=== PATIENT | female | born 1975 | race Caucasian/White ===

== ENCOUNTER 2024-07-06 14:07 | Inpatient (IN) | payer SELFPAY ==
[2024-07-06] VITALS (28 sets, daily range): BP systolic 86–149; BP diastolic 56–90; PULSE 66–120; RESP 12–40; TEMP 36.1–37.2; O2SAT 52–98; BMI 24.2
--- NOTE | 2024-07-06 14:16 | EKG12_ITS ---
Test Reason : SOB Blood Pressure : */* mmHG Vent. Rate : 100 BPM Atrial Rate : 100 BPM P-R Int : 132 ms QRS Dur : 80 ms QT Int : 330 ms P-R-T Axes : 75 146 37 degrees QTcB Int : 425 ms Normal sinus rhythm Biatrial enlargement Right axis deviation Pulmonary disease pattern Right ventricular hypertrophy Abnormal ECG Confirmed by DORINDA STRONG, JOANNE ([id number]), purchase request editor WILFREDO BERNAL ([id number]) on 07/07/2024 1:28:51 PM Referred By: Cy Ashraf Confirmed By: JOANNE SETH MD
--- NOTE | 2024-07-06 14:23 | EX.ED.DYSGE1 ---
HPI History of Present Illness Chief Complaint: Shortness of Breath Narrative Narrative: Patient is a 48-year-old female with a past medical history of substance abuse who presents to the emergency department chief complaint shortness of breath. Patient for the last several days has not been feeling well overall and had worsening progressive shortness of breath. According to the patient's daughter at bedside she notes that her self was in the hospital with pneumonia fairly recently as well. They state they did a COVID test yesterday at home and this was negative. Patient denies any recent travel history denies any history of blood clots. PFSH PFS Medical History unable to obtain Home Medications ?Medication ?Instructions ?Recorded ?Last Taken ?Type buprenorphine HCl 8 mg sublingual 16 mg sublingual DAILY 07/06/24 07/06/24 History tablet gabapentin 600 mg tablet 600 mg PO BID 07/06/24 07/06/24 History multivitamin (Daily Multi-Vitamin 1 tab PO DAILY 07/06/24 Unknown History tablet) Allergy/AdvReac Type Severity Reaction Status Date / Time Unable to Assess Allergy Verified 07/06/24 14:09 Social History Smoking Status: Current every day smoker tobacco type: cigarettes ROS ROS ED ROS Narrative Constitutional: Denies any fevers, chills, headaches, lightheadedness, dizziness Eyes: Denies change in vision double vision blurry vision Cardiovascular: Denies chest pain palpitations Respiratory: Complains of shortness of breath and cough with sputum production noted Abdomen: Denies abdominal pain nausea vomit diarrhea : Denies urinary symptoms Neurological: Denies numbness, weakness, tingling Musculoskeletal: Denies back pain Skin: Denies rashes or lesions EXAM Physical Exam Narrative Exam Narrative: General: Patient is lying in bed did appear to be short of breath Head: Atraumatic, normocephalic Eyes: PERRL bilaterally, EOMI bilaterally, no conjunctival injection noted Neck: Soft, supple, trachea midline Cardiovascular: Patient tachycardic with a regular rhythm no murmurs gallops rubs are noted Respiratory: Patient has diffuse end expiratory wheezing noted on exam Abdomen: Soft, nondistended, tender to palpation Extremities: +5/5 strength noted in the bilateral upper and lower extremities, radial pulses +2/4 in the bilateral extremity, no pedal edema exam Neurological: Patient following commands knew that she was at [facility] years 2024 Skin: Warm, dry, intact no rashes or lesions noted Const Vital Signs: 07/06/24 14:09 07/06/24 14:09 07/06/24 14:16 Temperature 96.9 F L 97.8 F Temperature Source Temporal Oral Pulse Rate 120 H 110 H Respiratory Rate 29 H 25 H Respiratory Effort Respiratory Pattern Blood Pressure 149/71 H 125/80 H Blood Pressure Mean 97 95 Pulse Ox 52 65 95 Oxygen Delivery Method Room Air Nasal Cannula High Flow Oxygen Flow Rate (L/min) 6 9 Fraction of Inspired Oxygen (FIO2) 07/06/24 14:16 07/06/24 14:18 07/06/24 14:30 Temperature Temperature Source Pulse Rate 103 H Respiratory Rate 20 H Respiratory Effort Short of Breath Respiratory Pattern Normal Blood Pressure Blood Pressure Mean Pulse Ox 95 Oxygen Delivery Method High Flow Oxygen Flow Rate (L/min) 9 Fraction of Inspired Oxygen (FIO2) 07/06/24 14:30 07/06/24 14:39 07/06/24 15:09 Temperature 98.7 F Temperature Source Oral Pulse Rate 104 H 107 H Respiratory Rate 30 H 24 H Respiratory Effort Respiratory Pattern Blood Pressure 130/78 H 129/78 H Blood Pressure Mean 95 95 Pulse Ox 95 96 95 Oxygen Delivery Method High Flow Nasal Cannula Nasal Cannula Oxygen Flow Rate (L/min) 9 9 Fraction of Inspired Oxygen (FIO2) 07/06/24 15:10 07/06/24 15:30 07/06/24 16:00 Temperature 98.7 F 98.8 F Temperature Source Oral Oral Pulse Rate 102 H 110 H 115 H Respiratory Rate 18 22 H 23 H Respiratory Effort Respiratory Pattern Blood Pressure 125/72 H 140/73 H 142/75 H Blood Pressure Mean 89 95 97 Pulse Ox 94 95 91 Oxygen Delivery Method Nasal Cannula High Flow High Flow Oxygen Flow Rate (L/min) 9 9 5 Fraction of Inspired Oxygen (FIO2) 07/06/24 16:30 07/06/24 17:00 07/06/24 17:34 Temperature 98.8 F Temperature Source Oral Pulse Rate 85 95 93 Respiratory Rate 19 H 16 16 Respiratory Effort Respiratory Pattern Blood Pressure 127/65 H 110/67 100/67 Blood Pressure Mean 85 81 78 Pulse Ox 94 94 95 Oxygen Delivery Method High Flow Nasal Cannula Room Air Oxygen Flow Rate (L/min) 92 5 Fraction of Inspired Oxygen (FIO2) 07/06/24 18:01 07/06/24 18:15 07/06/24 19:00 Temperature 98.9 F Temperature Source Oral Pulse Rate 93 102 H 103 H Respiratory Rate 14 17 15 Respiratory Effort Respiratory Pattern Normal Normal Blood Pressure 128/81 H Blood Pressure Mean 96 Pulse Ox 91 95 96 Oxygen Delivery Method Bi-pap Oxygen Flow Rate (L/min) Fraction of Inspired Oxygen (FIO2) 35 35 07/06/24 19:00 07/06/24 19:05 07/06/24 19:30 Temperature Temperature Source Pulse Rate 101 H 96 87 Respiratory Rate 20 H 16 16 Respiratory Effort Respiratory Pattern Blood Pressure 112/80 112/80 101/63 Blood Pressure Mean 90 90 75 Pulse Ox 96 92 89 Oxygen Delivery Method Bi-pap Bi-pap Oxygen Flow Rate (L/min) Fraction of Inspired Oxygen (FIO2) 07/06/24 20:00 07/06/24 20:00 07/06/24 20:30 Temperature Temperature Source Pulse Rate 83 82 Respiratory Rate 18 40 H Respiratory Effort Respiratory Pattern Blood Pressure 105/69 100/64 123/90 H Blood Pressure Mean 81 76 101 Pulse Ox 93 95 Oxygen Delivery Method Non-Rebreather Oxygen Flow Rate (L/min) 15 Fraction of Inspired Oxygen (FIO2) 07/06/24 20:30 07/06/24 20:55 07/06/24 21:00 Temperature Temperature Source Pulse Rate 101 H 80 Respiratory Rate 16 16 20 H Respiratory Effort Respiratory Pattern Blood Pressure 92/66 Blood Pressure Mean 74 Pulse Ox 97 94 Oxygen Delivery Method Mechanical Ventilator Oxygen Flow Rate (L/min) Fraction of Inspired Oxygen (FIO2) 50 50 07/06/24 21:00 07/06/24 21:30 07/06/24 22:00 Temperature Temperature Source Pulse Rate 77 73 69 Respiratory Rate 20 H 16 16 Respiratory Effort Respiratory Pattern Blood Pressure 92/66 92/56 L 109/66 Blood Pressure Mean 75 67 80 Pulse Ox 94 97 97 Oxygen Delivery Method Mechanical Ventilator Oxygen Flow Rate (L/min) Fraction of Inspired Oxygen (FIO2) 07/06/24 22:00 07/06/24 22:30 Temperature Temperature Source Pulse Rate 70 68 Respiratory Rate 16 16 Respiratory Effort Respiratory Pattern Blood Pressure 91/58 L 86/58 L Blood Pressure Mean 68 67 Pulse Ox 98 98 Oxygen Delivery Method Oxygen Flow Rate (L/min) Fraction of Inspired Oxygen (FIO2) MDM MDM MDM Narrative Medical decision making narrative: Patient is a 48-year-old female who presents to the emergency department the chief complaint of shortness of breath. Patient was noted be hypoxic on room air to 52%. On the differential diagnosis includes but not limited to COPD exacerbation as she is a smoker, pneumonia, pneumothorax, ACS, CHF. Once workup is obtained reviewed she will be reevaluated. Patient be given 3 DuoNebs and Solu-Medrol. Patient be given 30 cc/kg bolus of IV fluids which were ordered at 1420. Patient CBC was significant for leukocytosis of 11,000, hemoglobin is 17.1, plate count noted be 287. Patient's INR 1.1, PT 14.1. Patient sodium normal 139, potassium was 4.4, creatinine was 0.48. Patient's troponin was 7 with a delta troponin less than 6. Patient's EKG was reviewed which showed sinus tachycardia with rate of 100 beats per minutes with nonspecific ST depressions noted likely rate dependent and secondary to her hypoxia. Patient proBNP normal at 406. Patient urinalysis reviewed showed no evidence of infection. Patient's chest x-ray reviewed by myself and by radiology which showed central vascular/bronchovascular prominence could be technical or reflect vascular congestion atypical pneumonia pneumonitis could appear similar. Suspect a trace left pleural effusion additional description as above. Patient's arterial blood gas was reviewed which showed a respiratory acidosis with a pH 7.27 a pCO2 of 84.2 she was placed on BiPAP. Patient was having difficulty tolerating BiPAP she was given 0.5 mg of Ativan Reevaluation of patient she was still having difficulty another 0.5 mg of Ativan given she is now more comfortable on BiPAP. Given the patient's overall appearance of her chest x-ray and her symptoms I did add on a CTA of her chest. Patient CTA of her chest was reviewed and showed a right hilar mass with bronchus intermedius narrowing and resultant right middle lobe collapse findings concerning for primary lung malignancy. Right middle lobe consolidative groundglass opacities and interlobular septal thickening noted likely secondary to postobstructive pneumonitis. Multiple prominent mildly enlarged hilar and mediastinal likely metastatic lymph nodes no evidence of PE. Patient tested negative for COVID flu RSV. Given her right middle lobe collapse and concerning for primary lung malignancy we will have to transfer her. Patient's repeat blood gas was reviewed showed a pH 7.25 with a pCO2 of 90 indicating worsening hypercapnia and given her worsening mental status had further discussion with the patient and family members and ultimately decided to intubate her for her acute hypoxic hypercapnic respiratory failure in the setting of postobstructive pneumonia from a right lung mass. Patient was ultimately intubated see procedure note for further details. Attempted to talk with [facility] as this was their first preference in transfer and they state that they have no ICU beds. I called and discussed case with [facility] physician/cleat layer Dr. Yancey who accept the patient for admission. Did discuss results with the patient's for members at bedside they are agreeable with this plan. After approximately 30 minutes on the ventilator a repeat ABG was performed and showed a pH 7.34 with a pCO2 of 63 this is improved significantly. Postintubation x-ray was obtained that showed interval placement of the endotracheal tube with the tip approximate 4 cm above the pema with interval placement of the NG tube as well below the diaphragm. 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 Indications, risks, and benefits were explained at length. Procedure summary: Timeout was performed. My hands were washed daily prior to the procedure. Wore surgical cap, mask with protective eyewear, gown and gloves throughout the procedure. The patient was placed on a casing finisher and stuffer including continuous pulse oximetry. Rapid sequence intubation was conducted. The patient received 20 milligrams of etomidate for induction and 100 milligrams of succinylcholine for adequate paralysis. Using a video-assisted laryngoscope and a size 7.5 endotracheal tube with stylette, the patient was intubated on the first attempt. Stylet was removed and cuff balloon was inflated. Appropriate endotracheal tube position was confirmed by direct visualization of cord passage, fogging of the tube, CO2: Metric indicator and symmetric breath sounds. The tube was secured at 22 centimeters at the lips. Postintubation chest x-ray is pending at this time. Lab Data Labs: Laboratory Results - last 24 hr 07/06/24 07/06/24 07/06/24 14:56 14:56 14:56 WBC 11.6 H RBC 6.33 H Hgb 17.1 H Hct 55.6 H MCV 87.8 MCH 27.0 MCHC 30.8 L RDW Std Deviation 59.5 H RDW Coeff of Myla 19.8 H Plt Count 287 MPV 10.1 Immature Gran % (Auto) 0.400 Neut % (Auto) 79.9 H Lymph % (Auto) 14.7 L Dent % (Auto) 4.5 Eos % (Auto) 0.0 Baso % (Auto) 0.5 Absolute Neuts (auto) 9.3 H Absolute Lymphs (auto) 1.71 Nucleated RBC % 0 PT Cancelled INR Cancelled APTT Cancelled Sodium 139 Potassium 4.4 Chloride 95 L Carbon Dioxide 34.7 H Anion Gap 9 BUN 3 L Creatinine 0.48 L Estim Creat Clear Calc 127.57 Est GFR (MDRD) Non-Af 116 BUN/Creatinine Ratio 5.7 L Glucose 141 H Lactic Acid < 1.0 Calcium 9.2 Total Bilirubin 0.56 AST 19 ALT 13 Alkaline Phosphatase 119 H Troponin T High Sens 7 Cancelled Troponin T Hi Sens 2 Hr Troponin T Hi Sens 4Hr NT pro BNP II 406 Cancelled Total Protein 7.5 Albumin 3.5 Globulin 4.0 Albumin/Globulin Ratio 0.9 Urine Color Urine Clarity Urine pH Ur Specific [place] Urine Protein Urine Glucose (UA) Urine Ketones Urine Occult Blood Urine Nitrite Urine Bilirubin Urine Urobilinogen Ur Leukocyte Esterase Urine RBC Urine WBC Ur Squamous Epith Cells Amorphous Sediment Urine Bacteria Urine Mucus U Random Total Protein 07/06/24 07/06/24 07/06/24 16:02 16:06 17:01 WBC RBC Hgb Hct MCV MCH MCHC RDW Std Deviation RDW Coeff of Myla Plt Count MPV Immature Gran % (Auto) Neut % (Auto) Lymph % (Auto) Dent % (Auto) Eos % (Auto) Baso % (Auto) Absolute Neuts (auto) Absolute Lymphs (auto) Nucleated RBC % PT 14.1 INR 1.1 APTT 28.5 Sodium Potassium Chloride Carbon Dioxide Anion Gap BUN Creatinine Estim Creat Clear Calc Est GFR (MDRD) Non-Af BUN/Creatinine Ratio Glucose Lactic Acid Calcium Total Bilirubin AST ALT Alkaline Phosphatase Troponin T High Sens Troponin T Hi Sens 2 Hr < 6 Troponin T Hi Sens 4Hr NT pro BNP II Total Protein Albumin Globulin Albumin/Globulin Ratio Urine Color Yellow Urine Clarity Sl. Cloudy Urine pH 7.0 Ur Specific [place] 1.005 Urine Protein TNP Urine Glucose (UA) Normal Urine Ketones Negative Urine Occult Blood Negative Urine Nitrite Negative Urine Bilirubin Negative Urine Urobilinogen 4 H Ur Leukocyte Esterase Negative Urine RBC 0-5 SEEN Urine WBC 0-5 SEEN Ur Squamous Epith Cells 0-5 SEEN Amorphous Sediment 1+ Urine Bacteria 0 SEEN Urine Mucus 0 SEEN U Random Total Protein 14.1 H 07/06/24 19:20 WBC RBC Hgb Hct MCV MCH MCHC RDW Std Deviation RDW Coeff of Myla Plt Count MPV Immature Gran % (Auto) Neut % (Auto) Lymph % (Auto) Dent % (Auto) Eos % (Auto) Baso % (Auto) Absolute Neuts (auto) Absolute Lymphs (auto) Nucleated RBC % PT INR APTT Sodium Potassium Chloride Carbon Dioxide Anion Gap BUN Creatinine Estim Creat Clear Calc Est GFR (MDRD) Non-Af BUN/Creatinine Ratio Glucose Lactic Acid Calcium Total Bilirubin AST ALT Alkaline Phosphatase Troponin T High Sens Troponin T Hi Sens 2 Hr Troponin T Hi Sens 4Hr 8 NT pro BNP II Total Protein Albumin Globulin Albumin/Globulin Ratio Urine Color Urine Clarity Urine pH Ur Specific [place] Urine Protein Urine Glucose (UA) Urine Ketones Urine Occult Blood Urine Nitrite Urine Bilirubin Urine Urobilinogen Ur Leukocyte Esterase Urine RBC Urine WBC Ur Squamous Epith Cells Amorphous Sediment Urine Bacteria Urine Mucus U Random Total Protein ABG Data ABG results: ABG 07/06/24 07/06/24 17:27 20:06 Specimen Type ART ART Sample Site R Radial R Radial pH 7.27 L 7.26 L Bicarbonate Actual 38.5 H 40.3 H Total CO2 41 43 Base Excess 12 H 13 H O2 Saturation 90 L 88 L O2 % 5.0 45.0 ABG pCO2 84.2 H* 90.2 H* ABG pO2 71 L 67 L Morgan Test Positive Positive Respiration Rate 12 O2 Delivery Device Cannula BiPAP Vent Mode Not entered Not entered POC PEEP 6 Peak Inspir Pressure 12 Crit Call To/Read Back Yes Yes Radiography Diagnostic Testing: Clinical Impression(s) from Imaging Studies Chest X-Ray 07/06/24 15:20 IMPRESSION: 1. Central vascular/bronchovascular prominence could be technical or reflect early vascular congestion/trace interstitial edema. Atypical pneumonia/pneumonitis could appear similarly. 2. Suspected trace LEFT pleural effusion. 3. Additional description as above. Reading Location: [id number] Chest CTA 07/06/24 18:10 IMPRESSION: 1. 3.7 x 1.9 cm right hilar mass/adenopathy with bronchus intermedius narrowing and resultant right middle lobe collapsed. Findings concerning for primary lung malignancy,/malignant adenopathy. 2. Right middle lobe consolidative, ground-glass opacities and interlobular septal thickening, likely secondary to postobstructive pneumonitis. However, lymphangitic carcinomatosis can not be excluded. 3. Multiple prominent-mildly enlarged hilar and mediastinal likely metastatic lymph nodes. 4. No evidence of pulmonary embolism. Reading [facility] Chest X-Ray 07/06/24 21:10 IMPRESSION: Interval placement of endotracheal tube with the tip above the pema. Interval placement of nasogastric tube with the tip below the diaphragm. No active pulmonary disease. Reading Location: [id number] Discharge Plan Triage Chief Complaint: Shortness of Breath ED Provider: Cy Ashraf Dx/Rx/DC Orders Clinical Impression: Lung mass, Postobstructive pneumonia, Acute respiratory failure with hypoxia and hypercarbia, AMS (altered mental status) Prescriptions: No Action gabapentin 600 mg tablet 600 mg PO BID buprenorphine HCl 8 mg tablet, sublingual 16 mg sublingual DAILY multivitamin [Daily Multi-Vitamin] Tablet 1 tab PO DAILY Primary Care Provider: Care Physician,No Primary Referrals: Care Physician,No Primary [Primary Care Provider] - Print Language: Japanese Disposition Disposition: DC/Tx to Another Type of HCF
[2024-07-06] MEDS: Ipratropium/Albuterol Sulfate 3 ML AMPUL.NEB INHALATION ×3 (14:27→14:28)
[2024-07-06] MEDS: 0.9% Normal Saline (1000mL) 1,000 ML 999 ML IV ×2 (14:28→16:08)
[2024-07-06] MEDS: MethylPREDNISolone 125 MG/2 ML Vial IV (14:28)
[2024-07-06 15:14] LABS: Absolute Lymphocyte Count 1.71 X10^3/uL (0.83-4.51); Absolute Neutrophil Count 9.3 X10^3/uL (2.0-7.7); Basophil# 0.06 X10^3/uL; Basophil% 0.5 % (0-1); Hemoglobin 17.1 g/dL (12.0-15.0); Lymphocyte # 1.71 X10^3/ul (0.83-4.51); Lymphocyte % 14.7 % (19-41); Mean Corp Hgb Conc 30.8 g/dL (32-36); Mean Corpuscular Volume 87.8 fL (81-99); Mean Platelet Vol. 10.1 fl (6.2-12.0); Monocyte# 0.52 X10^3/uL; Monocyte% 4.5 % (0-10); NRBC Flagged by Analyzer 0 % (0-5); Neutrophil # 9.26 X10^3/uL (2.7-7.7); Neutrophil % 79.9 % (47-70); Platelet Count 287 K/mm3 (150-450); RBC Distribution Width CV 19.8 % (11.6-14.6); RBC Distribution Width SD 59.5 fl (35.1-43.9); Red Blood Count 6.33 M/mm3 (4.2-5.4); White Blood Count 11.6 K/mm3 (4.4-11.0)
--- NOTE | 2024-07-06 15:20 | RAD_ITS ---
PROCEDURE: CHEST PA AND LATERAL (RADCXR), 07/06/2024 REASON FOR EXAM: SOB TECHNIQUE: PA and lateral views of the chest were obtained. COMPARISON: None FINDINGS: Heart: Unremarkable. Mediastinum: Central vascular prominence. Lungs/pleura: Perihilar bronchovascular prominence which could be technical and related to chest wall attenuation. Suspect a trace LEFT pleural effusion. No visible pneumothorax. Bones: Mild spondylosis.. Lines and support devices: None. Other: None. RAD/Chest PA and Lateral IMPRESSION: 1. Central vascular/bronchovascular prominence could be technical or reflect ea rly vascular congestion/trace interstitial edema. Atypical pneumonia/pneumonitis could appear similarly. 2. Suspected trace LEFT pleural effusion. 3. Additional description as above. Reading Location: [id number]
[2024-07-06 15:36] LABS: Hematocrit 55.6 % (37-47)
[2024-07-06 16:03] LABS: Lactic Acid < 1.0 mmol/L (0.0-2.0)
[2024-07-06 16:05] LABS: ALB/GLOB Ratio 0.9 RATIO (0.9-2.4); AST(SGOT) 19 U/L (<=31); Alanine Aminotransfer ALT/SGPT 13 U/L (<=34); Albumin, Serum 3.5 g/dL (3.5-5.0); Alkaline Phosphatase 119 U/L (35-104); Anion Gap 9 (5-15); BUN 3 mg/dL (4-19); BUN/Creat Ratio 5.7 RATIO (10-20); Calcium,Total 9.2 mg/dL (7.6-11.0); Carbon Dioxide 34.7 mmol/L (21.0-32.0); Chloride 95 mmol/L (98-108); Creatinine, Serum 0.48 mg/dL (0.70-1.20); EST Glomerular Filtration Rate 116 (>60); Estimated Creatinine Clearance 127.57 ml/min (50-250); Glucose 141 mg/dL (70-99); Potassium 4.4 mmol/L (3.3-5.1); Pro- Brain NATRIURETIC PEPTIDE 406 pg/mL (<=450); Protein, Total 7.5 g/dL (5.9-8.4); Sodium Level 139 mmol/L (133-145); Total Bilirubin 0.56 mg/dL (0.00-1.30); Troponin T High Sensitivity 7 ng/L (<=14)
[2024-07-06] MEDS: Ceftriaxone 2 GM in 0.9% Normal Saline (50mL MB+) 50 ML IV (16:08)
[2024-07-06 16:16] LABS: Bacteria 0 SEEN /hpf (None Seen); Mucous, Urine 0 SEEN /hpf (<or=2+)
[2024-07-06 16:21] LABS: Color, Urine Yellow (Yellow); Glucose, Dipstick Normal (Normal); Ketone-Dipstick Negative (Negative); Leukocyte Esterase-Dipstick Negative /ul (Negative); Nitrite-Dipstick Negative (Negative); Occult Blood-Urine Negative /ul (Negative); Specific Gravity, Urine 1.005 (1.002-1.030); Urine Bilirubin Dipstick Negative (Negative); Urine Clarity Sl. Cloudy (Clear); Urine Urobilinogen 4 mg/dl (Normal)
[2024-07-06 16:34] LABS: International Normalized Ratio 1.1; Partial Thromboplast Time 28.5 Seconds (24.1-36.2); Prothrombin Time (Protime)PT. 14.1 SECONDS (11.7-14.9)
[2024-07-06] MEDS: Azithromycin 500 MG in 0.9% Normal Saline (250mL Bag) 250 ML 255 MG IV (16:59)
[2024-07-06 17:32] LABS: Allen Test Positive; Base Excess 12 mmol/L (-2 to +2); Bicarbonate 38.5 mmol/L (22-26); Blood Gas Specimen Type ART; Mode Not entered; O2 Delivery Device Cannula; PO2 71 mmHG (75-100); SITE R Radial; SO2 90 % (95-99); Total Carbon Dioxide 41 mmol/L; pCO2 84.2 mmHg (35-45); pH 7.27 (7.35-7.45)
--- NOTE | 2024-07-06 17:39 | CPS ---
Critical value verified times two.Notified DR. Ashraf.
[2024-07-06 17:40] LABS: Troponin T High Sens 2 HR < 6 ng/L (<=14)
[2024-07-06 17:42] LABS: Amorphous Sediment 1+; Red Blood Cells-Urine 0-5 SEEN /hpf (0-5); Squamous Epithelial Cells - UA 0-5 SEEN /hpf (5-10); White Blood Cells 0-5 SEEN /hpf (0-5)
[2024-07-06 17:45] LABS: Protein, Urine (Random) 14.1 mg/dL (0.0-12.0)
[2024-07-06] MEDS: Lorazepam 2 MG/ML WCH Syringe 0.5 MG IV ×3 (17:55→20:24)
--- NOTE | 2024-07-06 18:10 | CT_ITS ---
PROCEDURE: CTA CHEST W/WO CONTRAST 07/06/2024 REASON FOR EXAM: SOB TECHNIQUE: CTA axial imaging of the chest with intravenous contrast. Multiplanar and multisequence images were obtained. PATIENT PREPARATION: Per protocol One or more dose reduction techniques were used (e.g., Automated exposure control, adjustment of the mA and/or kV according to patient size, use of iterative reconstruction technique). CONTRAST: Omnipaque 350 VOLUME: 100 mL Not Provided Gauge IV COMPARISON: Chest radiograph 07/06/2024 FINDINGS: Hardware: None Lymph nodes: Multiple enlarged hilar and mediastinal lymph nodes. For example 26 mm left para-aortic node (series 2 image 173); left mm left hilar node (series 2, image 160); 15 mm right hilar node (image 132). Heart: Mild cardiomegaly. No coronary artery calcifications. Thoracic Aorta: No thoracic aortic aneurysm or dissection. Pulmonary Vessels: No large central pulmonary emboli are identified. Contrast timing is suboptimal for evaluation of more distal branches. Most Proximal Level of Embolus (if embolus present): None Lungs and Airways: Central airways are patent without endobronchial lesions. 3.7 x 1.9 cm confluence right hilar mass (series 2, image 152), with narrowing of the right bronchus intermedius, with associated right middle and collapse. There is diffuse interlobular septal thickening within the right middle lobe with diffuse ground- glass opacities. Findings concerning for postobstructive pneumonitis. Diffuse bilateral bronchial wall thickening. Patchy opacities in the bilateral lower lobes, compatible with atelectasis. No pneumothorax. No pleural effusion. Upper Abdomen: Visualized portions of the upper abdominal viscera are unremarkable. Bones: Bone windows are unremarkable. CT/CTA Chest W/WO Contrast IMPRESSION: 1. 3.7 x 1.9 cm right hilar mass/adenopathy with bronchus intermedius narrowing and resultant right middle lobe collapsed. Findings concerning for primary lung malignancy,/malignant adenopathy. 2. Right middle lobe consolidative, ground-glass opacities and interlobular sep david thickening, likely secondary to postobstructive pneumonitis. However, lymphangitic carcinomatosis can not be e xcluded. 3. Multiple prominent-mildly enlarged hilar and mediastinal likely metastatic l ymph nodes. 4. No evidence of pulmonary embolism. Reading Location[facility]
[2024-07-06 20:03] LABS: Troponin T High Sens 4 HR 8 ng/L (<=14)
[2024-07-06 20:10] LABS: Allen Test Positive; Base Excess 13 mmol/L (-2 to +2); Bicarbonate 40.3 mmol/L (22-26); Blood Gas Specimen Type ART; Mode Not entered; O2 Delivery Device BiPAP; PEEP 6; PIP 12; PO2 67 mmHG (75-100); RR 12; SITE R Radial; SO2 88 % (95-99); Total Carbon Dioxide 43 mmol/L; pCO2 90.2 mmHg (35-45); pH 7.26 (7.35-7.45)
[2024-07-06] MEDS: Etomidate 20 MG/10 ML Vial IV (20:36)
[2024-07-06] MEDS: Succinylcholine Chloride 200 MG/10 ML Vial 100 MG IV (20:36)
[2024-07-06] MEDS: Midazolam 2 MG/2 ML Syringe 4 MG IV ×2 (20:38→21:27)
[2024-07-06] MEDS: fentaNYL 100 MCG/2 ML Ampul IV (20:38)
[2024-07-06] MEDS: Propofol 10MG/Ml 1,000 MG/100 ML Bottle 5.9 MG CONT INF (20:39)
[2024-07-06] MEDS: Propofol 200 MG/20 ML Vial 40 MG IV BOLUS ×2 (20:50→21:16)
--- NOTE | 2024-07-06 21:01 | EKG12_ITS ---
Test Reason : SOB Blood Pressure : */* mmHG Vent. Rate : 81 BPM Atrial Rate : 81 BPM P-R Int : 138 ms QRS Dur : 76 ms QT Int : 376 ms P-R-T Axes : 77 104 59 degrees QTcB Int : 436 ms Normal sinus rhythm Possible Left atrial enlargement Rightward axis Borderline ECG Confirmed by FROYLAN POON ([id number]), art editor WILFREDO BERNAL ([id number]) on 07/08/2024 1:23:30 PM Referred By: Cy Ashraf Confirmed By: FROYLAN POON
[2024-07-06] MEDS: fentaNYL drip 100 ML 5 MCG CONT INF (21:02)
--- NOTE | 2024-07-06 21:05 | ED.RN ---
verbal order from Dr. Ashraf to increase fentanyl drip to 125mcg/hr.
--- NOTE | 2024-07-06 21:10 | RAD_ITS ---
PROCEDURE: CHEST 1 VIEW (PORTABLE) 07/06/2024 REASON FOR EXAM: POST INTUBATION TECHNIQUE: Frontal view of the chest. COMPARISON: Earlier today FINDINGS: Hardware: Interval placement of endotracheal tube with the tip approximately 4 cm above the pema. Interval placement of nasogastric tube with the tip below the diaphragm. Heart: Cardiac and mediastinal contours are stable. Lungs: The lungs are clear. Bones: The bones are unremarkable. Other: RAD/Chest 1 View (Portable) IMPRESSION: Interval placement of endotracheal tube with the tip above the pema. Interval placement of nasogastric tube with the tip below the diaphragm. No active pulmonary disease. Reading Location: [id number]
--- NOTE | 2024-07-06 21:40 | ED.RN ---
titration of fentanyl drip verbal order given by Dr. Ashraf.
[2024-07-06] MEDS: 0.9% Normal Saline (500mL Bag) 500 ML 999 ML IV (21:46)
[2024-07-06] MEDS: Lactated Ringers 1,000 ML 100 ML IV (22:05)
--- NOTE | 2024-07-06 22:38 | CPS ---
Critical ABG values, Dr. Ashraf aware. Not enough blood for re-run.
[2024-07-06] MEDS: Propofol 200 MG/20 ML Vial 50 MG IV BOLUS (23:13)
[2024-07-06 23:31] LABS: CPK Total, Creatine Kinase 22 U/L (24-195); Triglycerides 63 mg/dL
--- NOTE | 2024-07-06 23:49 | PCM.HP.STD ---
HPI - General General Date of Admission: 07/06/24 Date of Service: 07/06/24 Chief Complaint: Dyspnea. HPI Narrative The patient is a 48 y/o F w/ PMHx: Tobacco use, Hx benign colon mass s/p ex lap with excision, History Polysubstance abuse on currently Suboxone therapy presents to the [facility] ED on 07/06/2024 with history of several days of general fatigue, malaise, dyspnea, worse with exertion with recent ill contact specifically her daughter who also had pneumonia with recent outpatient negative home COVID testing with no recent travel but given worsened symptoms primarily with dyspnea, productive cough without any fevers or chills prompted eventual ED evaluation given severity of dyspnea. Workup in the ED included initial T98.7 Oral, heart 103, respiratory rate 20, initially noted to be 52% on room air at arrival it quickly transitioned to 95% on high flow 9 L eventually transition to 92% on 35% FiO2 BiPAP however patient eventually decompensated and was eventually intubated with most recent repeat vitals T97.9, heart rate 58, BP 108/68, respiratory rate 98% on 50% FiO2 mechanically intubated, CBC with WBC 11.6, hemoglobin 17.1, MCV 87.8, platelet 287 with left shift, unremarkable coags, ABG obtained when patient had been initially on nasal cannula with pH 7.27, bicarb 38.5, O2 saturation 90%, pCO2 84.2, PO271 and from record potentially on 5 L at that time but uncertain, CMP with chloride 95, carbon oxide 34.7, BUN/creatinine 3/0.48, GFR 116, glucose 141, alk phos 119 otherwise hepatic profile unremarkable, troponin initial 7 with repeat delta less than 6, NT proBNP II normal range at 406, lactic acid less than 1, urinalysis with no obvious evidence of UTI, chest x-ray with central vascular bronchovascular prominence possibly early vascular congestion/trace interstitial edema versus atypical pneumonia/pneumonitis, suspected left trace pleural effusion, EKG with ST without acute evidence of ischemia, CTA chest with 3.7 x 1.9 right hilar mass/adenopathy with bronchus intermedius narrowing and resultant right middle lobe collapse concerning for primary lung malignancy/malignant adenopathy with right middle lobe consolidative ground-glass opacities and interlobular septal thickening likely secondary to postobstructive pneumonitis however lymphangitic carcinomatosis cannot be excluded, multiple prominent mildly enlarged hilar and mediastinal likely metastatic lymph nodes with no evidence of PE, blood culture x 2 and urine culture pending per ED. In the ED patient administered Solu-Medrol 125 mg IV x 1, lorazepam 0.5 mg IV x 3, DuoNeb therapy x 3, azithromycin 5 mg IV x 1, Rocephin 2 g IV x 1, fentanyl drip, propofol drip, fentanyl 100 mcg IV x 1 push, Versed 4 mg IV x 2, propofol 40 mg IV bolus x 2, propofol 50 mg IV bolus x 1 as well as succinylcholine 100 mg IV x 1 in addition to 30 cc/kg IV fluid bolus. PFSH Medical History Polysubstance abuse History of benign colon tumor Tobacco use Medical History unable to obtain Home Medications ?Medication ?Instructions ?Recorded ?Last Taken ?Type buprenorphine HCl 8 mg sublingual 16 mg sublingual DAILY 07/06/24 07/06/24 History tablet gabapentin 600 mg tablet 600 mg PO BID 07/06/24 07/06/24 History multivitamin (Daily Multi-Vitamin 1 tab PO DAILY 07/06/24 Unknown History tablet) Allergy/AdvReac Type Severity Reaction Status Date / Time Latex, Natural Rubber Allergy Mild Hives Verified 07/06/24 23:12 Family History (Updated 07/07/24 @ 00:[address] Mila Hartman MD) Mother COPD (chronic obstructive pulmonary disease) Heart disease Father Alcoholism COPD (chronic obstructive pulmonary disease) Surgical History History of hysterectomy H/O exploratory laparotomy Social History (Updated 07/07/24 @ 00:[address] Mila Hartman MD) household members: spouse Smoking Status: Current every day smoker tobacco type: cigarettes Smoking packs per day: 1.5 Smoking cigarettes per day: 30.0 alcohol intake: never substance use type: other details: History of previous Xanax, Percocets, Subutex abuse. Possible ongoing use. ROS Review of Systems ROS Unobtainable: due to encephalopathy and due to endotracheal tube Vital Signs Vital Signs Vital Signs: 07/06/24 14:09 07/06/24 14:09 07/06/24 14:16 Temperature 96.9 F L 97.8 F Temperature Source Temporal Oral Pulse Rate 120 H 110 H Respiratory Rate 29 H 25 H Respiratory Effort Respiratory Pattern Blood Pressure 149/71 H 125/80 H Blood Pressure Mean 97 95 Pulse Ox 52 65 95 Oxygen Delivery Method Room Air Nasal Cannula High Flow Oxygen Flow Rate (L/min) 6 9 Fraction of Inspired Oxygen (FIO2) 07/06/24 14:16 07/06/24 14:18 07/06/24 14:30 Temperature Temperature Source Pulse Rate 103 H Respiratory Rate 20 H Respiratory Effort Short of Breath Respiratory Pattern Normal Blood Pressure Blood Pressure Mean Pulse Ox 95 Oxygen Delivery Method High Flow Oxygen Flow Rate (L/min) 9 Fraction of Inspired Oxygen (FIO2) 07/06/24 14:30 07/06/24 14:39 07/06/24 15:09 Temperature 98.7 F Temperature Source Oral Pulse Rate 104 H 107 H Respiratory Rate 30 H 24 H Respiratory Effort Respiratory Pattern Blood Pressure 130/78 H 129/78 H Blood Pressure Mean 95 95 Pulse Ox 95 96 95 Oxygen Delivery Method High Flow Nasal Cannula Nasal Cannula Oxygen Flow Rate (L/min) 9 9 Fraction of Inspired Oxygen (FIO2) 07/06/24 15:10 07/06/24 15:30 07/06/24 16:00 Temperature 98.7 F 98.8 F Temperature Source Oral Oral Pulse Rate 102 H 110 H 115 H Respiratory Rate 18 22 H 23 H Respiratory Effort Respiratory Pattern Blood Pressure 125/72 H 140/73 H 142/75 H Blood Pressure Mean 89 95 97 Pulse Ox 94 95 91 Oxygen Delivery Method Nasal Cannula High Flow High Flow Oxygen Flow Rate (L/min) 9 9 5 Fraction of Inspired Oxygen (FIO2) 07/06/24 16:30 07/06/24 17:00 07/06/24 17:34 Temperature 98.8 F Temperature Source Oral Pulse Rate 85 95 93 Respiratory Rate 19 H 16 16 Respiratory Effort Respiratory Pattern Blood Pressure 127/65 H 110/67 100/67 Blood Pressure Mean 85 81 78 Pulse Ox 94 94 95 Oxygen Delivery Method High Flow Nasal Cannula Room Air Oxygen Flow Rate (L/min) 92 5 Fraction of Inspired Oxygen (FIO2) 07/06/24 18:01 07/06/24 18:15 07/06/24 19:00 Temperature 98.9 F Temperature Source Oral Pulse Rate 93 102 H 103 H Respiratory Rate 14 17 15 Respiratory Effort Respiratory Pattern Normal Normal Blood Pressure 128/81 H Blood Pressure Mean 96 Pulse Ox 91 95 96 Oxygen Delivery Method Bi-pap Oxygen Flow Rate (L/min) Fraction of Inspired Oxygen (FIO2) 35 35 07/06/24 19:00 07/06/24 19:05 07/06/24 19:30 Temperature Temperature Source Pulse Rate 101 H 96 87 Respiratory Rate 20 H 16 16 Respiratory Effort Respiratory Pattern Blood Pressure 112/80 112/80 101/63 Blood Pressure Mean 90 90 75 Pulse Ox 96 92 89 Oxygen Delivery Method Bi-pap Bi-pap Oxygen Flow Rate (L/min) Fraction of Inspired Oxygen (FIO2) 07/06/24 20:00 07/06/24 20:00 07/06/24 20:30 Temperature Temperature Source Pulse Rate 83 82 Respiratory Rate 18 40 H Respiratory Effort Respiratory Pattern Blood Pressure 105/69 100/64 123/90 H Blood Pressure Mean 81 76 101 Pulse Ox 93 95 Oxygen Delivery Method Non-Rebreather Oxygen Flow Rate (L/min) 15 Fraction of Inspired Oxygen (FIO2) 07/06/24 20:30 07/06/24 20:55 07/06/24 21:00 Temperature Temperature Source Pulse Rate 101 H 80 Respiratory Rate 16 16 20 H Respiratory Effort Respiratory Pattern Blood Pressure 92/66 Blood Pressure Mean 74 Pulse Ox 97 94 Oxygen Delivery Method Mechanical Ventilator Oxygen Flow Rate (L/min) Fraction of Inspired Oxygen (FIO2) 50 50 07/06/24 21:00 07/06/24 21:30 07/06/24 22:00 Temperature Temperature Source Pulse Rate 77 73 69 Respiratory Rate 20 H 16 16 Respiratory Effort Respiratory Pattern Blood Pressure 92/66 92/56 L 109/66 Blood Pressure Mean 75 67 80 Pulse Ox 94 97 97 Oxygen Delivery Method Mechanical Ventilator Oxygen Flow Rate (L/min) Fraction of Inspired Oxygen (FIO2) 07/06/24 22:00 07/06/24 22:30 07/06/24 23:00 Temperature Temperature Source Pulse Rate 70 68 71 Respiratory Rate 16 16 16 Respiratory Effort Respiratory Pattern Blood Pressure 91/58 L 86/58 L 118/76 Blood Pressure Mean 68 67 90 Pulse Ox 98 98 95 Oxygen Delivery Method Mechanical Ventilator Oxygen Flow Rate (L/min) Fraction of Inspired Oxygen (FIO2) 50 07/06/24 23:28 07/06/24 23:30 Temperature 98.2 F Temperature Source Temporal Pulse Rate 66 66 Respiratory Rate 16 16 Respiratory Effort Respiratory Pattern Blood Pressure 106/65 106/65 Blood Pressure Mean 78 78 Pulse Ox 97 98 Oxygen Delivery Method Mechanical Ventilator Mechanical Ventilator Oxygen Flow Rate (L/min) Fraction of Inspired Oxygen (FIO2) 50 50 Weight Weight: 145 lb 11.609 oz Body Mass Index (BMI) 24.2 Physical Exam Narrative Physical Examination: General: Intubated, sedated, symmetric rise, no obvious distress currently however has required several boluses of propofol as well as fentanyl 100 mcg IV push per record. Skin: Normal color, normal turgor, no icterus, no cyanosis except occasional stage ecchymoses, abrasion. HEENT: AT/NC, EOM unable to be assessed well given intubated and sedated status, PERRLA, mildly dry MM, hirsutism evident, no carotid bruits or JVD noted. Lungs: Diminished, greater bases, right greater than left, symmetric rise, intubated, still persistent occasional end expiratory wheeze but per discussion with ED physician significantly improved since arrival, mildly coarse/rhonchorous primarily right lateral. Heart: Mildly bradycardic with regular rhythm; no gallop, rub audible. Abdomen: Soft, no grimacing with palpation, no obvious distention, distant BS, no appreciated HSM. Extremities: No cyanosis, no clubbing, mild ankle not markedly pitting edema bilaterally. Neurological: Intubated, sedated, cognitive function not baseline intact given current status, pupils equally reactive to light and accommodation, cranial nerves difficult to assess given intubated and sedated status, currently not moving extremities, strength accordingly severely globally decreased. Psychiatric: Affect appears flat, sedated, no acute evidence of depressive or anxiety feelings with no previous documented history but given substance abuse certainly could be a component. Results Lab / Micro Data 07/06/24 14:56 07/06/24 14:56 Labs: Laboratory Results - last 24 hr 07/06/24 14:56: WBC 11.6 H, RBC 6.33 H, Hgb 17.1 H, Hct 55.6 H, MCV 87.8, MCH 27.0, MCHC 30.8 L, RDW Std Deviation 59.5 H, RDW Coeff of Myla 19.8 H, Plt Count 287, MPV 10.1, Immature Gran % (Auto) 0.400, Neut % (Auto) 79.9 H, Lymph % (Auto) 14.7 L, Parke % (Auto) 4.5, Eos % (Auto) 0.0, Baso % (Auto) 0.5, Absolute Neuts (auto) 9.3 H, Absolute Lymphs (auto) 1.71, Nucleated RBC % 0, PT Cancelled, INR Cancelled, APTT Cancelled, Sodium 139, Potassium 4.4, Chloride 95 L, Carbon Dioxide 34.7 H, Anion Gap 9, BUN 3 L, Creatinine 0.48 L, Estim Creat Clear Calc 127.57, Est GFR (MDRD) Non-Af 116, BUN/Creatinine Ratio 5.7 L, Glucose 141 H, Lactic Acid < 1.0, Calcium 9.2, Total Bilirubin 0.56, AST 19, ALT 13, Alkaline Phosphatase 119 H, Troponin T High Sens 7 07/06/24 14:56: Troponin T High Sens Cancelled, NT pro BNP II 406 07/06/24 14:56: NT pro BNP II Cancelled, Total Protein 7.5, Albumin 3.5, Globulin 4.0, Albumin/Globulin Ratio 0.9 07/06/24 16:02: U Random Total Protein 14.1 H 07/06/24 16:06: PT 14.1, INR 1.1, APTT 28.5, Urine Color Yellow, Urine Clarity Sl. Cloudy, Urine pH 7.0, Ur Specific Salyer 1.005, Urine Protein TNP, Urine Glucose (UA) Normal, Urine Ketones Negative, Urine Occult Blood Negative, Urine Nitrite Negative, Urine Bilirubin Negative, Urine Urobilinogen 4 H, Ur Leukocyte Esterase Negative, Urine RBC 0-5 SEEN, Urine WBC 0-5 SEEN, Ur Squamous Epith Cells 0-5 SEEN, Amorphous Sediment 1+, Urine Bacteria 0 SEEN, Urine Mucus 0 SEEN 07/06/24 17:01: Troponin T Hi Sens 2 Hr < 6 07/06/24 19:20: Total Creatine Kinase 22 L, Troponin T Hi Sens 4Hr 8, Triglycerides 63 Micro: Microbiology 07/06/24 14:55 Mucosa - Nose SARS-CoV-2, Influenza & RSV (PCR) - Final ABG Data ABG results: ABG 07/06/24 07/06/24 17:27 20:06 Specimen Type ART ART Sample Site R Radial R Radial pH 7.27 L 7.26 L Bicarbonate Actual 38.5 H 40.3 H Total CO2 41 43 Base Excess 12 H 13 H O2 Saturation 90 L 88 L O2 % 5.0 45.0 ABG pCO2 84.2 H* 90.2 H* ABG pO2 71 L 67 L Morgan Test Positive Positive Respiration Rate 12 O2 Delivery Device Cannula BiPAP Vent Mode Not entered Not entered POC PEEP 6 Peak Inspir Pressure 12 Crit Call To/Read Back Yes Yes Imaging Radiology Impression Chest X-Ray 07/06/24 15:20 IMPRESSION: 1. Central vascular/bronchovascular prominence could be technical or reflect early vascular congestion/trace interstitial edema. Atypical pneumonia/pneumonitis could appear similarly. 2. Suspected trace LEFT pleural effusion. 3. Additional description as above. Reading Location: [facility] Chest CTA 07/06/24 18:10 IMPRESSION: 1. 3.7 x 1.9 cm right hilar mass/adenopathy with bronchus intermedius narrowing and resultant right middle lobe collapsed. Findings concerning for primary lung malignancy,/malignant adenopathy. 2. Right middle lobe consolidative, ground-glass opacities and interlobular septal thickening, likely secondary to postobstructive pneumonitis. However, lymphangitic carcinomatosis can not be excluded. 3. Multiple prominent-mildly enlarged hilar and mediastinal likely metastatic lymph nodes. 4. No evidence of pulmonary embolism. Reading Location: [facility] Chest X-Ray 07/06/24 21:10 IMPRESSION: Interval placement of endotracheal tube with the tip above the pema. Interval placement of nasogastric tube with the tip below the diaphragm. No active pulmonary disease. Reading Location: [facility] Assessment & Plan Assessment/Plan (1) Acute respiratory failure with hypoxia and hypercarbia: (2) Lung mass: (3) Postobstructive pneumonia: PLAN: Plan The patient is a 48 y/o F w/ PMHx: Tobacco use, Hx benign colon mass s/p ex lap with excision, History Polysubstance abuse on currently Suboxone therapy presents to the [facility] ED on 07/06/2024 with history of several days of general fatigue, malaise, dyspnea, worse with exertion with recent ill contact specifically her daughter who also had pneumonia with recent outpatient negative home COVID testing with no recent travel but given worsened symptoms primarily with dyspnea, productive cough without any fevers or chills prompted eventual ED evaluation given severity of dyspnea. #1. Acute Hypoxic and Hypercarbic Respiratory Failure secondary to Acute RML Post-obstructive Pneumonia and Acute on suspected Chronic undiagnosed COPD Exacerbation complicated by significant right hilar mass and adenopathy with severe bronchus intermedius narrowing with resulting right middle lobe collapse concerning for primary lung malignancy/malignant adenopathy: Will admit to the ICU as patient is awaiting tertiary bed transfer given concern for narrowing of the bronchus with lung collapse, will consult ICU physician in the interim per protocol, will request repeat ABG with further vent setting changes pending results, will continue intubated and sedated status complicated by her underlying substance use history as noted, continue ATC duonebs, PRN albuterol, maintain on IV vancomycin and Zosyn given severity of presentation and postobstructive process as well as possible polysubstance abuse history with MRSA screen requested, maintain on IV solumedrol, HOB, IS parameters w/ pending sputum cultures, full respiratory viral panel, procalcitonin and urine antigens. Bld cx x 2 obtained in the ED. #2. Polysubstance abuse: Patient spouse reports that unfortunately she does have a history of polysubstance abuse including in the past Xanax, Percocets and Subutex, she had reported that she had been clean for some time although from discussion with him there is a possibility that she is currently been using Subutex again which is not prescribed to her. UDS has been requested. HIV, hepatitis and syphilis testing requested. May complicate presentation in regards to sedation needs thus we will continue sublingual Suboxone and less intense of his preference to hold as this may mat some usage of patient's sedated regimen. Patient is awaiting transfer to tertiary facility as noted however if the transfer is delayed or prolonged may require further treatment. #3. Hyperglycemia, mild: Patient with no diabetic history, admission glucose 141, suspect stress response more likely, hemoglobin A1c will be requested to be cautious given planned steroid usage. #4. Tobacco Abuse: Will encourage once patient alert and appropriate tobacco cessation, inpatient consultation per RT will be requested, NR if desired. #5. DVT prophylaxis: Lovenox. #6. CODE status: Patient does not have formal healthcare power of associate attorney or living will in place but her would be her medical decision-maker. Full Code status. Charges/Coding Visit Charges Inpatient E&M: 45749 Init Hosp L3
[2024-07-07] VITALS (38 sets, daily range): BP systolic 96–133; BP diastolic 63–80; PULSE 58–95; RESP 16–21; TEMP 36.4–37.3; O2SAT 88–98; BMI 24.9
[2024-07-07] MEDS: Pantoprazole Sodium 40 MG in 0.9% Normal Saline (100mL MB+) 100 ML 330 MG IV ×3 (01:06→21:05)
[2024-07-07] MEDS: 0.9% Normal Saline (1000mL) 1,000 ML 100 ML IV (01:09)
[2024-07-07] MEDS: Vancomycin HCl 1,750 MG in 0.9% Normal Saline (500mL Bag) 500 ML 250 MG IV (01:34)
[2024-07-07 01:35] LABS: Amphetamine Urine NEGATIVE (<1000 ng/mL); Barbiturate Urine NEGATIVE (< 200 ng/mL); Benzodiazepine Urine PRESUMPTIVE POSITIVE (< 200 ng/mL); Buprenorphine Urine PRESUMPTIVE POSITIVE (< 200 ng/mL); Cocaine Urine NEGATIVE (< 300 ng/mL); Fentanyl, Urine NEGATIVE; Methadone Urine NEGATIVE (< 300 ng/mL); Opiates Urine NEGATIVE (< 300 ng/mL); Oxycodone, Urine NEGATIVE (< 100 ng/mL); PCP Urine NEGATIVE (< 25 ng/mL); THC Urine NEGATIVE (< 50 ng/mL)
[2024-07-07 01:35] LABS: Allen Test Positive; Base Excess 8 mmol/L (-2 to +2); Bicarbonate 31.9 mmol/L (22-26); Blood Gas Specimen Type ART; Mode AC; O2 Delivery Device Adult Vent; PEEP 5; PO2 106 mmHG (75-100); RR 16; SITE L Radial; SO2 98 % (95-99); Total Carbon Dioxide 33 mmol/L; pCO2 44.2 mmHg (35-45); pH 7.47 (7.35-7.45)
[2024-07-07] MEDS: CHLORHEXIDINE GLUC 2% CLOTH 1 EACH TOWELETTE TOPICAL (01:56)
[2024-07-07] MEDS: 0.9% Saline Lock 10 ML Syringe IV ×2 (01:56→21:59)
[2024-07-07] MEDS: Propofol 10MG/Ml 1,000 MG/100 ML Bottle 19.8 MG CONT INF (02:00)
[2024-07-07 02:02] LABS: Absolute Neutrophil Count 6.7 X10^3/uL (2.0-7.7); Basophil# 0.02 X10^3/uL; Basophil% 0.2 % (0-1); Hemoglobin 14.2 g/dL (12.0-15.0); Lymphocyte % 16.5 % (19-41); Mean Corp Hgb Conc 30.9 g/dL (32-36); Mean Corpuscular Hgb 26.6 pg (27.0-32.0); Mean Corpuscular Volume 86.3 fL (81-99); Mean Platelet Vol. 9.4 fl (6.2-12.0); Monocyte# 0.31 X10^3/uL; Monocyte% 3.6 % (0-10); NRBC Flagged by Analyzer 0 % (0-5); Neutrophil # 6.73 X10^3/uL (2.7-7.7); Neutrophil % 79.2 % (47-70); Platelet Count 243 K/mm3 (150-450); RBC Distribution Width CV 19.1 % (11.6-14.6); RBC Distribution Width SD 58.2 fl (35.1-43.9); Red Blood Count 5.33 M/mm3 (4.2-5.4); White Blood Count 8.5 K/mm3 (4.4-11.0)
[2024-07-07] MEDS: fentaNYL drip 100 ML 20 MCG CONT INF ×5 (02:03→23:00)
[2024-07-07 02:25] LABS: ALB/GLOB Ratio 0.9 RATIO (0.9-2.4); AST(SGOT) 22 U/L (<=31); Alanine Aminotransfer ALT/SGPT 13 U/L (<=34); Albumin, Serum 2.6 g/dL (3.5-5.0); Alkaline Phosphatase 85 U/L (35-104); Anion Gap 8 (5-15); BUN 4 mg/dL (4-19); BUN/Creat Ratio 11.2 RATIO (10-20); Calcium,Total 8.2 mg/dL (7.6-11.0); Carbon Dioxide 27.6 mmol/L (21.0-32.0); Chloride 104 mmol/L (98-108); Creatinine, Serum 0.39 mg/dL (0.70-1.20); EST Glomerular Filtration Rate 122 (>60); Estimated Creatinine Clearance 157.01 ml/min (50-250); Globulin 2.9 g/dL (2.2-4.2); Glucose 128 mg/dL (70-99); Potassium 4.4 mmol/L (3.3-5.1); Protein, Total 5.5 g/dL (5.9-8.4); Sodium Level 140 mmol/L (133-145); Total Bilirubin 0.37 mg/dL (0.00-1.30)
[2024-07-07 02:27] LABS: Hepatitis B Surface Antibody Nonreactive
--- NOTE | 2024-07-07 02:31 | PCM.RX.CS ---
Consult Antibiotic Management Pharmacy has been consulted to manage selected antibiotic: Vancomycin Type of Intervention Type of Consult: New start Labs Labs: Sodium 140 mmol/L (133-145) 07/07/24 01:50 Potassium 4.4 mmol/L (3.3-5.1) 07/07/24 01:50 Chloride 104 mmol/L (98-108) 07/07/24 01:50 Carbon Dioxide 27.6 mmol/L (21.0-32.0) 07/07/24 01:50 Anion Gap 8 (5-15) 07/07/24 01:50 BUN 4 mg/dL (4-19) 07/07/24 01:50 Creatinine 0.39 mg/dL (0.70-1.20) L 07/07/24 01:50 Est GFR (MDRD) Non-Af 122 (>60) 07/07/24 01:50 BUN/Creatinine Ratio 11.2 RATIO (10-20) 07/07/24 01:50 Glucose 128 mg/dL (70-99) H 07/07/24 01:50 Microbiology Microbiology: Microbiology 07/06/24 16:06 Urine Catheter - Catheter Legionella Antigen - Final 07/06/24 16:06 Urine Catheter - Catheter Streptococcus pneumoniae Antigen (M - Final 07/06/24 14:55 Mucosa - Nose SARS-CoV-2, Influenza & RSV (PCR) - Final Dosing Weight Weight used for dosin.8 kg Estimated Creatinine Clearance Estimated Creatinine Clearance: 157 Goal Trough Goal Trough: 15-20 mcg/mL Pharmacy Plan for Drug Dosing Pharmacy Plan for Drug Dosing: Pharmacy Service will continue to monitor and adjust dosing as required. 1750MG LOADING DOSE GIVEN 07/07 @ 133. START 750MG Q8H AND DRAW TROUGH PRIOR TO 4TH DOSE Follow-Up Labs Follow-Up Labs: Trough: Vancomycin Date/Time Labs Ordered Labs to be done on [date and time ordered]: 07/08 @ 129
[2024-07-07 02:43] LABS: CPK Total, Creatine Kinase 21 U/L (24-195); Triglycerides 72 mg/dL
[2024-07-07] MEDS: dexMEDEtomidine 400 MCG in 0.9% Normal Saline (100mL Bag) 96 ML 8.5 MCG CONT INF (02:45)
--- NOTE | 2024-07-07 03:00 | RAD_ITS ---
PROCEDURE: ABDOMEN SINGLE VIEW (PORTABLE) 07/07/2024 REASON FOR EXAM: OG REPLACEMENT TECHNIQUE: Single view abdomen. FINDINGS: Nasogastric tube tip at the inferior edge of the film at the distal stomach with a redundant loop at the proximal stomach with an approximate 8 cm diameter. RAD/Abdomen Single View (Portable) IMPRESSION: Nasogastric tube tip at the inferior edge of the film at the distal stomach wit h a redundant loop at the proximal stomach with an approximate 8 cm diameter. Reading Location: [id number]
[2024-07-07] MEDS: buprenorphine HCL 8 MG TAB.SUBL 16 MG SL (03:40)
[2024-07-07] MEDS: Piperacil/Tazobactam 3.375 GM in 0.9% Normal Saline (50mL MB+) 50 ML IV (03:59)
[2024-07-07] MEDS: TITRATION PARAMETER CHANGE 1 EACH IV (04:00)
[2024-07-07 04:48] LABS: Hemoglobin A1c 6.5 % (<=5.6)
[2024-07-07] MEDS: Propofol 10MG/Ml 1,000 MG/100 ML Bottle 16.3 MG CONT INF (06:18)
[2024-07-07 06:46] LABS: HIV Nonreactive (Nonreactive); Magnesium 1.7 mg/dL (1.5-2.2); Phosphorus 2.5 mg/dL (2.7-4.5); Syphilis Antibodies Nonreactive (Nonreactive)
[2024-07-07] MEDS: Ipratropium/Albuterol Sulfate 3 ML AMPUL.NEB INHALATION ×4 (06:49→19:17)
[2024-07-07 07:20] LABS: Hepatitis B Surface Antigen Nonreactive (Nonreactive); Hepatitis C Antibody Nonreactive (Nonreactive); Procalcitonin 0.05 ng/mL (<=0.10)
--- NOTE | 2024-07-07 07:43 | EX.PCM.CONCC ---
Assessment & Plan Assessment/Plan (1) Acute respiratory failure with hypoxia and hypercarbia: (2) Postobstructive pneumonia: (3) Lung mass: PLAN: Plan RECOMMENDATIONS: 1. Continue assist-control mode mechanical ventilation. Wean FiO2 and PEEP as tolerated. 2. Continue current sedation regimen. 3. Continue empiric antimicrobials. 4. Continue scheduled bronchodilators and IV steroids. 5. Continue appropriate ICU prophylaxis. 6. Will proceed with bedside bronchoscopy this afternoon. 7. Unclear need for tertiary care center transfer at this time. IMPRESSIONS: 1. Acute combined respiratory failure Most likely multifactorial in etiology. The patient has suspected underlying obstructive lung disease, based upon a longstanding history of tobacco abuse, which is likely in a state of exacerbation secondary to a rhinovirus infection. In addition, CT imaging demonstrated the presence of a right hilar lung mass leading to adjacent airway compression and possible postobstructive pneumonia. Accordingly, the patient has been placed on antimicrobials, bronchodilators and steroids. Her FiO2 requirement is minimal. I do not see an overt indication for her transfer to a tertiary care facility. Will plan to proceed with bedside bronchoscopy this afternoon for airway evaluation. 2. Longstanding tobacco abuse history/polysubstance abuse Complicates care, management, recovery and prognosis. Continue supportive measures as noted above. TIME: 37 minutes of critical care time, independent of procedures, was spent addressing the patient's acute combined respiratory failure, review of all data and collaboration with the care team. HPI Consult Data Date of Consult: 07/07/24 HPI Narrative Reason for Consultation: Acute respiratory failure HPI Narrative: The patient is a 48-year-old female, with a history as outlined below, who presented to the emergency department on July 06 with complaints of shortness of breath. History pertinent to the patient's hospitalization was obtained primarily via chart review, as the patient is currently intubated and sedated. According to documentation, the patient has a history of chronic tobacco dependency and polysubstance abuse, currently on Suboxone. The patient reported multiple days of generalized malaise and shortness of breath on arrival to the emergency department. On presentation to the emergency department, the patient was documented to be afebrile but was notably tachycardic and tachypneic. Laboratory evaluation revealed a white blood cell count of 11,000. Hemoglobin was hemoconcentrated at 17.1 g/dL. Coagulation profile was within normal limits. Initial arterial blood gas was notable for a pH of 7.27 with a pCO2 of 84 and pO2 of 71. Chemistry profile was notable for a bicarbonate of 35 with normal creatinine. Lactate was within normal limits. BNP and troponin were normal. Procalcitonin was within normal limits. Urine analysis was unremarkable. Toxicology screen was positive for buprenorphine and benzodiazepines. Respiratory viral panel was positive for rhinovirus. CTA chest was negative for pulmonary embolism. However, there was evidence of a large right hilar lung mass resulting in narrowing of the bronchus intermedius with distal airway collapse. The patient was subsequently placed on antimicrobials, bronchodilators and steroids. She was admitted to the medical intensive care unit for further management. It does appear that a transfer to [facility] was initiated overnight, but due to a lack of bed availability, the patient remains in the intensive care unit. However, the exact reason/need for transfer is not entirely clear to me. At the present time, the patient is on assist-control mode mechanical ventilation with an FiO2 requirement of 30%. She did require a significant amount of sedation and remains on propofol, fentanyl and Precedex. [facility] Medical History Polysubstance abuse History of benign colon tumor Tobacco use Medical History unable to obtain Home Medications ?Medication ?Instructions ?Recorded ?Last Taken ?Type buprenorphine HCl 8 mg sublingual 16 mg sublingual DAILY 07/06/24 07/06/24 History tablet gabapentin 600 mg tablet 600 mg PO BID 07/06/24 07/06/24 History multivitamin (Daily Multi-Vitamin 1 tab PO DAILY 07/06/24 Unknown History tablet) Allergy/AdvReac Type Severity Reaction Status Date / Time Latex, Natural Rubber Allergy Mild Hives Verified 07/06/24 23:12 Family History (Updated 07/07/24 @ 00:[address] Mila Hartman MD) Mother COPD (chronic obstructive pulmonary disease) Heart disease Father Alcoholism COPD (chronic obstructive pulmonary disease) Surgical History History of hysterectomy H/O exploratory laparotomy Social History (Updated 07/07/24 @ 00:[address] Mila Hartman MD) household members: spouse Smoking Status: Current every day smoker tobacco type: cigarettes Smoking packs per day: 1.5 Smoking cigarettes per day: 30.0 alcohol intake: never substance use type: other details: History of previous Xanax, Percocets, Subutex abuse. Possible ongoing use. ROS Review of Systems ROS Unobtainable: due to endotracheal tube Physical Exam Const Constitutional Narrative: Intubated, sedated and mechanically ventilated. No ventilator dyssynchrony. HEENT normocephalic and head/scalp atraumatic Mouth: endotracheal tube in place and OG tube in place Eyes PERRL, EOMs intact bilaterally and conjunctivae normal Neck supple General: trachea midline Chest inspection of chest normal Resp Auscultation: wheezes and diminished lung sounds Cardio regular rate and regular rhythm GI normal to inspection, nondistended, normoactive bowel sounds Extremity no clubbing, cyanosis or edema Skin no rashes or lesions noted Neuro Sensorium / Orientation: sedated on vent Lab / Micro Data 07/07/24 01:50 07/07/24 01:50 Labs: Laboratory Results - last 24 hr 07/06/24 14:56: WBC 11.6 H, RBC 6.33 H, Hgb 17.1 H, Hct 55.6 H, MCV 87.8, MCH 27.0, MCHC 30.8 L, RDW Std Deviation 59.5 H, RDW Coeff of Myla 19.8 H, Plt Count 287, MPV 10.1, Immature Gran % (Auto) 0.400, Neut % (Auto) 79.9 H, Lymph % (Auto) 14.7 L, [place] % (Auto) 4.5, Eos % (Auto) 0.0, Baso % (Auto) 0.5, Absolute Neuts (auto) 9.3 H, Absolute Lymphs (auto) 1.71, Nucleated RBC % 0, PT Cancelled, INR Cancelled, APTT Cancelled, Sodium 139, Potassium 4.4, Chloride 95 L, Carbon Dioxide 34.7 H, Anion Gap 9, BUN 3 L, Creatinine 0.48 L, Estim Creat Clear Calc 127.57, Est GFR (MDRD) Non-Af 116, BUN/Creatinine Ratio 5.7 L, Glucose 141 H, Lactic Acid < 1.0, Calcium 9.2, Total Bilirubin 0.56, AST 19, ALT 13, Alkaline Phosphatase 119 H, Troponin T High Sens 7 07/06/24 14:56: Troponin T High Sens Cancelled, NT pro BNP II 406 07/06/24 14:56: NT pro BNP II Cancelled, Total Protein 7.5, Albumin 3.5, Globulin 4.0, Albumin/Globulin Ratio 0.9 07/06/24 16:02: U Random Total Protein 14.1 H, Urine Opiates Screen NEGATIVE, U Buprenorphine Qual PRESUMPTIVE POSITIVE, Ur Oxycodone Screen NEGATIVE, Urine Methadone Screen NEGATIVE, Urine Fentanyl Screen NEGATIVE, Ur Barbiturates Screen NEGATIVE, Ur Phencyclidine Scrn NEGATIVE, Ur Amphetamines Screen NEGATIVE, U Benzodiazepines Scrn PRESUMPTIVE POSITIVE, Urine Cocaine Screen NEGATIVE, U Cannabinoids Screen NEGATIVE 07/06/24 16:06: PT 14.1, INR 1.1, APTT 28.5, Urine Color Yellow, Urine Clarity Sl. Cloudy, Urine pH 7.0, Ur Specific [place] 1.005, Urine Protein TNP, Urine Glucose (UA) Normal, Urine Ketones Negative, Urine Occult Blood Negative, Urine Nitrite Negative, Urine Bilirubin Negative, Urine Urobilinogen 4 H, Ur Leukocyte Esterase Negative, Urine RBC 0-5 SEEN, Urine WBC 0-5 SEEN, Ur Squamous Epith Cells 0-5 SEEN, Amorphous Sediment 1+, Urine Bacteria 0 SEEN, Urine Mucus 0 SEEN 07/06/24 17:01: Phosphorus 2.5 L, Magnesium 1.7, Troponin T Hi Sens 2 Hr < 6, Procalcitonin 0.05, Syphilis Total Ab Nonreactive, Hep Bs Antigen Nonreactive, Hepatitis C Antibody Nonreactive, HIV 1&2 Antibody Nonreactive 07/06/24 19:20: Total Creatine Kinase 22 L, Troponin T Hi Sens 4Hr 8, Triglycerides 63 07/07/24 01:50: WBC 8.5, RBC 5.33, Hgb 14.2, Hct 46.0, MCV 86.3, MCH 26.6 L, MCHC 30.9 L, RDW Std Deviation 58.2 H, RDW Coeff of Myla 19.1 H, Plt Count 243, MPV 9.4, Immature Gran % (Auto) 0.500, Neut % (Auto) 79.2 H, Lymph % (Auto) 16.5 L, [place] % (Auto) 3.6, Eos % (Auto) 0.0, Baso % (Auto) 0.2, Absolute Neuts (auto) 6.7, Absolute Lymphs (auto) 1.40, Nucleated RBC % 0, Sodium 140, Potassium 4.4, Chloride 104, Carbon Dioxide 27.6, Anion Gap 8, BUN 4, Creatinine 0.39 L, Estim Creat Clear Calc 157.01, Est GFR (MDRD) Non-Af 122, BUN/Creatinine Ratio 11.2, Glucose 128 H, Hemoglobin A1c 6.5 H, Calcium 8.2, Total Bilirubin 0.37, AST 22, ALT 13, Alkaline Phosphatase 85, Total Creatine Kinase 21 L, Total Protein 5.5 L, Albumin 2.6 L, Globulin 2.9, Albumin/Globulin Ratio 0.9, Triglycerides 72, Hep Bs Antibody Nonreactive Micro: Microbiology 07/07/24 01:20 Mucosa - Nasopharyngeal Respiratory Panel (PCR) - Final Rhinovirus 07/07/24 01:50 Nasal Secretion MRSA (PCR) - Final 07/06/24 16:06 Urine Catheter - Catheter Legionella Antigen - Final 07/06/24 16:06 Urine Catheter - Catheter Streptococcus pneumoniae Antigen (M - Final 07/06/24 14:55 Mucosa - Nose SARS-CoV-2, Influenza & RSV (PCR) - Final ABG Data ABG results: ABG 07/06/24 07/06/24 07/07/24 17:27 20:06 01:31 Specimen Type ART ART ART Sample Site R Radial R Radial L Radial pH 7.27 L 7.26 L 7.47 H Bicarbonate Actual 38.5 H 40.3 H 31.9 H Total CO2 41 43 33 Base Excess 12 H 13 H 8 H O2 Saturation 90 L 88 L 98 O2 % 5.0 45.0 40.0 ABG pCO2 84.2 H* 90.2 H* 44.2 ABG pO2 71 L 67 L 106 H Morgan Test Positive Positive Positive Respiration Rate 12 16 O2 Delivery Device Cannula BiPAP Adult Vent Vent Mode Not entered Not entered AC Tidal Volume 450.0 POC PEEP 6 5 Peak Inspir Pressure 12 Crit Call To/Read Back Yes Yes Imaging Radiology Impression Chest X-Ray 07/06/24 15:20 IMPRESSION: 1. Central vascular/bronchovascular prominence could be technical or reflect early vascular congestion/trace interstitial edema. Atypical pneumonia/pneumonitis could appear similarly. 2. Suspected trace LEFT pleural effusion. 3. Additional description as above. Reading Location: [facility] Chest CTA 07/06/24 18:10 IMPRESSION: 1. 3.7 x 1.9 cm right hilar mass/adenopathy with bronchus intermedius narrowing and resultant right middle lobe collapsed. Findings concerning for primary lung malignancy,/malignant adenopathy. 2. Right middle lobe consolidative, ground-glass opacities and interlobular septal thickening, likely secondary to postobstructive pneumonitis. However, lymphangitic carcinomatosis can not be excluded. 3. Multiple prominent-mildly enlarged hilar and mediastinal likely metastatic lymph nodes. 4. No evidence of pulmonary embolism. Reading Location: [facility] Chest X-Ray 07/06/24 21:10 IMPRESSION: Interval placement of endotracheal tube with the tip above the pema. Interval placement of nasogastric tube with the tip below the diaphragm. No active pulmonary disease. Reading Location: [facility] X-Ray 07/07/24 03:00 IMPRESSION: Nasogastric tube tip at the inferior edge of the film at the distal stomach with a redundant loop at the proximal stomach with an approximate 8 cm diameter. Reading Location: [facility] Charges/Coding Procedures Hospitalists Procedures: 23195 Critical Care 1st Hr
[2024-07-07 07:54] LABS: Allen Test Positive; Base Excess 9 mmol/L (-2 to +2); Bicarbonate 34.7 mmol/L (22-26); Blood Gas Specimen Type ART; Mode AC; O2 Delivery Device ET Tube; PEEP 5; PO2 95 mmHG (75-100); RR 16; SITE R Radial; SO2 97 % (95-99); Total Carbon Dioxide 37 mmol/L; pCO2 63.8 mmHg (35-45); pH 7.34 (7.35-7.45)
--- NOTE | 2024-07-07 08:16 | PCM.PN.HOSP ---
Reason for Visit Reason for Visit: Diagnoses Pneumonia, unspecified organism (07/06/24) Acute respiratory failure with hypoxia (07/06/24) Acute respiratory failure with hypercapnia (07/06/24) Other nonspecific abnormal finding of lung field (07/06/24) Subjective Subjective Patient is a 48-year-old lady with history of polysubstance dependence who was admitted with progressive shortness of breath imaging studies obtained on admission did show 3.7 x 1.9 cm right hilar mass/adenopathy with bronchus intermedius narrowing and resultant right middle lobe collapsed. Findings concerning for primary lung malignancy,/malignant adenopathy. Was also found to have Right middle lobe consolidative, ground-glass opacities and interlobular septal thickening, likely secondary to postobstructive pneumonitis. Patient was intubated in the emergency department admitted to the intensive care unit Objective Data Objective Data Vital Signs: Vital Signs Temp Pulse Resp BP Pulse Ox O2 Del Method O2 Flow Rate 99.2 F H 76 16 104/68 91 Mechanical Ventilator 15 07/07/24 07:00 07/07/24 07:00 07/07/24 07:00 07/07/24 07:00 07/07/24 07:00 07/07/24 07:00 07/06/24 20:30 FiO2 30 07/07/24 07:00 Oxygen Flow Rate (L/min) 15 Oxygen Delivery Method Mechanical Ventilator Weight: 67.8 kg Body Mass Index (BMI) 24.9 Intake & Output: Intake and Output for Last 24 Hours 07/05/24 07/06/24 07/07/24 23:59 23:59 23:59 Intake Total 2863.34 / 2863.34 1312.07 / 1312.07 Output Total 750 / 750 Balance 2863.34 / 2863.34 562.07 / 562.07 Lab / Micro Data 07/07/24 01:50 07/07/24 01:50 Labs: Laboratory Results - last 24 hr 07/06/24 14:56: WBC 11.6 H, RBC 6.33 H, Hgb 17.1 H, Hct 55.6 H, MCV 87.8, MCH 27.0, MCHC 30.8 L, RDW Std Deviation 59.5 H, RDW Coeff of Myla 19.8 H, Plt Count 287, MPV 10.1, Immature Gran % (Auto) 0.400, Neut % (Auto) 79.9 H, Lymph % (Auto) 14.7 L, [place] % (Auto) 4.5, Eos % (Auto) 0.0, Baso % (Auto) 0.5, Absolute Neuts (auto) 9.3 H, Absolute Lymphs (auto) 1.71, Nucleated RBC % 0, PT Cancelled, INR Cancelled, APTT Cancelled, Sodium 139, Potassium 4.4, Chloride 95 L, Carbon Dioxide 34.7 H, Anion Gap 9, BUN 3 L, Creatinine 0.48 L, Estim Creat Clear Calc 127.57, Est GFR (MDRD) Non-Af 116, BUN/Creatinine Ratio 5.7 L, Glucose 141 H, Lactic Acid < 1.0, Calcium 9.2, Total Bilirubin 0.56, AST 19, ALT 13, Alkaline Phosphatase 119 H, Troponin T High Sens 7 07/06/24 14:56: Troponin T High Sens Cancelled, NT pro BNP II 406 07/06/24 14:56: NT pro BNP II Cancelled, Total Protein 7.5, Albumin 3.5, Globulin 4.0, Albumin/Globulin Ratio 0.9 07/06/24 16:02: U Random Total Protein 14.1 H, Urine Opiates Screen NEGATIVE, U Buprenorphine Qual PRESUMPTIVE POSITIVE, Ur Oxycodone Screen NEGATIVE, Urine Methadone Screen NEGATIVE, Urine Fentanyl Screen NEGATIVE, Ur Barbiturates Screen NEGATIVE, Ur Phencyclidine Scrn NEGATIVE, Ur Amphetamines Screen NEGATIVE, U Benzodiazepines Scrn PRESUMPTIVE POSITIVE, Urine Cocaine Screen NEGATIVE, U Cannabinoids Screen NEGATIVE 07/06/24 16:06: PT 14.1, INR 1.1, APTT 28.5, Urine Color Yellow, Urine Clarity Sl. Cloudy, Urine pH 7.0, Ur Specific [place] 1.005, Urine Protein TNP, Urine Glucose (UA) Normal, Urine Ketones Negative, Urine Occult Blood Negative, Urine Nitrite Negative, Urine Bilirubin Negative, Urine Urobilinogen 4 H, Ur Leukocyte Esterase Negative, Urine RBC 0-5 SEEN, Urine WBC 0-5 SEEN, Ur Squamous Epith Cells 0-5 SEEN, Amorphous Sediment 1+, Urine Bacteria 0 SEEN, Urine Mucus 0 SEEN 07/06/24 17:01: Phosphorus 2.5 L, Magnesium 1.7, Troponin T Hi Sens 2 Hr < 6, Procalcitonin 0.05, Syphilis Total Ab Nonreactive, Hep Bs Antigen Nonreactive, Hepatitis C Antibody Nonreactive, HIV 1&2 Antibody Nonreactive 07/06/24 19:20: Total Creatine Kinase 22 L, Troponin T Hi Sens 4Hr 8, Triglycerides 63 07/07/24 01:50: WBC 8.5, RBC 5.33, Hgb 14.2, Hct 46.0, MCV 86.3, MCH 26.6 L, MCHC 30.9 L, RDW Std Deviation 58.2 H, RDW Coeff of Myla 19.1 H, Plt Count 243, MPV 9.4, Immature Gran % (Auto) 0.500, Neut % (Auto) 79.2 H, Lymph % (Auto) 16.5 L, [place] % (Auto) 3.6, Eos % (Auto) 0.0, Baso % (Auto) 0.2, Absolute Neuts (auto) 6.7, Absolute Lymphs (auto) 1.40, Nucleated RBC % 0, Sodium 140, Potassium 4.4, Chloride 104, Carbon Dioxide 27.6, Anion Gap 8, BUN 4, Creatinine 0.39 L, Estim Creat Clear Calc 157.01, Est GFR (MDRD) Non-Af 122, BUN/Creatinine Ratio 11.2, Glucose 128 H, Hemoglobin A1c 6.5 H, Calcium 8.2, Total Bilirubin 0.37, AST 22, ALT 13, Alkaline Phosphatase 85, Total Creatine Kinase 21 L, Total Protein 5.5 L, Albumin 2.6 L, Globulin 2.9, Albumin/Globulin Ratio 0.9, Triglycerides 72, Hep Bs Antibody Nonreactive Micro: Microbiology 07/07/24 01:20 Mucosa - Nasopharyngeal Respiratory Panel (PCR) - Final Rhinovirus 07/07/24 01:50 Nasal Secretion MRSA (PCR) - Final 07/06/24 16:06 Urine Catheter - Catheter Legionella Antigen - Final 07/06/24 16:06 Urine Catheter - Catheter Streptococcus pneumoniae Antigen (M - Final 07/06/24 14:55 Mucosa - Nose SARS-CoV-2, Influenza & RSV (PCR) - Final ABG Data ABG results: ABG 07/06/24 07/06/24 07/06/24 17:27 20:06 22:25 Specimen Type ART ART ART Sample Site R Radial R Radial R Radial pH 7.27 L 7.26 L 7.34 L Bicarbonate Actual 38.5 H 40.3 H 34.7 H Total CO2 41 43 37 Base Excess 12 H 13 H 9 H O2 Saturation 90 L 88 L 97 O2 % 5.0 45.0 50.0 ABG pCO2 84.2 H* 90.2 H* 63.8 H ABG pO2 71 L 67 L 95 Morgan Test Positive Positive Positive Respiration Rate 12 16 O2 Delivery Device Cannula BiPAP ET Tube Vent Mode Not entered Not entered AC Tidal Volume 450.0 POC PEEP 6 5 Peak Inspir Pressure 12 Crit Call To/Read Back Yes Yes 07/07/24 01:31 Specimen Type ART Sample Site L Radial pH 7.47 H Bicarbonate Actual 31.9 H Total CO2 33 Base Excess 8 H O2 Saturation 98 O2 % 40.0 ABG pCO2 44.2 ABG pO2 106 H Morgan Test Positive Respiration Rate 16 O2 Delivery Device Adult Vent Vent Mode AC Tidal Volume 450.0 POC PEEP 5 Peak Inspir Pressure Crit Call To/Read Back Radiography Diagnostic Testing: Radiology Impression Chest X-Ray 07/06/24 15:20 IMPRESSION: 1. Central vascular/bronchovascular prominence could be technical or reflect early vascular congestion/trace interstitial edema. Atypical pneumonia/pneumonitis could appear similarly. 2. Suspected trace LEFT pleural effusion. 3. Additional description as above. Reading Location: [id number] Chest CTA 07/06/24 18:10 IMPRESSION: 1. 3.7 x 1.9 cm right hilar mass/adenopathy with bronchus intermedius narrowing and resultant right middle lobe collapsed. Findings concerning for primary lung malignancy,/malignant adenopathy. 2. Right middle lobe consolidative, ground-glass opacities and interlobular septal thickening, likely secondary to postobstructive pneumonitis. However, lymphangitic carcinomatosis can not be excluded. 3. Multiple prominent-mildly enlarged hilar and mediastinal likely metastatic lymph nodes. 4. No evidence of pulmonary embolism. Reading Location: [facility] Chest X-Ray 07/06/24 21:10 IMPRESSION: Interval placement of endotracheal tube with the tip above the pema. Interval placement of nasogastric tube with the tip below the diaphragm. No active pulmonary disease. Reading Location: [id number] X-Ray 07/07/24 03:00 IMPRESSION: Nasogastric tube tip at the inferior edge of the film at the distal stomach with a redundant loop at the proximal stomach with an approximate 8 cm diameter. Reading Location: [id number] Physical Exam Narrative GENERAL: Sedated on the vent HEENT: ET tube in place EYES; Anicteric, Normal Conjunctiva NECK; supple, normal thyroid, RESPIRATORY: Diminished to auscultation CARDIOVASCULAR: Regular S1 S2, GI: soft, normoactive bowel sounds, : No Renal angle tenderness; EXTREMITIES: No edema, no clubbing, MUSCULOSKELETAL: no muscle wasting NEURO: Sedated on the vent SKIN: No Rash Assessment & Plan Assessment/Plan (1) Acute respiratory failure with hypoxia and hypercarbia: (2) Lung mass: (3) Postobstructive pneumonia: PLAN: Plan Patient is a 48-year-old lady with history of polysubstance dependence who was admitted with progressive shortness of breath 1. Acute hypoxic respiratory failure ? Imaging studies obtained on admission did show 3.7 x 1.9 cm right hilar mass/adenopathy with bronchus intermedius narrowing and resultant right middle lobe collapsed. Findings concerning for primary lung malignancy,/malignant adenopathy. Was also found to have Right middle lobe consolidative, ground-glass opacities and interlobular septal thickening, likely secondary to postobstructive pneumonitis. Patient was intubated in the emergency department admitted to the intensive care unit 2. Postobstructive pneumonia ? Patient was started on vancomycin as well as Zosyn. Consult placed to assurance senior manager. Case discussed with Dr. Morales plans for patient to undergo bronchoscopy 3. History of polysubstance dependence ? UDS obtained on admission did show presumptive buprenorphine as well as benzos. 4. Tobacco dependence ? 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 Hypophosphatemia ? Corrected via parenteral route repeat phosphate levels ordered in a.m. Also ordered magnesium level 6. Hyperglycemia with hemoglobin A1c of 6.5 ? Will monitor glucose levels with Accu-Cheks AC and at bedtime 7. DVT prophylaxis ? On enoxaparin Time spent in the patient's overall evaluation,decision-making process, review of diagnostic data, adjustment of management, discussion with other providers, nursing nursing and ancillary staff involved in patient's care documentation, 52 Minutes Charges/Coding Visit Charges Inpatient E&M: 71016 Subs Hosp L3
[2024-07-07] MEDS: Enoxaparin 40 MG/0.4 ML Syringe SC (09:37)
[2024-07-07] MEDS: Chlorhexidine 15 ML PO ×2 (09:37→21:13)
[2024-07-07] MEDS: Vancomycin HCl 750 MG in 0.9% Normal Saline (250mL Bag) 250 ML 250 MG IV ×2 (10:02→16:55)
--- NOTE | 2024-07-07 11:39 | CHAPLAIN ---
Type of Pastoral Visit _x__ Initial Visit ___ Follow-up Visit ___ On-call Visit ___ General Patient Visit ___ Spiritual Assessment ___ Family Conference ___ Bereavement ___ Rapid Response ___ Code Blue ___ Other (describe below) Pastoral Care Referral From ___ Patient ___ Family _x__ Nurse ___ Physician ___ Biofuels Technology Manager ___ Third Grade Teacher ___ Other (describe below) Sacrament/Intervention _x__ Active listening ___ Anointing ___ Methodist ___ Bereavement ___ Communion ___ Tricia exploration ___ ___ Life review _x__ Prayer ___ Reconciliation ___ Sacrament of Sick _x__ Supportive presence ___ Wedding ___ Other (describe below) Pastoral Comments Nurse recommended this visit to spouse of patient; pt was intubated earlier today; pt is to be transferred to another hospital when a bed becomes available; spouse and son are in the room and willing to talk and have prayers spoken; offered support and asked about their family and who will be going to the [facility] for further support and encouragement; pt is of the [employer] tricia and prayers were given;
[2024-07-07] MEDS: Propofol 10MG/Ml 1,000 MG/100 ML Bottle 18.3 MG CONT INF ×3 (11:58→21:46)
[2024-07-07] MEDS: dexMEDEtomidine 400 MCG in 0.9% Normal Saline (100mL Bag) 96 ML 10.2 MCG CONT INF ×2 (11:58→21:46)
[2024-07-07] MEDS: Succinylcholine Chloride 200 MG/10 ML SYRINGE 100 MG IV (13:09)
[2024-07-07] MEDS: Lidocaine Jelly 2% 20 ML Syringe (URO-JET) 1 APPLIC ×2 (13:22→13:32)
--- NOTE | 2024-07-07 13:25 | FLU_PTH ---
PATIENT: SAI CHANEL LOC: [facility] U#:[id number] AGE/SX: 48/F ROOM: [facility] RE07/06/[address]: Dr. Radames Thomas MD : 1975 BED: 1 DIS: 07/14/2024 SPEC #: [id number] RECD: 07/08/24 09:28 STATUS: MARIA VICTORIA REQ #: [id number] PERI: 07/07/24 13:[address]: Víctor Morales DEPT: CYTOLOGY RECD BY: Sabina Pizano ENTERED: 07/08/24 09:28 SP TYPE: Fluid OTHR DR: MD Dr. Felton Dolan MD Dr. Autumn L White, MD Dr. Bruce Arthur, MD Dr. David Kittoe, MD Dr. David P Myers, MD Dr. Edward Matheis, MD Dr. Gautam Baskaran, MD Dr. Yordanos Habtegebriel, MD Dr. Hemant Dand, MD Dr. Jose Ochoa, MD Dr. Justin Wong, MD Dr. Kimber Foust, MD Dr. Lamia Aljundi, MD Dr. Marisa Magana, MD Dr. Pritam Ghosh, MD Dr. Pavan Irukulla, MD Dr. Saad Farooqi, MD Dr. Sukhdeep Dhesi, MD Dr. Lorraine Trujillo Dr., MD Dr. Tyler Bender, DO Dr. Adrian Pereira, DO MD Dr. Valerio Aguayo MD Dr. William Haden, MD No Primary Care Phys Selene Gonzalez, INTERIOR DECORATOR [employer]-C Alma Santillan NP-C Tissues: Bronchus of right middle lobe Procedures: Special Stain Group II Special Stain Group I Surgery Specimen Level IV AFB Stain (control) GMS Stain (control) Cytospin Fluid HEADER OPERATION: Bronchoscopy PRE-OP DIAGNOSIS: Abnormal CT scan of chest TISSUE SUBMITTED: A- Right middle lobe fluid for cytology DIAGNOSIS CYTOLOGY A. Right middle lobe fluid: * No malignant cells are identified (See note) Note: The AFB and GMS stains are negative CYTOLOGY STUDY Slides are reviewed. CYTOLOGY GROSS A. Received is 15 ml of whiteish-albright cloudy - mucoidy fluid labeled with the patient's name and and designated per the requisition as Right middle lobe fluid. Submitted for cytology and cell block preparation. Mr 07/08/2024 CPT: [id number]
[2024-07-07] MEDS: Piperacil/Tazobactam 3.375 GM/50 ML ML IV ×2 (13:27→21:05)
--- NOTE | 2024-07-07 13:27 | OP.BRONCH_ITS ---
Patient Name: Ilda Rsuso Procedure Date: 07/07/2024 1:03 PM Date of : 1975 Age: 48 Procedure: Bronchoscopy Indications: Abnormal CT scan of chest Providers: Víctor Morales MD Referring MD: Cy Ashraf Do Medicines: Propofol, Fentanyl, Precedex Complications: No immediate complications Procedure: Pre-Anesthesia Assessment: - A History and Physical has been performed. Patient meds and allergies have been reviewed. The patient is unable to give consent secondary to the patient's altered mental status. The risks and benefits of the procedure and the sedation options and risks were discussed with the patient's spouse. All questions were answered and informed consent was obtained. Patient identification and proposed procedure were verified prior to the procedure by the physician and the nurse in the procedure room. Mental Status Examination: sedated. Airway Examination: orotracheal intubation. Respiratory Examination: poor air movement. CV Examination: normal. ASA Grade Assessment: II - A patient with mild systemic disease. After reviewing the risks and benefits, the patient was deemed in satisfactory condition to undergo the procedure. The anesthesia plan was to use deep sedation / analgesia. Immediately prior to administration of medications, the patient was re-assessed for adequacy to receive sedatives. The heart rate, respiratory rate, oxygen saturations, blood pressure, adequacy of pulmonary ventilation, and response to care were monitored throughout the procedure. The physical status of the patient was re-assessed after the procedure. After I obtained informed consent, the scope was passed under direct vision. Throughout the procedure, the patient's blood pressure, pulse, and oxygen saturations were monitored continuously. The bronchoscope was introduced through the mouth, via the endotracheal tube and advanced to the tracheobronchial tree. The procedure was accomplished without difficulty. The patient tolerated the procedure well. Findings: Right Lung Abnormalities: Copious, mucopurulent, tenacious secretions were found throughout the right tracheobronchial tree. They were partially obstructing the airway. Therapeutic suctioning was performed. Mucus and mucus plugs were removed from the airway and the airway was cleared. The bronchoscope was advanced until wedged at the desired location for bronchoalveolar lavage. BAL was performed in the right middle lobe of the lung and sent for cell count, bacterial culture, viral smears & culture, and fungal & AFB analysis and cytology. 40 mL of fluid were instilled. 20 mL were returned. The return was mucopurulent. Narrowing was found in the right middle lobe. The narrowing appears to be from an extrinsic mass. The airway is moderately narrowed. The lesion was successfully traversed. Impression: - Abnormal CT scan of chest - Copious, mucopurulent, tenacious secretions were found throughout the right tracheobronchial tree. - Therapeutic suctioning was performed. - Bronchoalveolar lavage was performed. - A narrowing was found in the right middle lobe. The narrowing appears to be from an extrinsic mass. Recommendation: - Await BAL results. Procedure Code(s): --- Professional --- 98027, Bronchoscopy, rigid or flexible, including fluoroscopic guidance, when performed; with therapeutic aspiration of tracheobronchial tree, initial 78900, Bronchoscopy, rigid or flexible, including fluoroscopic guidance, when performed; with bronchial alveolar lavage Diagnosis Code(s): --- Professional --- R93.89, Abnormal findings on diagnostic imaging of other specified body structures R09.89, Other specified symptoms and signs involving the circulatory and respiratory systems J98.4, Other disorders of lung CPT copyright 2021 [employer]. All rights reserved. The codes documented in this report are preliminary and upon real estate marketing coordinator review may be revised to meet current compliance requirements. DO Víctor Regan MD 07/07/2024 1:26:46 PM This report has been signed electronically. Number of Addenda: 0 Note Initiated On: 07/07/2024 1:03 PM
[2024-07-07 13:49] LABS: Cytology, Body Fluid / CSF SEE PATHOLOGY REPORT
[2024-07-07 19:19] LABS: Appearance/Body Fluid TURBID; Color/Body Fluid LT YEL; Source- Body Fluid BRONCHIAL LAVAGE
[2024-07-07 19:20] LABS: Red Cell Count/Body Fluid 2625 /mm3; White Blood Count/Body Fluid 8970 /mm3
[2024-07-07 22:23] LABS: Body Fluid QC Type(s) 0501:BF1Q
[2024-07-07 23:05] LABS: Lymphocytes 13 %; Neutrophil (Segs) 77 %
[2024-07-07 23:06] LABS: Other Cell Type/BF 10 %
[2024-07-08] VITALS (35 sets, daily range): BP systolic 111–149; BP diastolic 65–88; PULSE 53–90; RESP 16–23; TEMP 36.4–37; O2SAT 89–98; BMI 25.8
[2024-07-08] MEDS: Propofol 10MG/Ml 1,000 MG/100 ML Bottle 16.3 MG CONT INF (02:02)
[2024-07-08] MEDS: 0.9% Saline Lock 10 ML Syringe IV ×3 (02:04→21:16)
[2024-07-08 03:11] LABS: Vancomycin, Trough Level 11.3 ug/mL (5.0-15.0)
[2024-07-08] MEDS: Vancomycin IV 1,000 MG/200 ML BAG 200 MG IV ×3 (03:24→18:52)
[2024-07-08] MEDS: fentaNYL drip 100 ML 17.5 MCG CONT INF (04:55)
[2024-07-08] MEDS: Piperacil/Tazobactam 3.375 GM/50 ML ML IV ×3 (05:05→21:21)
--- NOTE | 2024-07-08 05:43 | PHA.PHARE_ITS ---
Consult Antibiotic Management Pharmacy has been consulted to manage selected antibiotic: Vancomycin Type of Intervention Type of Consult: Follow-up Labs Labs: Sodium 140 mmol/L (133-145) 07/07/24 01:50 Potassium 4.4 mmol/L (3.3-5.1) 07/07/24 01:50 Chloride 104 mmol/L (98-108) 07/07/24 01:50 Carbon Dioxide 27.6 mmol/L (21.0-32.0) 07/07/24 01:50 Anion Gap 8 (5-15) 07/07/24 01:50 BUN 4 mg/dL (4-19) 07/07/24 01:50 Creatinine 0.39 mg/dL (0.70-1.20) L 07/07/24 01:50 Est GFR (MDRD) Non-Af 122 (>60) 07/07/24 01:50 BUN/Creatinine Ratio 11.2 RATIO (10-20) 07/07/24 01:50 Glucose 128 mg/dL (70-99) H 07/07/24 01:50 Vancomycin Trough 11.3 ug/mL (5.0-15.0) 07/08/24 01:25 Microbiology Microbiology: Microbiology 07/06/24 16:06 Urine, Clean Catch Urine Culture - Preliminary GNR lactose computer technical support specialist 07/06/24 21:00 Sputum, Induced/Lukens Gram Stain - Final 07/07/24 01:20 Mucosa - Nasopharyngeal Respiratory Panel (PCR) - Final Rhinovirus 07/07/24 01:50 Nasal Secretion MRSA (PCR) - Final 07/06/24 16:06 Urine Catheter - Catheter Legionella Antigen - Final 07/06/24 16:06 Urine Catheter - Catheter Streptococcus pneumoniae Antigen (M - Final 07/06/24 14:55 Mucosa - Nose SARS-CoV-2, Influenza & RSV (PCR) - Final Goal Trough Goal Trough: 15-20 mcg/mL Pharmacy Plan for Drug Dosing Pharmacy Plan for Drug Dosing: Pharmacy Service will continue to monitor and adjust dosing as required. TROUGH 11.3 @ 8.35 HOURS. INCREASE TO 1GM Q8H AND FOLLOW UP TROUGH PRIOR TO 4TH DOSE Follow-Up Labs Follow-Up Labs: Trough: Vancomycin Date/Time Labs Ordered Labs to be done on [date and time ordered]: 07/09 @ 6538
[2024-07-08] MEDS: Ipratropium/Albuterol Sulfate 3 ML AMPUL.NEB INHALATION ×5 (06:40→23:10)
--- NOTE | 2024-07-08 07:17 | PN.HOSP_ITS ---
Reason for Visit Reason for Visit: Diagnoses Pneumonia, unspecified organism (07/06/24) Acute respiratory failure with hypoxia (07/06/24) Acute respiratory failure with hypercapnia (07/06/24) Other nonspecific abnormal finding of lung field (07/06/24) Subjective Subjective Patient transfer was canceled the day prior. Underwent bronchoscopy with bronchial lavage. Patient remains on the vent. Per nursing staff patient was reported to be hypoxic during her weaning and continues to experience copious amount of secretions from her endotracheal tube Objective Data Objective Data Vital Signs: Vital Signs Temp Pulse Resp BP Pulse Ox O2 Del Method O2 Flow Rate 98.2 F 71 18 122/73 H 94 Mechanical Ventilator 15 07/08/24 07:00 07/08/24 07:00 07/08/24 07:00 07/08/24 07:00 07/08/24 07:00 07/08/24 07:00 07/06/24 20:30 FiO2 35 07/08/24 07:00 Oxygen Flow Rate (L/min) 15 Oxygen Delivery Method Mechanical Ventilator Weight: 70.4 kg Body Mass Index (BMI) 25.8 Intake & Output: Intake and Output for Last 24 Hours 07/06/24 07/07/24 07/08/24 23:59 23:59 23:59 Intake Total 2863.34 / 2863.34 4002.34 / 4050.84 592.67 / 592.67 Output Total 1460 / 1460 500 / 500 Balance 2863.34 / 2863.34 2542.34 / 2590.84 92.67 / 92.67 Lab / Micro Data 07/07/24 01:50 07/07/24 01:50 Labs: Laboratory Results - last 24 hr 07/06/24 17:01: Procalcitonin 0.05, Hep Bs Antigen Nonreactive, Hepatitis C Antibody Nonreactive 07/07/24 : Fluid Source BRONCHIAL LAVAGE, Fluid Color LT YEL, Fluid Appearance TURBID, Fluid WBC 8970, Fluid RBC 2625, Fluid Tot Cell Count TNP, Fluid Neutrophils 77, Fluid Lymphocytes 13, Fluid Other Cells 10, Fl Pathologist Comment May follow, Fluid Comment 2 Not Reportable 07/08/24 01:25: Vancomycin Trough 11.3 Micro: Microbiology 07/06/24 16:06 Urine, Clean Catch Urine Culture - Preliminary GNR lactose enrollment processor 07/06/24 21:00 Sputum, Induced/Lukens Gram Stain - Final 07/07/24 01:20 Mucosa - Nasopharyngeal Respiratory Panel (PCR) - Final Rhinovirus 07/07/24 01:50 Nasal Secretion MRSA (PCR) - Final 07/06/24 16:06 Urine Catheter - Catheter Legionella Antigen - Final 07/06/24 16:06 Urine Catheter - Catheter Streptococcus pneumoniae Antigen (M - Final 07/06/24 14:55 Mucosa - Nose SARS-CoV-2, Influenza & RSV (PCR) - Final ABG Data ABG results: ABG 07/06/24 22:25 Specimen Type ART Sample Site R Radial pH 7.34 L Bicarbonate Actual 34.7 H Total CO2 37 Base Excess 9 H O2 Saturation 97 O2 % 50.0 ABG pCO2 63.8 H ABG pO2 95 Morgan Test Positive Respiration Rate 16 O2 Delivery Device ET Tube Vent Mode AC Tidal Volume 450.0 POC PEEP 5 Physical Exam Narrative GENERAL: Sedated on the vent HEENT: ET tube in place EYES; Anicteric, Normal Conjunctiva NECK; supple, normal thyroid, RESPIRATORY: Diminished to auscultation CARDIOVASCULAR: Regular S1 S2, GI: soft, normoactive bowel sounds, : No Renal angle tenderness; EXTREMITIES: No edema, no clubbing, MUSCULOSKELETAL: no muscle wasting NEURO: Sedated on the vent SKIN: No Rash Assessment & Plan Assessment/Plan (1) Acute respiratory failure with hypoxia and hypercarbia: (2) Lung mass: (3) Postobstructive pneumonia: PLAN: Plan Patient is a 48-year-old lady with history of polysubstance dependence who was admitted with progressive shortness of breath 1. Acute hypoxic respiratory failure ? Imaging studies obtained on admission did show 3.7 x 1.9 cm right hilar mass/adenopathy with bronchus intermedius narrowing and resultant right middle lobe collapsed. Findings concerning for primary lung malignancy,/malignant adenopathy. Was also found to have Right middle lobe consolidative, ground- glass opacities and interlobular septal thickening, likely secondary to postobstructive pneumonitis. Patient was intubated in the emergency department admitted to the intensive care unit 2. Postobstructive pneumonia ? Patient was started on vancomycin as well as Zosyn. Consult placed to forest fire control officer. Case discussed with Dr. Morales plans for patient to undergo bronchoscopy ? 07/08/2024;Underwent bronchoscopy with bronchial lavage. Patient remains on the vent. Per nursing staff patient was reported to be hypoxic during her weaning and continues to experience copious amount of secretions from her endotracheal tube 3. History of polysubstance dependence ? UDS obtained on admission did show presumptive buprenorphine as well as benzos. 4. Tobacco dependence ? Per history plan is to automobile club travel counselor patient on cessation, once extubated 5. Hypophosphatemia ? Corrected via parenteral route repeat phosphate levels ordered in a.m. Also ordered magnesium level 6. Hyperglycemia with hemoglobin A1c of 6.5 ? Will monitor glucose levels with Accu-Cheks AC and at bedtime 7. DVT prophylaxis ? On enoxaparin Charges/Coding Visit Charges Inpatient E&M: 59240 Subs Hosp L2
[2024-07-08] MEDS: dexMEDEtomidine 400 MCG in 0.9% Normal Saline (100mL Bag) 96 ML 10.6 MCG CONT INF (07:21)
[2024-07-08 07:28] LABS: Hematocrit 49.2 % (37-47); Hemoglobin 15.8 g/dL (12.0-15.0); Mean Corp Hgb Conc 32.1 g/dL (32-36); Mean Corpuscular Hgb 26.6 pg (27.0-32.0); Mean Platelet Vol. 10.4 fl (6.2-12.0); Platelet Count 317 K/mm3 (150-450); RBC Distribution Width CV 19.8 % (11.6-14.6); RBC Distribution Width SD 56.6 fl (35.1-43.9); Red Blood Count 5.93 M/mm3 (4.2-5.4); White Blood Count 11.3 K/mm3 (4.4-11.0)
[2024-07-08] MEDS: Propofol 10MG/Ml 1,000 MG/100 ML Bottle 12.7 MG CONT INF (07:30)
--- NOTE | 2024-07-08 07:33 | PN.CC_ITS ---
Assessment & Plan Assessment/Plan (1) Acute respiratory failure with hypoxia and hypercarbia: (2) Postobstructive pneumonia: (3) Lung mass: PLAN: Plan RECOMMENDATIONS: 1. Continue assist-control mode mechanical ventilation. Wean FiO2 and PEEP as tolerated. 2. Continue current sedation regimen. 3. Continue antimicrobials, pending culture results. 4. Continue scheduled bronchodilators and IV steroids. 5. Continue appropriate ICU prophylaxis. 6. Okay to initiate tube feeding today from my perspective. 7. Plan to proceed with repeat spontaneous awakening and breathing trial once secretion output improves. 8. The patient will need to follow-up in our office after discharge so that we can coordinate timing for EBUS. IMPRESSIONS: 1. Acute combined respiratory failure Most likely multifactorial in etiology. The patient has suspected underlying obstructive lung disease, based upon a longstanding history of tobacco abuse, which is likely in a state of exacerbation secondary to a rhinovirus infection. In addition, CT imaging demonstrated the presence of a right hilar lung mass leading to adjacent airway compression and possible postobstructive pneumonia. Accordingly, the patient has been placed on antimicrobials, bronchodilators and steroids. The patient ultimately underwent bedside bronchoscopy on July 07 which demonstrated significant secretions throughout the right tracheobronchial tree with narrowing at the orifice of the right middle lobe. No endobronchial lesions were identified. Therapeutic airway suctioning was performed and BAL was obtained. The patient will ultimately need to follow-up in the pulmonary medicine clinic after discharge so that we can coordinate the timing for an EBUS procedure to be performed. Recommend proceeding with spontaneous awakening and breathing trials as tolerated. 2. Longstanding tobacco abuse history/polysubstance abuse Complicates care, management, recovery and prognosis. Continue supportive measures as noted above. Okay to initiate tube feeding today from my perspective. TIME: 34 minutes of critical care time, independent of procedures, was spent addressing the patient's acute combined respiratory failure, review of all data and collaboration with the care team. Subjective Subjective The patient was seen and examined at the bedside this morning. Events from the last 24 hours have been reviewed. The patient is currently afebrile, hemodynamically stable and maintaining appropriate oxygen saturations on assist- control mode mechanical ventilation with an FiO2 requirement of 35% and PEEP of 5. The patient underwent successful bronchoscopy yesterday with therapeutic airway suctioning performed throughout the right tracheobronchial tree due to significant secretion impaction. In addition, the patient was noted to have a narrowing at the orifice of the right middle lobe, for which outpatient EBUS will be scheduled. She is documented to be overall net +5.5 L for the hospitalization. This morning, the patient became hypoxemic on her spontaneous awakening trial. In addition, the patient has been experiencing significant endotracheal tube secretions. White blood cell count was noted to be 11,000. Chemistry profile remains within normal limits. Objective Data Objective Data The patient's most recent lab work, culture data and imaging studies have all been personally reviewed. Respiratory viral panel was positive for rhinovirus. BAL cultures are pending. Vital Signs: Vital Signs Temp Pulse Resp BP Pulse Ox O2 Del Method O2 Flow Rate 98.2 F 71 18 122/73 H 94 Mechanical Ventilator 15 07/08/24 07:00 07/08/24 07:00 07/08/24 07:00 07/08/24 07:00 07/08/24 07:00 07/08/24 07:00 07/06/24 20:30 FiO2 35 07/08/24 07:00 Oxygen Flow Rate (L/min) 15 Oxygen Delivery Method Mechanical Ventilator Weight: 155 lb 3.287 oz Body Mass Index (BMI) 25.8 Intake & Output: Intake and Output for Last 24 Hours 07/06/24 07/07/24 07/08/24 23:59 23:59 23:59 Intake Total 2863.34 / 2863.34 4002.34 / 4050.84 599.56 / 599.56 Output Total 1460 / 1460 500 / 500 Balance 2863.34 / 2863.34 2542.34 / 2590.84 99.56 / 99.56 Lab / Micro Data Attestation: I reviewed the patient's lab results. 07/08/24 05:12 07/08/24 05:12 Labs: Laboratory Results - last 24 hr 07/07/24 : Fluid Source BRONCHIAL LAVAGE, Fluid Color LT YEL, Fluid Appearance TURBID, Fluid WBC 8970, Fluid RBC 2625, Fluid Tot Cell Count TNP, Fluid Neutrophils 77, Fluid Lymphocytes 13, Fluid Other Cells 10, Fl Pathologist Comment May follow, Fluid Comment 2 Not Reportable 07/08/24 01:25: Vancomycin Trough 11.3 07/08/24 05:12: WBC 11.3 H, RBC 5.93 H, Hgb 15.8 H, Hct 49.2 H, MCV 83.0, MCH 26.6 L, MCHC 32.1, RDW Std Deviation 56.6 H, RDW Coeff of Myla 19.8 H, Plt Count 317, MPV 10.4 Micro: Microbiology 07/06/24 16:06 Urine, Clean Catch Urine Culture - Preliminary GNR lactose sewing machine repairer 07/06/24 21:00 Sputum, Induced/Lukens Gram Stain - Final 07/07/24 01:20 Mucosa - Nasopharyngeal Respiratory Panel (PCR) - Final Rhinovirus 07/07/24 01:50 Nasal Secretion MRSA (PCR) - Final 07/06/24 16:06 Urine Catheter - Catheter Legionella Antigen - Final 07/06/24 16:06 Urine Catheter - Catheter Streptococcus pneumoniae Antigen (M - Final 07/06/24 14:55 Mucosa - Nose SARS-CoV-2, Influenza & RSV (PCR) - Final ABG Data ABG results: ABG 07/06/24 22:25 Specimen Type ART Sample Site R Radial pH 7.34 L Bicarbonate Actual 34.7 H Total CO2 37 Base Excess 9 H O2 Saturation 97 O2 % 50.0 ABG pCO2 63.8 H ABG pO2 95 Morgan Test Positive Respiration Rate 16 O2 Delivery Device ET Tube Vent Mode AC Tidal Volume 450.0 POC PEEP 5 Physical Exam Const Constitutional Narrative: Intubated, sedated and mechanically ventilated. No ventilator dyssynchrony. HEENT normocephalic and head/scalp atraumatic Mouth: endotracheal tube in place and OG tube in place Eyes PERRL, EOMs intact bilaterally and conjunctivae normal Neck supple General: trachea midline Chest inspection of chest normal Resp Auscultation: rhonchi and diminished lung sounds; Negative for wheezes Cardio regular rate and regular rhythm GI normal to inspection, nondistended, normoactive bowel sounds Extremity no clubbing, cyanosis or edema Skin no rashes or lesions noted Neuro Sensorium / Orientation: sedated on vent Charges/Coding Procedures Hospitalists Procedures: 67876 Critical Care 1st Hr
--- NOTE | 2024-07-08 07:40 | NURSING ---
attempted spontaneous awakening trial with patient, saturations dropped to 83% on 35% O2 patient very restless and agitated and unable to stay calm. Continued to cough in attempt to remove the ETT and also reaching for the ETT at this time. Sedation restarted patient failed SAT
[2024-07-08 07:58] LABS: AST(SGOT) 14 U/L (<=31); Alanine Aminotransfer ALT/SGPT 12 U/L (<=34); Alkaline Phosphatase 78 U/L (35-104); Anion Gap 7 (5-15); BUN 7 mg/dL (4-19); BUN/Creat Ratio 16.7 RATIO (10-20); Calcium,Total 8.9 mg/dL (7.6-11.0); Carbon Dioxide 27.1 mmol/L (21.0-32.0); Chloride 103 mmol/L (98-108); Creatinine, Serum 0.44 mg/dL (0.70-1.20); EST Glomerular Filtration Rate 118 (>60); Estimated Creatinine Clearance 152.26 ml/min (50-250); Glucose 179 mg/dL (70-99); Phosphorus 3.9 mg/dL (2.7-4.5); Potassium 4.4 mmol/L (3.3-5.1); Protein, Total 5.9 g/dL (5.9-8.4); Sodium Level 138 mmol/L (133-145); Total Bilirubin 0.35 mg/dL (0.00-1.30)
[2024-07-08] MEDS: CHLORHEXIDINE GLUC 2% CLOTH 1 EACH TOWELETTE TOPICAL (08:31)
[2024-07-08] MEDS: Chlorhexidine 15 ML PO ×2 (08:31→21:20)
[2024-07-08] MEDS: Enoxaparin 40 MG/0.4 ML Syringe SC (08:32)
[2024-07-08] MEDS: Pantoprazole Sodium 40 MG in 0.9% Normal Saline (100mL MB+) 100 ML 330 MG IV (09:11)
--- NOTE | 2024-07-08 09:19 | CASEMGMT ---
Social Work [facility] met with pt's spouse and son. Pt currently intubated. Support provided to family. Pt with no health insurance. [facility] and is over income for Medicaid. [facility] provided packet of information for community resources. [facility] will remain available for ongoing support. OLY Mason
--- NOTE | 2024-07-08 09:27 | CASEMGMT ---
RADHA LOPES Assessment Face to Face with patient for initial transition planning/care coordination assessment. Pt is currently sedated and on the ventilator and is unable to participate in assessment. Pt at bedside and willing to help. Care providers, pharmacy, and demographics verified. Admitting dx: RF, Lung Mass, PNA LACE Strata: 3 PCP: No PCP. Resources provided, educated about [facility], and encouraged to call [facility] to schedule a PCP visit. Specialists: Denies Preferred Pharmacy: [facility] [place] Insurance: SP. [place] and [facility] had talked to the pt about this. Prescription Benefit: CM to follow. None currently. 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 Pt drives the pt DME: [facility], Pulse ox. CM to follow for additional needs including Oxygen. HHC/SNF: Denies hx ETOH/Smoking/Illicit Drug Use: Pt states that the pt does not drink ETOH but smokes 1 1/2 packs of cigarettes per day. Pt states that the pt was taking Xanax. See urine toxicology report. [facility] has provided resources to the pt regarding these issues. Pt?s goal: TBD Plan: TBD. Today is VD#3. Pt failed SBT this morning, see nurses note. Current 6-Click score is 7. Per ICU rounds, PT to see the pt today. Pt denies further questions at this time. CM and SW to follow. Maurisio Ardon RN, CM
[2024-07-08] MEDS: Vital AF 1.2 Cal Liquid 1,000 ML 25 ML GT (09:38)
[2024-07-08] MEDS: Propofol 10MG/Ml 1,000 MG/100 ML Bottle 16.9 MG CONT INF ×2 (12:42→17:23)
[2024-07-08] MEDS: fentaNYL drip 100 ML 12.5 MCG CONT INF (12:42)
[2024-07-08] MEDS: dexMEDEtomidine 400 MCG in 0.9% Normal Saline (100mL Bag) 96 ML 14.1 MCG CONT INF ×2 (14:07→21:34)
[2024-07-08] MEDS: fentaNYL drip 100 ML 15 MCG CONT INF (21:00)
[2024-07-08] MEDS: Propofol 10MG/Ml 1,000 MG/100 ML Bottle 21.1 MG CONT INF (21:35)
[2024-07-09] VITALS (36 sets, daily range): BP systolic 139–163; BP diastolic 71–92; PULSE 58–82; RESP 16–23; TEMP 36.9–37.3; O2SAT 89–97; BMI 25.8
[2024-07-09] MEDS: Propofol 10MG/Ml 1,000 MG/100 ML Bottle 21.1 MG CONT INF ×6 (01:23→20:25)
[2024-07-09] MEDS: CHLORHEXIDINE GLUC 2% CLOTH 1 EACH TOWELETTE TOPICAL (01:24)
[2024-07-09] MEDS: 0.9% Saline Lock 10 ML Syringe IV ×5 (01:26→16:53)
[2024-07-09 03:24] LABS: Vancomycin, Trough Level 14.6 ug/mL (5.0-15.0)
--- NOTE | 2024-07-09 03:35 | PCM.RX.CS ---
Consult Antibiotic Management Pharmacy has been consulted to manage selected antibiotic: Vancomycin Type of Intervention Type of Consult: Follow-up Labs Labs: Sodium 138 mmol/L (133-145) 07/08/24 05:12 Potassium 4.4 mmol/L (3.3-5.1) 07/08/24 05:12 Chloride 103 mmol/L (98-108) 07/08/24 05:12 Carbon Dioxide 27.1 mmol/L (21.0-32.0) 07/08/24 05:12 Anion Gap 7 (5-15) 07/08/24 05:12 BUN 7 mg/dL (4-19) 07/08/24 05:12 Creatinine 0.44 mg/dL (0.70-1.20) L 07/08/24 05:12 Est GFR (MDRD) Non-Af 118 (>60) 07/08/24 05:12 BUN/Creatinine Ratio 16.7 RATIO (10-20) 07/08/24 05:12 Glucose 179 mg/dL (70-99) H 07/08/24 05:12 Vancomycin Trough 14.6 ug/mL (5.0-15.0) 07/09/24 02:42 Microbiology Microbiology: Microbiology 07/07/24 Unknown Bronchial Lavage - Right Middle Lobe Gram Stain - Final 07/07/24 Unknown Bronchial Lavage - Right Middle Lobe Respiratory Culture - Preliminary Presumptive C albicans 07/06/24 16:06 Urine, Clean Catch Urine Culture - Final Klebsiella aerogenes 07/06/24 21:00 Sputum, Induced/Lukens Gram Stain - Final 07/07/24 01:20 Mucosa - Nasopharyngeal Respiratory Panel (PCR) - Final Rhinovirus 07/07/24 01:50 Nasal Secretion MRSA (PCR) - Final 07/06/24 16:06 Urine Catheter - Catheter Legionella Antigen - Final 07/06/24 16:06 Urine Catheter - Catheter Streptococcus pneumoniae Antigen (M - Final 07/06/24 14:55 Mucosa - Nose SARS-CoV-2, Influenza & RSV (PCR) - Final Goal Trough Goal Trough: 15-20 mcg/mL Pharmacy Plan for Drug Dosing Pharmacy Plan for Drug Dosing: VANCOMYCIN LEVEL RECEIVED Current Vancomycin Dose: 1000mg IV Q8h Number of Doses Received: 3 (of current regimen) Vancomycin Level: 14.6 Hours Since Last Dose: 8hr Renal Function: 0.44 Renal Function Trend: >100 mL/min Lab/Micro: (+) rhinovirus, SCx (+) C.albicans Vancomycin Plan/Comments: Patient had a trough drawn which resulted in a value of 14.6 (goal 51-20). The patient's trough is slightly subtherapeutic, but will continue current dose since she is getting it every 8 hours. Will recheck a trough in 24hr and if level is still below 15, will adjust dose at that time. Continue 1000mg IV Q8h at this time. Pending Level: 07/10/24 @1373 Pharmacy Service will continue to monitor and adjust dosing as required.
[2024-07-09] MEDS: Vancomycin IV 1,000 MG/200 ML BAG 200 MG IV ×3 (03:38→18:20)
[2024-07-09] MEDS: fentaNYL drip 100 ML 15 MCG CONT INF (04:00)
[2024-07-09] MEDS: Ipratropium/Albuterol Sulfate 3 ML AMPUL.NEB INHALATION ×5 (04:02→19:45)
[2024-07-09] MEDS: dexMEDEtomidine 400 MCG in 0.9% Normal Saline (100mL Bag) 96 ML 14.1 MCG CONT INF (05:00)
--- NOTE | 2024-07-09 05:05 | RAD_ITS ---
PROCEDURE: CHEST 1 VIEW (PORTABLE) 07/09/2024 REASON FOR EXAM: RESPIRATORY FAILURE TECHNIQUE: Frontal view of the chest. COMPARISON: 07/06/2024 FINDINGS: Overlying support tubes and wires. Endotracheal and nasogastric tubes again noted. There appears to be some improved aeration of the right middle lobe with less silhouetting of the right heart border although persistent opacity remains. Asymmetric fullness and density of the right hilum again seen. Suggestion of bandlike area retrocardiac left lower lobe may represent atelectasis. No evidence of pleural effusion. RAD/Chest 1 View (Portable) IMPRESSION: Endotracheal and nasogastric tubes again noted. There appears to be some improved aeration of the right middle lobe with less s ilhouetting of the right heart border although persistent opacity remains. Asymmetric fullness and density of the right hilum again seen. Suggestion of bandlike area retrocardiac left lower lobe may represent atelecta sis. No evidence of pleural effusion. Reading Location: [id number]
[2024-07-09 05:18] LABS: Absolute Lymphocyte Count 1.46 X10^3/uL (0.83-4.51); Absolute Neutrophil Count 8.5 X10^3/uL (2.0-7.7); Basophil# 0.04 X10^3/uL; Basophil% 0.4 % (0-1); Eosinophil# 0.01 X10^3/uL; Eosinophils% 0.1 % (0-5); Hemoglobin 15.5 g/dL (12.0-15.0); Lymphocyte # 1.46 X10^3/ul (0.83-4.51); Lymphocyte % 13.9 % (19-41); Mean Corpuscular Hgb 26.9 pg (27.0-32.0); Mean Corpuscular Volume 81.5 fL (81-99); Mean Platelet Vol. 9.2 fl (6.2-12.0); Monocyte# 0.46 X10^3/uL; Monocyte% 4.4 % (0-10); NRBC Flagged by Analyzer 0 % (0-5); Neutrophil % 80.7 % (47-70); Platelet Count 295 K/mm3 (150-450); RBC Distribution Width CV 19.8 % (11.6-14.6); RBC Distribution Width SD 55.8 fl (35.1-43.9); Red Blood Count 5.77 M/mm3 (4.2-5.4); White Blood Count 10.5 K/mm3 (4.4-11.0)
[2024-07-09] MEDS: Piperacil/Tazobactam 3.375 GM/50 ML ML IV ×3 (05:19→21:09)
[2024-07-09 05:34] LABS: Anion Gap 8 (5-15); BUN 9 mg/dL (4-19); BUN/Creat Ratio 18.7 RATIO (10-20); Calcium,Total 8.8 mg/dL (7.6-11.0); Carbon Dioxide 29.5 mmol/L (21.0-32.0); Chloride 103 mmol/L (98-108); Creatinine, Serum 0.48 mg/dL (0.70-1.20); EST Glomerular Filtration Rate 116 (>60); Estimated Creatinine Clearance 139.48 ml/min (50-250); Glucose 194 mg/dL (70-99); Potassium 3.6 mmol/L (3.3-5.1); Sodium Level 141 mmol/L (133-145)
[2024-07-09] MEDS: Albuterol 2.5 MG/3 ML VIAL.NEB. INHALATION ×2 (05:45→13:20)
[2024-07-09 06:05] LABS: Allen Test Positive; Base Excess 9 mmol/L (-2 to +2); Bicarbonate 34.2 mmol/L (22-26); Blood Gas Specimen Type ART; Mode AC; O2 Delivery Device Adult Vent; PEEP 5; PO2 64 mmHG (75-100); RR 16; SITE L Radial; SO2 91 % (95-99); Total Carbon Dioxide 36 mmol/L; pCO2 55.6 mmHg (35-45)
--- NOTE | 2024-07-09 07:20 | PCM.PN.HOSP ---
Reason for Visit Reason for Visit: Diagnoses Pneumonia, unspecified organism (07/06/24) Acute respiratory failure with hypoxia (07/06/24) Acute respiratory failure with hypercapnia (07/06/24) Other nonspecific abnormal finding of lung field (07/06/24) Subjective Subjective Patient seen remains on the vent. Viral respiratory panel came back positive for rhinovirus. Patient has significant bronchospasm on auscultation Objective Data Objective Data Vital Signs: Vital Signs Temp Pulse Resp BP Pulse Ox O2 Del Method O2 Flow Rate 98.4 F 68 19 H 145/80 H 93 Mechanical Ventilator 15 07/09/24 07:00 07/09/24 07:17 07/09/24 07:17 07/09/24 07:00 07/09/24 07:19 07/09/24 07:19 07/06/24 20:30 FiO2 40 07/09/24 07:19 Oxygen Flow Rate (L/min) 15 Oxygen Delivery Method Mechanical Ventilator Weight: 70.3 kg Body Mass Index (BMI) 25.8 Intake & Output: Intake and Output for Last 24 Hours 07/07/24 07/08/24 07/09/24 23:59 23:59 23:59 Intake Total 4002.34 / 4050.84 2248.74 / 2383.94 761.60 / 761.60 Output Total 1460 / 1460 1625 / 2625 1925 / 1925 Balance 2542.34 / 2590.84 623.74 / -241.06 -1163.40 / -1163.40 Lab / Micro Data 07/09/24 05:07 07/09/24 05:07 Labs: Laboratory Results - last 24 hr 07/08/24 05:12: WBC 11.3 H, RBC 5.93 H, Hgb 15.8 H, Hct 49.2 H, MCV 83.0, MCH 26.6 L, MCHC 32.1, RDW Std Deviation 56.6 H, RDW Coeff of Myla 19.8 H, Plt Count 317, MPV 10.4, Sodium 138, Potassium 4.4, Chloride 103, Carbon Dioxide 27.1, Anion Gap 7, BUN 7, Creatinine 0.44 L, Estim Creat Clear Calc 152.26, Est GFR (MDRD) Non-Af 118, BUN/Creatinine Ratio 16.7, Glucose 179 H, Calcium 8.9, Phosphorus 3.9, Magnesium 2.0, Total Bilirubin 0.35, AST 14, ALT 12, Alkaline Phosphatase 78, Total Protein 5.9, Albumin 3.0 L, Globulin 3.0, Albumin/Globulin Ratio 1.0 07/09/24 02:42: Vancomycin Trough 14.6 07/09/24 05:07: WBC 10.5, RBC 5.77 H, Hgb 15.5 H, Hct 47.0, MCV 81.5, MCH 26.9 L, MCHC 33.0, RDW Std Deviation 55.8 H, RDW Coeff of Myla 19.8 H, Plt Count 295, MPV 9.2, Immature Gran % (Auto) 0.500, Neut % (Auto) 80.7 H, Lymph % (Auto) 13.9 L, [place] % (Auto) 4.4, Eos % (Auto) 0.1, Baso % (Auto) 0.4, Absolute Neuts (auto) 8.5 H, Absolute Lymphs (auto) 1.46, Nucleated RBC % 0, Sodium 141, Potassium 3.6, Chloride 103, Carbon Dioxide 29.5, Anion Gap 8, BUN 9, Creatinine 0.48 L, Estim Creat Clear Calc 139.48, Est GFR (MDRD) Non-Af 116, BUN/Creatinine Ratio 18.7, Glucose 194 H, Calcium 8.8 Micro: Microbiology 07/07/24 Unknown Bronchial Lavage - Right Middle Lobe Gram Stain - Final 07/07/24 Unknown Bronchial Lavage - Right Middle Lobe Respiratory Culture - Preliminary Presumptive C albicans 07/06/24 16:06 Urine, Clean Catch Urine Culture - Final Klebsiella aerogenes 07/06/24 21:00 Sputum, Induced/Lukens Gram Stain - Final 07/07/24 01:20 Mucosa - Nasopharyngeal Respiratory Panel (PCR) - Final Rhinovirus 07/07/24 01:50 Nasal Secretion MRSA (PCR) - Final 07/06/24 16:06 Urine Catheter - Catheter Legionella Antigen - Final 07/06/24 16:06 Urine Catheter - Catheter Streptococcus pneumoniae Antigen (M - Final 07/06/24 14:55 Mucosa - Nose SARS-CoV-2, Influenza & RSV (PCR) - Final ABG Data ABG results: ABG 07/09/24 05:59 Specimen Type ART Sample Site L Radial pH 7.40 Bicarbonate Actual 34.2 H Total CO2 36 Base Excess 9 H O2 Saturation 91 L O2 % 40.0 ABG pCO2 55.6 H ABG pO2 64 L Morgan Test Positive Respiration Rate 16 O2 Delivery Device Adult Vent Vent Mode AC Tidal Volume 450.0 POC PEEP 5 Radiography Diagnostic Testing: Radiology Impression Chest X-Ray 07/09/24 05:05 IMPRESSION: Endotracheal and nasogastric tubes again noted. There appears to be some improved aeration of the right middle lobe with less silhouetting of the right heart border although persistent opacity remains. Asymmetric fullness and density of the right hilum again seen. Suggestion of bandlike area retrocardiac left lower lobe may represent atelectasis. No evidence of pleural effusion. Reading Location: [facility] Physical Exam Narrative GENERAL: Sedated on the vent HEENT: ET tube in place EYES; Anicteric, Normal Conjunctiva NECK; supple, normal thyroid, RESPIRATORY: Diminished to auscultation with bilateral wheezes CARDIOVASCULAR: Regular S1 S2, GI: soft, normoactive bowel sounds, : No Renal angle tenderness; EXTREMITIES: No edema, no clubbing, MUSCULOSKELETAL: no muscle wasting NEURO: Sedated on the vent SKIN: No Rash Assessment & Plan Assessment/Plan (1) Acute respiratory failure with hypoxia and hypercarbia: (2) Lung mass: (3) Postobstructive pneumonia: PLAN: Plan Patient is a 48-year-old lady with history of polysubstance dependence who was admitted with progressive shortness of breath 1. Acute hypoxic respiratory failure ? Imaging studies obtained on admission did show 3.7 x 1.9 cm right hilar mass/adenopathy with bronchus intermedius narrowing and resultant right middle lobe collapsed. Findings concerning for primary lung malignancy,/malignant adenopathy. Was also found to have Right middle lobe consolidative, ground-glass opacities and interlobular septal thickening, likely secondary to postobstructive pneumonitis. Patient was intubated in the emergency department admitted to the intensive care unit ? 07/09/2024 patient viral respiratory panel came back positive for rhinovirus. Patient has significant bronchospasm Solu-Medrol added to patient treatment regimen. 2. Postobstructive pneumonia ? Patient was started on vancomycin as well as Zosyn. Consult placed to co founder. Case discussed with Dr. Morales plans for patient to undergo bronchoscopy ? 07/08/2024;Underwent bronchoscopy with bronchial lavage. Patient remains on the vent. Per nursing staff patient was reported to be hypoxic during her weaning and continues to experience copious amount of secretions from her endotracheal tube 3. History of polysubstance dependence ? UDS obtained on admission did show presumptive buprenorphine as well as benzos. 4. Tobacco dependence ? Per history plan is to trauma counsellor patient on cessation, once extubated 5. Hypophosphatemia ? Corrected via parenteral route repeat phosphate levels ordered in a.m. Also ordered magnesium level 6. Hyperglycemia with hemoglobin A1c of 6.5 ? Will monitor glucose levels with Accu-Cheks AC and at bedtime 7. DVT prophylaxis ? On enoxaparin Charges/Coding Visit Charges Inpatient E&M: 32890 Subs Hosp L2
[2024-07-09] MEDS: Chlorhexidine 15 ML PO ×2 (08:00→21:09)
--- NOTE | 2024-07-09 08:57 | PCM.PN.TICU ---
Objective Data Objective Data Vital Signs: Vital Signs Last response Temperature 36.9 C 07/09/24 07:00 Temperature Source Core 07/09/24 07:00 Pulse Rate 68 07/09/24 07:17 Pulse Strength Normal (2+) 07/08/24 21:55 Respiratory Rate 19 H 07/09/24 07:17 Respiratory Effort Mechanically Ventilated 07/09/24 04:00 Respiratory Depth Normal 07/09/24 04:00 Respiratory Pattern Tachypnea 07/09/24 07:17 Blood Pressure 145/80 H 07/09/24 07:00 Blood Pressure Mean 101 07/09/24 07:00 Blood Pressure Source Monitor 07/09/24 07:00 Blood Pressure Position Semi-Fowlers 07/09/24 07:00 Blood Pressure Location Right Arm 07/09/24 07:00 Pulse Ox 93 07/09/24 07:19 Oxygen Delivery Method Mechanical Ventilator 07/09/24 07:19 Oxygen Flow Rate (L/min) 15 07/06/24 20:30 Fraction of Inspired Oxygen (FIO2) 40 07/09/24 07:19 I&O: I&O Last 24 Hours 07/08/24 07/08/24 07/09/24 11:59 23:59 11:59 Intake Total 1105.29 / 2383.94 1143.45 / 2383.94 761.60 / 761.60 Output Total 925 / 2625 700 / 2625 1925 / 1925 Balance 180.29 / -241.06 443.45 / -241.06 -1163.40 / -1163.40 I&O: Total Stay 07/06/24 14:07 thru 07/09/24 07:58 Intake Total 9876.02 Output Total 5010 Balance 4866.02 Current Meds Ordered / Administered: Current meds ordered / Administered Generic Name Dose Route Start Last Admin Trade Name Freq PRN Reason Stop Dose Admin Acetaminophen 650 mg 07/07/24 00:39 Acetaminophen 650 Mg Suppository RC Q4H PRN PRN Fever, pain 1-10 Acetaminophen 650 mg 07/07/24 00:39 Acetaminophen 325 Mg Tablet PO Q4H PRN PRN Fever, pain 1-10/10 Al Hydroxide/Mg Hydroxide 30 ml 07/07/24 00:39 Mag Hydrox/Al Hydrox/Simeth 30 Ml Udc PO Q6H PRN PRN Gastric Burning Albuterol Sulfate 2.5 mg 07/07/24 00:39 07/09/24 05:45 Albuterol 2.5 Mg/3 Ml Vial.Neb. INHALATION 2.5 mg Q2H PRN PRN Administration Dyspnea, wheezing Albuterol/Ipratropium 3 ml 07/07/24 00:39 07/09/24 07:14 Ipratropium/Albuterol Sulfate 3 Ml Ampul.Neb INHALATION 3 ml Q4HWA.RT RAZ Administration Chlorhexidine Gluconate 15 ml 07/07/24 10:00 07/08/24 21:20 Chlorhexidine 15 Ml PO 15 ml BID RAZ Administration Chlorhexidine Gluconate 1 each 07/07/24 10:00 07/09/24 01:24 Chlorhexidine Gluc 2% Cloth 1 Each [place] TOPICAL 1 each DAILY RAZ Administration Enoxaparin Sodium 40 mg 07/07/24 10:00 07/08/24 08:32 Enoxaparin 40 Mg/0.4 Ml Syringe SC 40 mg DAILY RAZ Administration Gabapentin 600 mg 07/07/24 10:00 07/08/24 21:21 Gabapentin 600 Mg Tablet PO Not Given BID RAZ Guaifenesin 10 ml 07/07/24 00:39 Guaifenesin 10 Ml Udc (200mg/10ml) PO Q4H PRN PRN COUGH Hydralazine HCl 10 mg 07/07/24 00:39 Hydralazine 20 Mg/Ml Vial IV Q4H PRN PRN SBP > 160 Protocol Vancomycin IV-PHARMACY TO DOSE 500 mls @ 250 mls/hr 07/07/24 00:39 1 each/ Sodium Chloride IV X1 PRN Rx to Dose Protocol Propofol 1,000 mg in 100 mls @ 4.218 mls/hr 07/07/24 00:39 07/09/24 06:00 Diprivan CONT INF 50 mcg/kg/min .Q12H RAZ 21.1 mls/hr Titration Protocol 10 MCG/KG/MIN Fentanyl 100 mls @ 5 mls/hr 07/07/24 00:39 07/09/24 06:00 CONT INF 150 mcg/hr UD RAZ 15 mls/hr Titration Protocol 50 MCG/HR Sodium Chloride 100 mls @ 15 mls/hr 07/07/24 01:01 IV .Q6H40M PRN Saline Flush Sodium Chloride 100 mls @ 15 mls/hr 07/07/24 01:01 IV .Q6H40M PRN Additional IVPB Infusion Dexmedetomidine HCl 400 mcg/ 100 mls @ 8.788 mls/hr 07/07/24 01:15 07/09/24 06:19 Sodium Chloride CONT INF Not Given .[id number] RAZ Protocol 0.5 MCG/KG/HR Piperacillin Sod/Tazobactam Sod 3.375 gm in 50 mls @ 12.5 mls/hr 07/07/24 14:00 07/09/24 05:19 Zosyn IV 12.5 mls/hr Q8 RAZ Administration Vancomycin HCl 1,000 mg in 200 mls @ 200 mls/hr 07/08/24 03:00 07/09/24 04:38 Vancomycin IV Infused Q8H RAZ Infusion Enteral Nutritional Formula 1,000 mls @ 55 mls/hr 07/08/24 09:15 07/09/24 03:39 Vital Af 1.2 Dwain Liquid GT Not Given .[id number] RAZ Pantoprazole Sodium 40 mg/ 110 mls @ 330 mls/hr 07/09/24 10:00 Sodium Chloride IV Q24 RAZ Melatonin 3 mg 07/07/24 00:39 Melatonin 3 Mg Tablet PO QHS PRN PRN INSOMNIA Methylprednisolone 40 mg 07/07/24 06:00 07/09/24 05:22 Methylprednisolone 40 Mg/Ml Vial IV 40 mg Q8 RAZ Administration Ondansetron HCl 4 mg 07/07/24 00:39 Ondansetron 4 Mg/2 Ml Vial IV Q8H PRN PRN NAUSEA/VOMITING Prochlorperazine Edisylate 5 mg 07/07/24 00:39 Prochlorperazine 10 Mg/2 Ml Vial IV Q4H PRN PRN Breakthrough Nausea/Vomiting Senna/Docusate Sodium 2 tablet 07/07/24 00:39 Senna/Docusate Sodium 1 Tablet PO BID PRN PRN Constipation Sodium Chloride 5 ml 07/07/24 00:39 Sodium Cl For Inhalation 15 Ml Vial.Neb. INHALATION Q5M PRN Suctioning Sodium Chloride 10 - 40 ml 07/07/24 01:01 07/09/24 05:23 0.9% Saline Lock 10 Ml Syringe IV 20 ml UD PRN Administration SALINE FLUSH Vancomycin Protocol 1 lab 07/10/24 01:30 Vancomycin Trough/Random Due MC 07/10/24 03:30 DAILY [facility] Lab / Micro Data Attestation: I reviewed the patient's lab results. 07/09/24 05:07 07/09/24 05:07 Labs: Laboratory Results - last 24 hr 07/09/24 02:42: Vancomycin Trough 14.6 07/09/24 05:07: WBC 10.5, RBC 5.77 H, Hgb 15.5 H, Hct 47.0, MCV 81.5, MCH 26.9 L, MCHC 33.0, RDW Std Deviation 55.8 H, RDW Coeff of Myla 19.8 H, Plt Count 295, MPV 9.2, Immature Gran % (Auto) 0.500, Neut % (Auto) 80.7 H, Lymph % (Auto) 13.9 L, [place] % (Auto) 4.4, Eos % (Auto) 0.1, Baso % (Auto) 0.4, Absolute Neuts (auto) 8.5 H, Absolute Lymphs (auto) 1.46, Nucleated RBC % 0, Sodium 141, Potassium 3.6, Chloride 103, Carbon Dioxide 29.5, Anion Gap 8, BUN 9, Creatinine 0.48 L, Estim Creat Clear Calc 139.48, Est GFR (MDRD) Non-Af 116, BUN/Creatinine Ratio 18.7, Glucose 194 H, Calcium 8.8 Micro: Microbiology 07/07/24 Unknown Bronchial Lavage - Right Middle Lobe Gram Stain - Final 07/07/24 Unknown Bronchial Lavage - Right Middle Lobe Respiratory Culture - Preliminary Presumptive C albicans 07/06/24 16:06 Urine, Clean Catch Urine Culture - Final Klebsiella aerogenes ABG Data ABG results: ABG 07/09/24 05:59 Specimen Type ART Sample Site L Radial pH 7.40 Bicarbonate Actual 34.2 H Total CO2 36 Base Excess 9 H O2 Saturation 91 L O2 % 40.0 ABG pCO2 55.6 H ABG pO2 64 L Morgan Test Positive Respiration Rate 16 O2 Delivery Device Adult Vent Vent Mode AC Tidal Volume 450.0 POC PEEP 5 Imaging Radiology Impression Chest X-Ray 07/09/24 05:05 IMPRESSION: Endotracheal and nasogastric tubes again noted. There appears to be some improved aeration of the right middle lobe with less silhouetting of the right heart border although persistent opacity remains. Asymmetric fullness and density of the right hilum again seen. Suggestion of bandlike area retrocardiac left lower lobe may represent atelectasis. No evidence of pleural effusion. Reading Location: [id number] Assessment and Plan . 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 Acute combined respiratory failure - components of underlying COPD, exacerbation, acute rhinovirus infection, airway compressions and mucus plugging - failing SAT due to high requirement for sedation (see #3) which is limiting effectiveness - saturations remain unstable due to plugging and dyssynchronous ventilation - add NAC to Duonebs - titrate up fentanyl/ precedex/ propofol - defer SBT today due to above issues 2. Right hilar mass - extrinsic airway compression at bronch - tissue diagnosis will require subsequent EBUS - following up cultures from previous BAL 3. Longstanding tobacco abuse history/polysubstance abuse Complicates care, management, recovery and prognosis. Continue supportive measures as noted above. 4. Obstipation - per she has infrequent BMs normally (once weekly) - current exam is benign - will add miralax and attempt to titrate up TF toward goal - add reglan Critical Care Time: 50 minutes The entirety of this encounter was done via Telemedicine Physical Exam Const General Appearance: in distress and patient mechanically ventilated HEENT Mouth: endotracheal tube in place and OG tube in place Eyes PERRL and EOMs intact bilaterally Neck full ROM Lymph Lymphatic: no lymphadenopathy noted Resp Effort and Inspection: tachypneic, actively coughing and prolonged expiratory phase Auscultation: wheezes and diminished lung sounds Cardio regular rate GI Inspection: abdominal distention Psych Mood & Affect: anxious Subjective Subjective Events reviewed, she remains anxious despite high doses of sedation, continued problems with mucus plugging from thick secretions and desaturating overnight. Dyssynchronous with the vent when fighting it.
--- NOTE | 2024-07-09 09:45 | NURSING ---
Dtr Denita present, update given, disc her mothers extreme agitation/MD orders/need to increase FiO2/current medications including pain meds and sedation. many questions answered. Dtr is concerned this is a set back and she was walking yesterday. much education re the ups and downs of getting better from severe illness, that SpO2 of 83% isn't exceptable even if she feels this is her mothers normal. Disc the effect of withdrawing from meds might have on her getting better. Dtr remains tearful, but indicates understanding. Much reassurance given. Notified to call anytime she has questions.
--- NOTE | 2024-07-09 10:45 | NURSING ---
This RN called Sohail for PICC line consent. consent given and verified by Martina Valencia RN. Update given. disc what was shared w/dtr Denita (who is present with her dad in their home). Many questions answered regarding procedure for weaning pt off the vent including the daily trials and why the pt isn't safe for breathing trial today (dt severe agitation this am). Dtr states she feels pt is in the middle of withdrawing from benzos even tho she shouldn't be that bad, it's not like she needs them, she just uses them for fun. Disc fentanyl/precedex/propofol and their uses in her mothers hospital stay. reassurance given. Sohail states he will be up for a visit this afternoon. To do difficulty keeping pt adequately sedated, this RN requested that while visiting, family remain calm in the room and keep interaction w/the pt to a minimum, especially if she begins to be agitated.
[2024-07-09] MEDS: fentaNYL drip 100 ML 20 MCG CONT INF ×3 (10:49→18:59)
[2024-07-09] MEDS: dexMEDEtomidine 400 MCG in 0.9% Normal Saline (100mL Bag) 96 ML 26.4 MCG CONT INF (10:50)
[2024-07-09] MEDS: Polyethylene Glycol 3350 17 GM PACKET 34 GM NG (11:13)
[2024-07-09] MEDS: Enoxaparin 40 MG/0.4 ML Syringe SC (11:13)
[2024-07-09] MEDS: Metoclopramide 10 MG/2 ML Vial 5 MG IV (11:15)
[2024-07-09] MEDS: Senna/Docusate Sodium 1 Tablet 2 TABLET PO (11:15)
[2024-07-09] MEDS: Acetylcysteine 800 MG/4 ML VIAL.NEB. INHALATION ×2 (13:20→19:45)
[2024-07-09] MEDS: Pantoprazole Sodium 40 MG in 0.9% Normal Saline (100mL MB+) 100 ML 330 MG IV (14:07)
--- NOTE | 2024-07-09 14:15 | RAD_ITS ---
PROCEDURE: CHEST 1 VIEW (PORTABLE) 07/09/2024 REASON FOR EXAM: PICC LINE PLACEMENT TECHNIQUE: Frontal view of the chest. COMPARISON: Earlier today FINDINGS: Hardware: Interval placement of right upper extremity PICC with tip of the catheter overlying the junction of the right atrium and superior vena cava. Endotracheal tube and nasogastric tube both of which are unchanged. Heart: Cardiac and mediastinal contours are stable. Lungs: Poor inspiration with some bibasilar atelectasis. Bones: The bones are unremarkable. Other: RAD/Chest 1 View (Portable) IMPRESSION: Interval placement of right upper extremity PICC with tip of the catheter overl shyla the junction of the right atrium and superior vena cava. Endotracheal tube and nasogastric tube both of which are unchanged. Poor inspiration with some bibasilar atelectasis. Reading Location: [id number]
[2024-07-09] MEDS: Dexmedetomidine 1,000 mcg in 0.9% NS 240 mL 24.6 MCG CONT INF (14:49)
[2024-07-09] MEDS: Vital AF 1.2 Cal Liquid 1,000 ML 55 ML GT (16:53)
[2024-07-09] MEDS: Gabapentin 600 MG Tablet PO (21:09)
[2024-07-10] VITALS (38 sets, daily range): BP systolic 110–161; BP diastolic 63–85; PULSE 62–98; RESP 16–22; TEMP 37.1–37.4; O2SAT 90–94; BMI 25.0
[2024-07-10] MEDS: fentaNYL drip 100 ML 20 MCG CONT INF ×5 (00:05→21:00)
[2024-07-10] MEDS: 0.9% Saline Lock 10 ML Syringe IV ×4 (00:08→20:59)
[2024-07-10] MEDS: hydrALAZINE 20 MG/ML Vial 10 MG IV (00:08)
[2024-07-10 00:40] LABS: Bedside Glucose 129 mg/dL (74-106)
[2024-07-10] MEDS: Propofol 10MG/Ml 1,000 MG/100 ML Bottle 21.1 MG CONT INF ×6 (01:09→21:12)
[2024-07-10] MEDS: Dexmedetomidine 1,000 mcg in 0.9% NS 240 mL 22.8 MCG CONT INF ×2 (01:40→13:17)
[2024-07-10] MEDS: Acetylcysteine 800 MG/4 ML VIAL.NEB. INHALATION ×4 (02:28→19:36)
[2024-07-10] MEDS: Albuterol 2.5 MG/3 ML VIAL.NEB. INHALATION ×2 (02:28→13:21)
[2024-07-10 03:21] LABS: Vancomycin, Trough Level 9.1 ug/mL (5.0-15.0)
[2024-07-10] MEDS: Vancomycin IV 1,000 MG/200 ML BAG 200 MG IV (03:35)
--- NOTE | 2024-07-10 03:46 | PCM.RX.CS ---
Consult Antibiotic Management Pharmacy has been consulted to manage selected antibiotic: Vancomycin Type of Intervention Type of Consult: Follow-up Labs Labs: Sodium 141 mmol/L (133-145) 07/09/24 05:07 Potassium 3.6 mmol/L (3.3-5.1) 07/09/24 05:07 Chloride 103 mmol/L (98-108) 07/09/24 05:07 Carbon Dioxide 29.5 mmol/L (21.0-32.0) 07/09/24 05:07 Anion Gap 8 (5-15) 07/09/24 05:07 BUN 9 mg/dL (4-19) 07/09/24 05:07 Creatinine 0.48 mg/dL (0.70-1.20) L 07/09/24 05:07 Est GFR (MDRD) Non-Af 116 (>60) 07/09/24 05:07 BUN/Creatinine Ratio 18.7 RATIO (10-20) 07/09/24 05:07 Glucose 194 mg/dL (70-99) H 07/09/24 05:07 Vancomycin Trough 9.1 ug/mL (5.0-15.0) 07/10/24 02:31 Microbiology Microbiology: Microbiology 07/07/24 Unknown Bronchial Lavage - Right Middle Lobe Gram Stain - Final 07/07/24 Unknown Bronchial Lavage - Right Middle Lobe Respiratory Culture - Preliminary Presumptive C albicans Streptococcus pneumoniae 07/06/24 21:00 Sputum, Induced/Lukens Gram Stain - Final 07/06/24 21:00 Sputum, Induced/Lukens Respiratory Culture - Preliminary Streptococcus pneumoniae Presumptive C albicans 07/06/24 16:06 Blood Culture (Wb) - Anticubital Right Blood Culture - Preliminary No growth in 48 hours. 07/06/24 16:06 Urine, Clean Catch Urine Culture - Final Klebsiella aerogenes 07/07/24 01:20 Mucosa - Nasopharyngeal Respiratory Panel (PCR) - Final Rhinovirus 07/07/24 01:50 Nasal Secretion MRSA (PCR) - Final 07/06/24 16:06 Urine Catheter - Catheter Legionella Antigen - Final 07/06/24 16:06 Urine Catheter - Catheter Streptococcus pneumoniae Antigen (M - Final 07/06/24 14:55 Mucosa - Nose SARS-CoV-2, Influenza & RSV (PCR) - Final Pharmacy Plan for Drug Dosing Pharmacy Plan for Drug Dosing: VANCOMYCIN LEVEL RECEIVED Current Vancomycin Dose: 1g IV Q8h Number of Doses Received: 6 Vancomycin Level: 9.1 Hours Since Last Dose: 8.25hr Renal Function: SCr 0.48 Renal Function Trend: stable Lab/Micro: SCx amina coe Vancomycin Plan/Comments: Patient had a trough drawn which resulted in a value of 9.1 (goal 15-20). This trough was only drawn 0.25hr later than the trough yesterday, which was 14.6. The patient has not had any significant changes in factors that would affect the vancomycin trough to be this low compared to yesterday's trough. Spoke with lab, and they could re-run it, but it could take upwards of 30-45min. In light of this, will give one more dose of vancomycin 1g and recheck a trough prior to the next scheduled dose to see if the trough has really dropped that much. For now, continue vancomycin 1g IV Q8h until the trough is re-checked. Pending Level: 07/10/24 @1030 Pharmacy Service will continue to monitor and adjust dosing as required.
[2024-07-10] MEDS: Piperacil/Tazobactam 3.375 GM/50 ML ML IV ×2 (05:09→13:17)
[2024-07-10] MEDS: Senna/Docusate Sodium 1 Tablet 2 TABLET PO ×2 (05:09→20:59)
[2024-07-10 05:32] LABS: Absolute Lymphocyte Count 2.42 X10^3/uL (0.83-4.51); Absolute Neutrophil Count 8.3 X10^3/uL (2.0-7.7); Basophil# 0.05 X10^3/uL; Basophil% 0.4 % (0-1); Eosinophil# 0.01 X10^3/uL; Eosinophils% 0.1 % (0-5); Hematocrit 48.7 % (37-47); Hemoglobin 15.8 g/dL (12.0-15.0); Lymphocyte # 2.42 X10^3/ul (0.83-4.51); Mean Corp Hgb Conc 32.4 g/dL (32-36); Mean Corpuscular Hgb 26.7 pg (27.0-32.0); Mean Corpuscular Volume 82.4 fL (81-99); Mean Platelet Vol. 9.1 fl (6.2-12.0); Monocyte# 0.64 X10^3/uL; Monocyte% 5.6 % (0-10); NRBC Flagged by Analyzer 0 % (0-5); Neutrophil # 8.32 X10^3/uL (2.7-7.7); Neutrophil % 72.3 % (47-70); Platelet Count 277 K/mm3 (150-450); RBC Distribution Width CV 19.9 % (11.6-14.6); RBC Distribution Width SD 56.7 fl (35.1-43.9); Red Blood Count 5.91 M/mm3 (4.2-5.4); White Blood Count 11.5 K/mm3 (4.4-11.0)
[2024-07-10 05:57] LABS: Anion Gap 7 (5-15); BUN 8 mg/dL (4-19); BUN/Creat Ratio 16.4 RATIO (10-20); Calcium,Total 8.7 mg/dL (7.6-11.0); Carbon Dioxide 30.5 mmol/L (21.0-32.0); Chloride 102 mmol/L (98-108); Creatinine, Serum 0.46 mg/dL (0.70-1.20); EST Glomerular Filtration Rate 117 (>60); Estimated Creatinine Clearance 145.55 ml/min (50-250); Glucose 163 mg/dL (70-99); Potassium 3.8 mmol/L (3.3-5.1); Sodium Level 139 mmol/L (133-145)
[2024-07-10] MEDS: Ipratropium/Albuterol Sulfate 3 ML AMPUL.NEB INHALATION ×4 (06:44→19:36)
--- NOTE | 2024-07-10 07:15 | PN.HOSP_ITS ---
Reason for Visit Reason for Visit: Diagnoses Pneumonia, unspecified organism (07/06/24) Acute respiratory failure with hypoxia (07/06/24) Acute respiratory failure with hypercapnia (07/06/24) Other nonspecific abnormal finding of lung field (07/06/24) Subjective Subjective Patient remains on the vent. Cultures from bronchial lavage came back positive for Streptococcus pneumoniae as well as C albicans. Plan is to attempt to wean in the morning Objective Data Objective Data Vital Signs: Vital Signs Temp Pulse Resp BP Pulse Ox O2 Del Method O2 Flow Rate 98.9 F 65 16 144/77 H 92 Mechanical Ventilator 15 07/10/24 05:00 07/10/24 07:00 07/10/24 07:00 07/10/24 07:00 07/10/24 07:00 07/10/24 07:00 07/06/24 20:30 FiO2 45 07/10/24 07:00 Oxygen Flow Rate (L/min) 15 Oxygen Delivery Method Mechanical Ventilator Weight: 68.1 kg Body Mass Index (BMI) 25.0 Intake & Output: Intake and Output for Last 24 Hours 07/08/24 07/09/24 07/10/24 23:59 23:59 23:59 Intake Total 2248.74 / 2383.94 3667.88 / 3816.45 1515.92 / 1515.92 Output Total 1625 / 2625 4825 / 5750 1790 / 1790 Balance 623.74 / -241.06 -1157.12 / -1933.55 -274.08 / -274.08 Lab / Micro Data 07/10/24 05:25 07/10/24 05:25 Labs: Laboratory Results - last 24 hr 07/10/24 00:14: POC Glucose 129 H 07/10/24 02:31: Vancomycin Trough 9.1 07/10/24 05:25: WBC 11.5 H, RBC 5.91 H, Hgb 15.8 H, Hct 48.7 H, MCV 82.4, MCH 26.7 L, MCHC 32.4, RDW Std Deviation 56.7 H, RDW Coeff of Myla 19.9 H, Plt Count 277, MPV 9.1, Immature Gran % (Auto) 0.600, Neut % (Auto) 72.3 H, Lymph % (Auto) 21.0, [place] % (Auto) 5.6, Eos % (Auto) 0.1, Baso % (Auto) 0.4, Absolute Neuts (auto) 8.3 H, Absolute Lymphs (auto) 2.42, Nucleated RBC % 0, Sodium 139, Potassium 3.8, Chloride 102, Carbon Dioxide 30.5, Anion Gap 7, BUN 8, Creatinine 0.46 L, Estim Creat Clear Calc 145.55, Est GFR (MDRD) Non-Af 117, BUN/Creatinine Ratio 16.4, Glucose 163 H, Calcium 8.7 Micro: Microbiology 07/07/24 Unknown Bronchial Lavage - Right Middle Lobe Gram Stain - Final 07/07/24 Unknown Bronchial Lavage - Right Middle Lobe Respiratory Culture - Preliminary Presumptive C albicans Streptococcus pneumoniae 07/06/24 21:00 Sputum, Induced/Lukens Gram Stain - Final 07/06/24 21:00 Sputum, Induced/Lukens Respiratory Culture - Preliminary Streptococcus pneumoniae Presumptive C albicans 07/06/24 16:06 Blood Culture (Wb) - Anticubital Right Blood Culture - Preliminary No growth in 48 hours. 07/06/24 16:06 Urine, Clean Catch Urine Culture - Final Klebsiella aerogenes 07/07/24 01:20 Mucosa - Nasopharyngeal Respiratory Panel (PCR) - Final Rhinovirus 07/07/24 01:50 Nasal Secretion MRSA (PCR) - Final 07/06/24 16:06 Urine Catheter - Catheter Legionella Antigen - Final 07/06/24 16:06 Urine Catheter - Catheter Streptococcus pneumoniae Antigen (M - Final 07/06/24 14:55 Mucosa - Nose SARS-CoV-2, Influenza & RSV (PCR) - Final Radiography Diagnostic Testing: Radiology Impression Chest X-Ray 07/09/24 14:15 IMPRESSION: Interval placement of right upper extremity PICC with tip of the catheter overlying the junction of the right atrium and superior vena cava. Endotracheal tube and nasogastric tube both of which are unchanged. Poor inspiration with some bibasilar atelectasis. Reading Location: [facility] Physical Exam Narrative GENERAL: Sedated on the vent HEENT: ET tube in place EYES; Anicteric, Normal Conjunctiva NECK; supple, normal thyroid, RESPIRATORY: Diminished to auscultation with bilateral wheezes CARDIOVASCULAR: Regular S1 S2, GI: soft, normoactive bowel sounds, : No Renal angle tenderness; EXTREMITIES: No edema, no clubbing, MUSCULOSKELETAL: no muscle wasting NEURO: Sedated on the vent SKIN: No Rash Assessment & Plan Assessment/Plan (1) Acute respiratory failure with hypoxia and hypercarbia: (2) Lung mass: (3) Postobstructive pneumonia: PLAN: Plan Patient is a 48-year-old lady with history of polysubstance dependence who was admitted with progressive shortness of breath 1. Acute hypoxic respiratory failure ? Imaging studies obtained on admission did show 3.7 x 1.9 cm right hilar mass/adenopathy with bronchus intermedius narrowing and resultant right middle lobe collapsed. Findings concerning for primary lung malignancy,/malignant adenopathy. Was also found to have Right middle lobe consolidative, ground- glass opacities and interlobular septal thickening, likely secondary to postobstructive pneumonitis. Patient was intubated in the emergency department admitted to the intensive care unit ? 07/09/2024 patient viral respiratory panel came back positive for rhinovirus. Patient has significant bronchospasm Solu-Medrol added to patient treatment regimen. ? 07/10/2024; patient remains on the vent weaning deferred to billposting supervisor 2. Postobstructive pneumonia ? Patient was started on vancomycin as well as Zosyn. Consult placed to billposting supervisor. Case discussed with Dr. Morales plans for patient to undergo bronchoscopy ? 07/08/2024;Underwent bronchoscopy with bronchial lavage. Patient remains on the vent. Per nursing staff patient was reported to be hypoxic during her weaning and continues to experience copious amount of secretions from her endotracheal tube ? 07/10/2024; cultures from bronchial lavage came back positive for strep pneumo. Patient remains on appropriate antibiotic therapy 3. History of polysubstance dependence ? UDS obtained on admission did show presumptive buprenorphine as well as benzos. 4. Tobacco dependence ? Per history plan is to student counsellor patient on cessation, once extubated 5. Hypophosphatemia ? Corrected via parenteral route repeat phosphate levels ordered in a.m. Also ordered magnesium level 6. Hyperglycemia with hemoglobin A1c of 6.5 ? Will monitor glucose levels with Accu-Cheks AC and at bedtime 7. DVT prophylaxis ? On enoxaparin Charges/Coding Visit Charges Inpatient E&M: 36251 Subs Hosp L2
[2024-07-10] MEDS: CHLORHEXIDINE GLUC 2% CLOTH 1 EACH TOWELETTE TOPICAL (08:46)
[2024-07-10] MEDS: Chlorhexidine 15 ML PO ×2 (08:46→21:00)
[2024-07-10] MEDS: Polyethylene Glycol 3350 17 GM PACKET 34 GM NG (10:17)
[2024-07-10] MEDS: Enoxaparin 40 MG/0.4 ML Syringe SC (10:17)
[2024-07-10] MEDS: Pantoprazole Sodium 40 MG in 0.9% Normal Saline (100mL MB+) 100 ML 330 MG IV (10:18)
[2024-07-10] MEDS: Gabapentin 600 MG Tablet PO ×2 (10:18→20:59)
[2024-07-10] MEDS: 0.9% Normal Saline (100mL Bag) 100 ML 15 ML IV (11:17)
--- NOTE | 2024-07-10 12:11 | PCM.PN.TICU ---
Objective Data Objective Data Vital Signs: Vital Signs Last response Temperature 37.2 C 07/10/24 11:00 Temperature Source Core 07/10/24 11:00 Pulse Rate 72 07/10/24 11:00 Pulse Strength Normal (2+) 07/08/24 21:55 Respiratory Rate 16 07/10/24 11:00 Respiratory Effort Mechanically Ventilated 07/10/24 08:00 Respiratory Depth Normal 07/10/24 04:00 Respiratory Pattern Normal 07/10/24 10:03 Blood Pressure 127/71 H 07/10/24 11:00 Blood Pressure Mean 89 07/10/24 11:00 Blood Pressure Source Monitor 07/10/24 09:15 Blood Pressure Position Semi-Fowlers 07/10/24 11:00 Blood Pressure Location Left Arm 07/10/24 11:00 Pulse Ox 91 07/10/24 11:00 Oxygen Delivery Method Mechanical Ventilator 07/10/24 08:00 Oxygen Flow Rate (L/min) 15 07/06/24 20:30 Fraction of Inspired Oxygen (FIO2) 45 07/10/24 09:17 I&O: I&O Last 24 Hours 07/09/24 07/10/24 07/10/24 23:59 11:59 23:59 Intake Total 2522.49 / 3816.45 2259.15 / 2259.15 Output Total 2900 / 5750 2590 / 2590 Balance -377.51 / -1933.55 -330.85 / -330.85 I&O: Total Stay 07/06/24 14:07 thru 07/10/24 11:00 Intake Total 20179.45 Output Total 26322 Balance 4541.45 Current Meds Ordered / Administered: Current meds ordered / Administered Generic Name Dose Route Start Last Admin Trade Name Freq PRN Reason Stop Dose Admin Acetaminophen 650 mg 07/07/24 00:39 Acetaminophen 650 Mg Suppository RC Q4H PRN PRN Fever, pain 1-10 Acetaminophen 650 mg 07/07/24 00:39 Acetaminophen 325 Mg Tablet PO Q4H PRN PRN Fever, pain 1-10/10 Acetylcysteine 800 mg 07/09/24 09:15 07/10/24 06:44 Acetylcysteine 800 Mg/4 Ml Vial.Neb. INHALATION 800 mg Q6H.RT RAZ Administration Al Hydroxide/Mg Hydroxide 30 ml 07/07/24 00:39 Mag Hydrox/Al Hydrox/Simeth 30 Ml Udc PO Q6H PRN PRN Gastric Burning Albuterol Sulfate 2.5 mg 07/07/24 00:39 07/10/24 02:28 Albuterol 2.5 Mg/3 Ml Vial.Neb. INHALATION 2.5 mg Q2H PRN PRN Administration Dyspnea, wheezing Albuterol/Ipratropium 3 ml 07/07/24 00:39 07/10/24 10:03 Ipratropium/Albuterol Sulfate 3 Ml Ampul.Neb INHALATION 3 ml Q4HWA.RT RAZ Administration Chlorhexidine Gluconate 15 ml 07/07/24 10:00 07/10/24 08:46 Chlorhexidine 15 Ml PO 15 ml BID RAZ Administration Chlorhexidine Gluconate 1 each 07/07/24 10:00 07/10/24 08:46 Chlorhexidine Gluc 2% Cloth 1 Each Towelette TOPICAL 1 each DAILY RAZ Administration Enoxaparin Sodium 40 mg 07/07/24 10:00 07/10/24 10:17 Enoxaparin 40 Mg/0.4 Ml Syringe SC 40 mg DAILY RAZ Administration Gabapentin 600 mg 07/07/24 10:00 07/10/24 10:18 Gabapentin 600 Mg Tablet PO 600 mg BID RAZ Administration Guaifenesin 10 ml 07/07/24 00:39 Guaifenesin 10 Ml Udc (200mg/10ml) PO Q4H PRN PRN COUGH Hydralazine HCl 10 mg 07/07/24 00:39 07/10/24 00:08 Hydralazine 20 Mg/Ml Vial IV 10 mg Q4H PRN PRN Administration SBP > 160 Protocol Propofol 1,000 mg in 100 mls @ 4.218 mls/hr 07/07/24 00:39 07/10/24 11:00 Diprivan CONT INF 50 mcg/kg/min .Q12H RAZ 21.1 mls/hr Titration Protocol 10 MCG/KG/MIN Fentanyl 100 mls @ 5 mls/hr 07/07/24 00:39 07/10/24 11:00 CONT INF 200 mcg/hr UD RAZ 20 mls/hr Titration Protocol 50 MCG/HR Sodium Chloride 100 mls @ 15 mls/hr 07/07/24 01:01 07/10/24 11:17 IV 15 mls/hr .Q6H40M PRN Administration Saline Flush Sodium Chloride 100 mls @ 15 mls/hr 07/07/24 01:01 IV .Q6H40M PRN Additional IVPB Infusion Piperacillin Sod/Tazobactam Sod 3.375 gm in 50 mls @ 12.5 mls/hr 07/07/24 14:00 07/10/24 09:09 Zosyn IV 07/10/24 20:00 Infused Q8 RAZ Infusion Enteral Nutritional Formula 1,000 mls @ 55 mls/hr 07/08/24 09:15 07/10/24 11:00 Vital Af 1.2 Dwain Liquid GT 55 mls/hr .[id number] RAZ Infusion Pantoprazole Sodium 40 mg/ 110 mls @ 330 mls/hr 07/09/24 10:00 07/10/24 10:38 Sodium Chloride IV Infused Q24 RAZ Infusion Dexmedetomidine HCl 1,000 mcg/ 250 mls @ 26.363 mls/hr 07/09/24 11:40 07/10/24 11:00 Sodium Chloride CONT INF 1.3 mcg/kg/hr .Q9H29M RAZ 22.8 mls/hr Titration Protocol 1.5 MCG/KG/HR Piperacillin Sod/Tazobactam 50 mls @ 12.5 mls/hr 07/10/24 22:00 Sod 3.375 gm/ Sodium Chloride IV Q8 RAZ Melatonin 3 mg 07/07/24 00:39 Melatonin 3 Mg Tablet PO QHS PRN PRN INSOMNIA Methylprednisolone 40 mg 07/07/24 06:00 07/10/24 05:10 Methylprednisolone 40 Mg/Ml Vial IV 40 mg Q8 RAZ Administration Metoclopramide HCl 5 mg 07/09/24 09:08 07/09/24 11:15 Metoclopramide 10 Mg/2 Ml Vial IV 5 mg Q8H PRN PRN Administration Constipation Ondansetron HCl 4 mg 07/07/24 00:39 Ondansetron 4 Mg/2 Ml Vial IV Q8H PRN PRN NAUSEA/VOMITING Polyethylene Glycol 34 gm 07/09/24 10:00 07/10/24 10:17 Polyethylene Glycol 3350 17 Gm Packet NG 34 gm DAILY RAZ Administration Prochlorperazine Edisylate 5 mg 07/07/24 00:39 Prochlorperazine 10 Mg/2 Ml Vial IV Q4H PRN PRN Breakthrough Nausea/Vomiting Senna/Docusate Sodium 2 tablet 07/07/24 00:39 07/10/24 05:09 Senna/Docusate Sodium 1 Tablet PO 2 tablet BID PRN PRN Administration Constipation Sodium Chloride 5 ml 07/07/24 00:39 Sodium Cl For Inhalation 15 Ml Vial.Neb. INHALATION Q5M PRN Suctioning Sodium Chloride 10 - 40 ml 07/07/24 01:01 07/10/24 05:10 0.9% Saline Lock 10 Ml Syringe IV 10 ml UD PRN Administration SALINE FLUSH Lab / Micro Data Attestation: I reviewed the patient's lab results. 07/10/24 05:25 07/10/24 05:25 Labs: Laboratory Results - last 24 hr 07/10/24 00:14: POC Glucose 129 H 07/10/24 02:31: Vancomycin Trough 9.1 07/10/24 05:25: WBC 11.5 H, RBC 5.91 H, Hgb 15.8 H, Hct 48.7 H, MCV 82.4, MCH 26.7 L, MCHC 32.4, RDW Std Deviation 56.7 H, RDW Coeff of Myla 19.9 H, Plt Count 277, MPV 9.1, Immature Gran % (Auto) 0.600, Neut % (Auto) 72.3 H, Lymph % (Auto) 21.0, [place] % (Auto) 5.6, Eos % (Auto) 0.1, Baso % (Auto) 0.4, Absolute Neuts (auto) 8.3 H, Absolute Lymphs (auto) 2.42, Nucleated RBC % 0, Sodium 139, Potassium 3.8, Chloride 102, Carbon Dioxide 30.5, Anion Gap 7, BUN 8, Creatinine 0.46 L, Estim Creat Clear Calc 145.55, Est GFR (MDRD) Non-Af 117, BUN/Creatinine Ratio 16.4, Glucose 163 H, Calcium 8.7 Micro: Microbiology 07/07/24 Unknown Bronchial Lavage - Right Middle Lobe Gram Stain - Final 07/07/24 Unknown Bronchial Lavage - Right Middle Lobe Respiratory Culture - Final Presumptive C albicans Streptococcus pneumoniae 07/06/24 21:00 Sputum, Induced/Lukens Gram Stain - Final 07/06/24 21:00 Sputum, Induced/Lukens Respiratory Culture - Final Streptococcus pneumoniae Presumptive C albicans 07/06/24 16:06 Blood Culture (Wb) - Anticubital Right Blood Culture - Preliminary No growth in 48 hours. Imaging Radiology Impression Chest X-Ray 07/09/24 14:15 IMPRESSION: Interval placement of right upper extremity PICC with tip of the catheter overlying the junction of the right atrium and superior vena cava. Endotracheal tube and nasogastric tube both of which are unchanged. Poor inspiration with some bibasilar atelectasis. Reading Location: [id number] Assessment and Plan . Assessment and plan: Objective Data Objective Data Vital Signs: Vital Signs Last response Temperature 36.9 C 07/09/24 07:00 Temperature Source Core 07/09/24 07:00 Pulse Rate 68 07/09/24 07:17 Pulse Strength Normal (2+) 07/08/24 21:55 Respiratory Rate 19 H 07/09/24 07:17 Respiratory Effort Mechanically Ventilated 07/09/24 04:00 Respiratory Depth Normal 07/09/24 04:00 Respiratory Pattern Tachypnea 07/09/24 07:17 Blood Pressure 145/80 H 07/09/24 07:00 Blood Pressure Mean 101 07/09/24 07:00 Blood Pressure Source Monitor 07/09/24 07:00 Blood Pressure Position Semi-Fowlers 07/09/24 07:00 Blood Pressure Location Right Arm 07/09/24 07:00 Pulse Ox 93 07/09/24 07:19 Oxygen Delivery Method Mechanical Ventilator 07/09/24 07:19 Oxygen Flow Rate (L/min) 15 07/06/24 20:30 Fraction of Inspired Oxygen (FIO2) 40 07/09/24 07:19 I&O: I&O Last 24 Hours 07/08/24 07/08/24 07/09/24 11:59 23:59 11:59 Intake Total 1105.29 / 2383.94 1143.45 / 2383.94 761.60 / 761.60 Output Total 925 / 2625 700 / 2625 1925 / 1925 Balance 180.29 / -241.06 443.45 / -241.06 -1163.40 / -1163.40 I&O: Total Stay 07/06/24 14:07 thru 07/09/24 07:58 Intake Total 9876.02 Output Total 5010 Balance 4866.02 Current Meds Ordered / Administered: Current meds ordered / Administered Generic Name Dose Route Start Last Admin Trade Name Freq PRN Reason Stop Dose Admin Acetaminophen 650 mg 07/07/24 00:39 Acetaminophen 650 Mg Suppository RC Q4H PRN PRN Fever, pain 1-10 Acetaminophen 650 mg 07/07/24 00:39 Acetaminophen 325 Mg Tablet PO Q4H PRN PRN Fever, pain 1-10/10 Al Hydroxide/Mg Hydroxide 30 ml 07/07/24 00:39 Mag Hydrox/Al Hydrox/Simeth 30 Ml Udc PO Q6H PRN PRN Gastric Burning Albuterol Sulfate 2.5 mg 07/07/24 00:39 07/09/24 05:45 Albuterol 2.5 Mg/3 Ml Vial.Neb. INHALATION 2.5 mg Q2H PRN PRN Administration Dyspnea, wheezing Albuterol/Ipratropium 3 ml 07/07/24 00:39 07/09/24 07:14 Ipratropium/Albuterol Sulfate 3 Ml Ampul.Neb INHALATION 3 ml Q4HWA.RT RAZ Administration Chlorhexidine Gluconate 15 ml 07/07/24 10:00 07/08/24 21:20 Chlorhexidine 15 Ml PO 15 ml BID RAZ Administration Chlorhexidine Gluconate 1 each 07/07/24 10:00 07/09/24 01:24 Chlorhexidine Gluc 2% Cloth 1 Each Towelette TOPICAL 1 each DAILY RAZ Administration Enoxaparin Sodium 40 mg 07/07/24 10:00 07/08/24 08:32 Enoxaparin 40 Mg/0.4 Ml Syringe SC 40 mg DAILY RAZ Administration Gabapentin 600 mg 07/07/24 10:00 07/08/24 21:21 Gabapentin 600 Mg Tablet PO Not Given BID RAZ Guaifenesin 10 ml 07/07/24 00:39 Guaifenesin 10 Ml Udc (200mg/10ml) PO Q4H PRN PRN COUGH Hydralazine HCl 10 mg 07/07/24 00:39 Hydralazine 20 Mg/Ml Vial IV Q4H PRN PRN SBP > 160 Protocol Vancomycin IV-PHARMACY TO DOSE 500 mls @ 250 mls/hr 07/07/24 00:39 1 each/ Sodium Chloride IV X1 PRN Rx to Dose Protocol Propofol 1,000 mg in 100 mls @ 4.218 mls/hr 07/07/24 00:39 07/09/24 06:00 Diprivan CONT INF 50 mcg/kg/min .Q12H RAZ 21.1 mls/hr Titration Protocol 10 MCG/KG/MIN Fentanyl 100 mls @ 5 mls/hr 07/07/24 00:39 07/09/24 06:00 CONT INF 150 mcg/hr UD RAZ 15 mls/hr Titration Protocol 50 MCG/HR Sodium Chloride 100 mls @ 15 mls/hr 07/07/24 01:01 IV .Q6H40M PRN Saline Flush Sodium Chloride 100 mls @ 15 mls/hr 07/07/24 01:01 IV .Q6H40M PRN Additional IVPB Infusion Dexmedetomidine HCl 400 mcg/ 100 mls @ 8.788 mls/hr 07/07/24 01:15 07/09/24 06:19 Sodium Chloride CONT INF Not Given .[id number] RAZ Protocol 0.5 MCG/KG/HR Piperacillin Sod/Tazobactam Sod 3.375 gm in 50 mls @ 12.5 mls/hr 07/07/24 14:00 07/09/24 05:19 Zosyn IV 12.5 mls/hr Q8 RAZ Administration Vancomycin HCl 1,000 mg in 200 mls @ 200 mls/hr 07/08/24 03:00 07/09/24 04:38 Vancomycin IV Infused Q8H RAZ Infusion Enteral Nutritional Formula 1,000 mls @ 55 mls/hr 07/08/24 09:15 07/09/24 03:39 Vital Af 1.2 Dwain Liquid GT Not Given .[id number] RAZ Pantoprazole Sodium 40 mg/ 110 mls @ 330 mls/hr 07/09/24 10:00 Sodium Chloride IV Q24 RAZ Melatonin 3 mg 07/07/24 00:39 Melatonin 3 Mg Tablet PO QHS PRN PRN INSOMNIA Methylprednisolone 40 mg 07/07/24 06:00 07/09/24 05:22 Methylprednisolone 40 Mg/Ml Vial IV 40 mg Q8 RAZ Administration Ondansetron HCl 4 mg 07/07/24 00:39 Ondansetron 4 Mg/2 Ml Vial IV Q8H PRN PRN NAUSEA/VOMITING Prochlorperazine Edisylate 5 mg 07/07/24 00:39 Prochlorperazine 10 Mg/2 Ml Vial IV Q4H PRN PRN Breakthrough Nausea/Vomiting Senna/Docusate Sodium 2 tablet 07/07/24 00:39 Senna/Docusate Sodium 1 Tablet PO BID PRN PRN Constipation Sodium Chloride 5 ml 07/07/24 00:39 Sodium Cl For Inhalation 15 Ml Vial.Neb. INHALATION Q5M PRN Suctioning Sodium Chloride 10 - 40 ml 07/07/24 01:01 07/09/24 05:23 0.9% Saline Lock 10 Ml Syringe IV 20 ml UD PRN Administration SALINE FLUSH Vancomycin Protocol 1 lab 07/10/24 01:30 Vancomycin Trough/Random Due MC 07/10/24 03:30 DAILY [facility] Lab / Micro Data Attestation: I reviewed the patient's lab results. 07/09/24 05:07 07/09/24 05:07 Labs: Laboratory Results - last 24 hr 07/09/24 02:42: Vancomycin Trough 14.6 07/09/24 05:07: WBC 10.5, RBC 5.77 H, Hgb 15.5 H, Hct 47.0, MCV 81.5, MCH 26.9 L, MCHC 33.0, RDW Std Deviation 55.8 H, RDW Coeff of Myla 19.8 H, Plt Count 295, MPV 9.2, Immature Gran % (Auto) 0.500, Neut % (Auto) 80.7 H, Lymph % (Auto) 13.9 L, [place] % (Auto) 4.4, Eos % (Auto) 0.1, Baso % (Auto) 0.4, Absolute Neuts (auto) 8.5 H, Absolute Lymphs (auto) 1.46, Nucleated RBC % 0, Sodium 141, Potassium 3.6, Chloride 103, Carbon Dioxide 29.5, Anion Gap 8, BUN 9, Creatinine 0.48 L, Estim Creat Clear Calc 139.48, Est GFR (MDRD) Non-Af 116, BUN/Creatinine Ratio 18.7, Glucose 194 H, Calcium 8.8 Micro: Microbiology 07/07/24 Unknown Bronchial Lavage - Right Middle Lobe Gram Stain - Final 07/07/24 Unknown Bronchial Lavage - Right Middle Lobe Respiratory Culture - Preliminary Presumptive C albicans 07/06/24 16:06 Urine, Clean Catch Urine Culture - Final Klebsiella aerogenes ABG Data ABG results: ABG 07/09/24 05:59 Specimen Type ART Sample Site L Radial pH 7.40 Bicarbonate Actual 34.2 H Total CO2 36 Base Excess 9 H O2 Saturation 91 L O2 % 40.0 ABG pCO2 55.6 H ABG pO2 64 L Morgan Test Positive Respiration Rate 16 O2 Delivery Device Adult Vent Vent Mode AC Tidal Volume 450.0 POC PEEP 5 Assessment & Plan Assessment/Plan (1) Acute respiratory failure with hypoxia and hypercarbia: (2) Postobstructive pneumonia: (3) Lung mass: PLAN: Plan IMPRESSIONS: 1. Acute combined respiratory failure - components of underlying COPD, exacerbation, acute rhinovirus infection, airway compressions and mucus plugging - failing SAT due to high requirement for sedation (see #3) which is limiting effectiveness - saturations remain unstable due to plugging and dyssynchronous ventilation - struggling to progress with SBT currently - continue efforts at pulmonary toilet 2. Right hilar mass - extrinsic airway compression at bronch - tissue diagnosis will require subsequent EBUS - following up cultures from previous BAL- NGTD 3. Longstanding tobacco abuse history/polysubstance abuse Complicates care, management, recovery and prognosis. Continue supportive measures as noted above. 4. Obstipation - per she has infrequent BMs normally (once weekly) - current exam is benign - continue miralax and attempt to titrate up TF toward goal - add reglan Critical Care Time: 50 minutes The entirety of this encounter was done via Telemedicine Physical Exam Const General Appearance: in distress, uncooperative, combative and patient mechanically ventilated Exam Limitations: altered mental status and physical limitations Eyes EOMs intact bilaterally and conjunctivae normal Neck full ROM Chest Chest: symmetrical chest wall rise Resp Effort and Inspection: abnormal respiratory pattern and mechanically ventilated Cardio Rate: regular rate Subjective Subjective Unable to make progress with vent wean; still with excess secretions and agitated when vent support turned down, sedated necessarily increased. NGT residuals also elevated.
[2024-07-10] MEDS: Vital AF 1.2 Cal Liquid 1,000 ML 55 ML GT (15:36)
[2024-07-10] MEDS: Metoclopramide 10 MG/2 ML Vial 5 MG IV (18:08)
[2024-07-10] MEDS: Piperacil/Tazobactam 3.375 GM in 0.9% Normal Saline (50mL MB+) 50 ML IV (21:05)
[2024-07-11] VITALS (33 sets, daily range): BP systolic 131–164; BP diastolic 68–91; PULSE 56–124; RESP 14–28; TEMP 36.3–37.6; O2SAT 74–99; BMI 24.7
[2024-07-11] MEDS: Dexmedetomidine 1,000 mcg in 0.9% NS 240 mL 26.4 MCG CONT INF
[2024-07-11] MEDS: Propofol 10MG/Ml 1,000 MG/100 ML Bottle 21.1 MG CONT INF ×2 (01:27→05:40)
[2024-07-11] MEDS: 0.9% Saline Lock 10 ML Syringe IV ×2 (01:27)
[2024-07-11] MEDS: fentaNYL drip 100 ML 20 MCG CONT INF ×2 (02:00→06:52)
[2024-07-11 03:08] LABS: Absolute Neutrophil Count 9.7 X10^3/uL (2.0-7.7); Basophil# 0.07 X10^3/uL; Basophil% 0.6 % (0-1); Hematocrit 49.7 % (37-47); Hemoglobin 16.2 g/dL (12.0-15.0); Lymphocyte % 16.3 % (19-41); Mean Corp Hgb Conc 32.6 g/dL (32-36); Mean Corpuscular Hgb 26.8 pg (27.0-32.0); Mean Corpuscular Volume 82.1 fL (81-99); Mean Platelet Vol. 8.8 fl (6.2-12.0); Monocyte# 0.35 X10^3/uL; Monocyte% 2.9 % (0-10); NRBC Flagged by Analyzer 0 % (0-5); Neutrophil # 9.72 X10^3/uL (2.7-7.7); Neutrophil % 79.3 % (47-70); POSITIVE MORPHOLOGY YES; Platelet Count 278 K/mm3 (150-450); RBC Distribution Width CV 20.2 % (11.6-14.6); Red Blood Count 6.05 M/mm3 (4.2-5.4); White Blood Count 12.3 K/mm3 (4.4-11.0)
[2024-07-11 03:36] LABS: Differential Indicated SCAN CRITERIA MET
[2024-07-11 03:37] LABS: Anion Gap 8 (5-15); BUN 9 mg/dL (4-19); BUN/Creat Ratio 20.4 RATIO (10-20); Calcium,Total 9.1 mg/dL (7.6-11.0); Carbon Dioxide 29.6 mmol/L (21.0-32.0); Chloride 102 mmol/L (98-108); Creatinine, Serum 0.45 mg/dL (0.70-1.20); EST Glomerular Filtration Rate 118 (>60); Estimated Creatinine Clearance 136.08 ml/min (50-250); Glucose 156 mg/dL (70-99); Potassium 4.1 mmol/L (3.3-5.1); Sodium Level 139 mmol/L (133-145)
[2024-07-11 05:08] LABS: Anisocytosis 1+
[2024-07-11] MEDS: CHLORHEXIDINE GLUC 2% CLOTH 1 EACH TOWELETTE TOPICAL (05:37)
[2024-07-11] MEDS: Piperacil/Tazobactam 3.375 GM in 0.9% Normal Saline (50mL MB+) 50 ML IV (05:37)
[2024-07-11] MEDS: Ipratropium/Albuterol Sulfate 3 ML AMPUL.NEB INHALATION ×4 (06:45→19:38)
[2024-07-11] MEDS: Acetylcysteine 800 MG/4 ML VIAL.NEB. INHALATION (06:45)
--- NOTE | 2024-07-11 07:34 | PCM.PN.HOSP ---
Reason for Visit Reason for Visit: Diagnoses Pneumonia, unspecified organism (07/06/24) Acute respiratory failure with hypoxia (07/06/24) Acute respiratory failure with hypercapnia (07/06/24) Other nonspecific abnormal finding of lung field (07/06/24) Objective Data Objective Data Vital Signs: Vital Signs Temp Pulse Resp BP Pulse Ox O2 Del Method O2 Flow Rate 99.6 F H 60 16 159/80 H 91 Mechanical Ventilator 15 07/11/24 06:00 07/11/24 07:00 07/11/24 07:00 07/11/24 07:00 07/11/24 07:00 07/11/24 07:00 07/06/24 20:30 FiO2 40 07/11/24 07:00 Oxygen Flow Rate (L/min) 15 Oxygen Delivery Method Mechanical Ventilator Weight: 148 lb 9.465 oz Body Mass Index (BMI) 24.7 Intake & Output: Intake and Output for Last 24 Hours 07/09/24 07/10/24 07/11/24 23:59 23:59 23:59 Intake Total 3667.88 / 3816.45 3781.65 / 3917.76 742.72 / 742.72 Output Total 4825 / 5750 3515 / 4265 1900 / 1900 Balance -1157.12 / -1933.55 266.65 / -347.24 -1157.28 / -1157.28 Lab / Micro Data 07/11/24 02:54 07/11/24 02:54 Labs: Laboratory Results - last 24 hr 07/11/24 02:54: WBC 12.3 H, RBC 6.05 H, Hgb 16.2 H, Hct 49.7 H, MCV 82.1, MCH 26.8 L, MCHC 32.6, RDW Std Deviation 57.0 H, RDW Coeff of Myla 20.2 H, Plt Count 278, MPV 8.8, Immature Gran % (Auto) 0.900, Neut % (Auto) 79.3 H, Lymph % (Auto) 16.3 L, [place] % (Auto) 2.9, Eos % (Auto) 0.0, Baso % (Auto) 0.6, Absolute Neuts (auto) 9.7 H, Absolute Lymphs (auto) 2.00, Nucleated RBC % 0, Anisocytosis 1+, Sodium 139, Potassium 4.1, Chloride 102, Carbon Dioxide 29.6, Anion Gap 8, BUN 9, Creatinine 0.45 L, Estim Creat Clear Calc 136.08, Est GFR (MDRD) Non-Af 118, BUN/Creatinine Ratio 20.4 H, Glucose 156 H, Calcium 9.1 Micro: Microbiology 07/07/24 Unknown Bronchial Lavage - Right Middle Lobe Gram Stain - Final 07/07/24 Unknown Bronchial Lavage - Right Middle Lobe Respiratory Culture - Final Presumptive C albicans Streptococcus pneumoniae 07/06/24 21:00 Sputum, Induced/Lukens Gram Stain - Final 07/06/24 21:00 Sputum, Induced/Lukens Respiratory Culture - Final Streptococcus pneumoniae Presumptive C albicans 07/06/24 16:06 Blood Culture (Wb) - Anticubital Right Blood Culture - Preliminary No growth in 48 hours. 07/06/24 16:06 Urine, Clean Catch Urine Culture - Final Klebsiella aerogenes 07/07/24 01:20 Mucosa - Nasopharyngeal Respiratory Panel (PCR) - Final Rhinovirus 07/07/24 01:50 Nasal Secretion MRSA (PCR) - Final 07/06/24 16:06 Urine Catheter - Catheter Legionella Antigen - Final 07/06/24 16:06 Urine Catheter - Catheter Streptococcus pneumoniae Antigen (M - Final 07/06/24 14:55 Mucosa - Nose SARS-CoV-2, Influenza & RSV (PCR) - Final Physical Exam Narrative Seen and examined. Patient intubated on 3 sedatives propofol, fentanyl and Precedex Sinus rhythm. BP 159/80. Intubated on 40% FiO2, PEEP 5, TV 450 mL Kirby catheter, light yellow-colored urine Physical exam General: Sedated. HEENT: Atraumatic, PERRLA, EOMI, Normocephalic Oral: ETT and OG tube Neck: Supple, No JVD, Negative Carotid Bruits Chest wall/Lungs: Air entry diminished in bilateral lung bases. Bilateral wheezing Cardiovascular: Sinus rhythm normal S1, Normal S2, No M/G/R Abdomen: Bowel Sounds Present, Soft, Non Tender, Non-Distended : No dysuria. No renal angle tenderness. No suprapubic tenderness. Extremities: No edema, Capillary Refill Less than 3 Seconds Skin: No rashes, No breakdown Musculoskeletal: Hands and feet in soft restraint. No Tenderness to Palpation of Joints or Extremities Neurological: Sedated. Detailed neuroexam unobtainable. No clear lateralizing signs Psych/Mental Status: Sedated. Assessment & Plan Assessment/Plan (1) Acute respiratory failure with hypoxia and hypercarbia: (2) Lung mass: (3) Postobstructive pneumonia: PLAN: Plan Patient is a 48-year-old lady with history of polysubstance dependence who was admitted with progressive shortness of breath 1. Acute hypoxic and hypercarbic combined respiratory failure: candida with bronchus intermedius narrowing and resultant right middle lobe collapsed. Findings concerning for primary lung malignancy,/malignant adenopathy. Was also found to have Right middle lobe consolidative, ground-glass opacities and interlobular septal thickening, likely secondary to postobstructive pneumonitis. Patient was intubated in the emergency department admitted to the intensive care unit patient viral respiratory panel came back positive for rhinovirus. IV Solu-Medrol was added. 07/11: Seen by coal pulverizing operator. Patient on 3 sedative medications, propofol, fentanyl and Precedex. Continue scheduled steroid and bronchodilator. 2. Postobstructive pneumonia ? Patient was started on vancomycin as well as Zosyn. Consult placed to coal pulverizing operator. Case discussed with Dr. Morales plans for patient to undergo bronchoscopy ? 07/08/2024;Underwent bronchoscopy with bronchial lavage. Patient remains on the vent. Per nursing staff patient was reported to be hypoxic during her weaning and continues to experience copious amount of secretions from her endotracheal tube cultures from bronchial lavage came back positive for strep pneumo. Patient remains on appropriate antibiotic therapy 07/11: Antibiotic de-escalated to IV ceftriaxone for strep pneumo. 3. History of polysubstance dependence U tox on admission reported presumptive buprenorphine as well as benzos. 4. Tobacco dependence ? Per history plan is to summer counselor patient on cessation, once extubated 5. Hypophosphatemia ? Corrected via parenteral route repeat phosphate levels ordered in a.m. Also ordered magnesium level 6. Hyperglycemia with hemoglobin A1c of 6.5 ?Accu-Chek before meals and at bedtime with Humalog sliding scale coverage and hypoglycemia protocol. 7. DVT prophylaxis ? On enoxaparin Charges/Coding Visit Charges Inpatient E&M: 66872 Subs Hosp L3
--- NOTE | 2024-07-11 07:39 | PCM.PN.INT ---
Assessment & Plan Assessment/Plan (1) Acute respiratory failure with hypoxia and hypercarbia: (2) Postobstructive pneumonia: (3) Lung mass: PLAN: Plan RECOMMENDATIONS: 1. Supplemental oxygen to maintain saturations at or above 90%. Airvo okay, if needed. 2. Okay to de-escalate to ceftriaxone. 3. Continue scheduled bronchodilators and steroids. 4. Speech therapy evaluation, prior to advancement of diet. 5. Encourage incentive spirometer use and mobilize patient as tolerated. 6. The patient will need to follow-up in our office after discharge so that we can coordinate timing for EBUS. IMPRESSIONS: 1. Acute combined respiratory failure Most likely multifactorial in etiology. The patient has suspected underlying obstructive lung disease, based upon a longstanding history of tobacco abuse, which is likely in a state of exacerbation secondary to a rhinovirus infection with superimposed pneumococcal pneumonia. In addition, CT imaging demonstrated the presence of a right hilar lung mass leading to adjacent airway compression and mucous plugging. Accordingly, the patient has been maintained on antimicrobials, bronchodilators and steroids. The patient ultimately underwent bedside bronchoscopy on July 07 which demonstrated significant secretions throughout the right tracheobronchial tree with narrowing at the orifice of the right middle lobe. No endobronchial lesions were identified. Therapeutic airway suctioning was performed and BAL was obtained. The patient will ultimately need to follow-up in the pulmonary medicine clinic after discharge so that we can coordinate the timing for an EBUS procedure to be performed. Ultimately, the patient self extubated on July 11. Plan to continue supplemental oxygen to maintain saturations at or above 90%. Antibiotics will be de-escalated to ceftriaxone. Speech therapy to evaluate the patient prior to advancement of diet. 2. Longstanding tobacco abuse history/polysubstance abuse Complicates care, management, recovery and prognosis. Continue supportive measures as noted above. Physical therapy to continue to work with the patient. TIME: 36 minutes of critical care time, independent of procedures, was spent addressing the patient's acute combined respiratory failure, review of all data and collaboration with the care team. Subjective Subjective The patient was seen and examined at the bedside this morning. Events from the last 24 hours have been reviewed. The patient is currently afebrile, hemodynamically stable and maintaining appropriate oxygen saturations on assist-control mode of mechanical ventilation with an FiO2 requirement of 40% and PEEP of 5. The patient's endotracheal tube secretions have improved. She is documented to be overall net positive for liter for the hospitalization. While the patient was deemed to be appropriate for a spontaneous awakening and breathing trial, a short time after being placed on her SBT, the patient self extubated. Objective Data Objective Data The patient's most recent lab work, culture data and imaging studies have all been personally reviewed. Respiratory viral panel was positive for rhinovirus. BAL culture was positive for Streptococcus pneumonia. Vital Signs: Vital Signs Temp Pulse Resp BP Pulse Ox O2 Del Method O2 Flow Rate 99.6 F H 60 16 159/80 H 91 Mechanical Ventilator 15 07/11/24 06:00 07/11/24 07:00 07/11/24 07:00 07/11/24 07:00 07/11/24 07:00 07/11/24 07:00 07/06/24 20:30 FiO2 40 07/11/24 07:00 Oxygen Flow Rate (L/min) 15 Oxygen Delivery Method Mechanical Ventilator Weight: 148 lb 9.465 oz Body Mass Index (BMI) 24.7 Intake & Output: Intake and Output for Last 24 Hours 07/09/24 07/10/24 07/11/24 23:59 23:59 23:59 Intake Total 3667.88 / 3816.45 3781.65 / 3917.76 742.72 / 742.72 Output Total 4825 / 5750 3515 / 4265 1900 / 1900 Balance -1157.12 / -1933.55 266.65 / -347.24 -1157.28 / -1157.28 Lab / Micro Data Attestation: I reviewed the patient's lab results. 07/11/24 02:54 07/11/24 02:54 Labs: Laboratory Results - last 24 hr 07/11/24 02:54: WBC 12.3 H, RBC 6.05 H, Hgb 16.2 H, Hct 49.7 H, MCV 82.1, MCH 26.8 L, MCHC 32.6, RDW Std Deviation 57.0 H, RDW Coeff of Myla 20.2 H, Plt Count 278, MPV 8.8, Immature Gran % (Auto) 0.900, Neut % (Auto) 79.3 H, Lymph % (Auto) 16.3 L, [place] % (Auto) 2.9, Eos % (Auto) 0.0, Baso % (Auto) 0.6, Absolute Neuts (auto) 9.7 H, Absolute Lymphs (auto) 2.00, Nucleated RBC % 0, Anisocytosis 1+, Sodium 139, Potassium 4.1, Chloride 102, Carbon Dioxide 29.6, Anion Gap 8, BUN 9, Creatinine 0.45 L, Estim Creat Clear Calc 136.08, Est GFR (MDRD) Non-Af 118, BUN/Creatinine Ratio 20.4 H, Glucose 156 H, Calcium 9.1 Micro: Microbiology 07/07/24 Unknown Bronchial Lavage - Right Middle Lobe Gram Stain - Final 07/07/24 Unknown Bronchial Lavage - Right Middle Lobe Respiratory Culture - Final Presumptive C albicans Streptococcus pneumoniae 07/06/24 21:00 Sputum, Induced/Lukens Gram Stain - Final 07/06/24 21:00 Sputum, Induced/Lukens Respiratory Culture - Final Streptococcus pneumoniae Presumptive C albicans 07/06/24 16:06 Blood Culture (Wb) - Anticubital Right Blood Culture - Preliminary No growth in 48 hours. 07/06/24 16:06 Urine, Clean Catch Urine Culture - Final Klebsiella aerogenes 07/07/24 01:20 Mucosa - Nasopharyngeal Respiratory Panel (PCR) - Final Rhinovirus 07/07/24 01:50 Nasal Secretion MRSA (PCR) - Final 07/06/24 16:06 Urine Catheter - Catheter Legionella Antigen - Final 07/06/24 16:06 Urine Catheter - Catheter Streptococcus pneumoniae Antigen (M - Final 07/06/24 14:55 Mucosa - Nose SARS-CoV-2, Influenza & RSV (PCR) - Final ABG Data ABG results: ABG 07/06/24 22:25 Specimen Type ART Sample Site R Radial pH 7.34 L Bicarbonate Actual 34.7 H Total CO2 37 Base Excess 9 H O2 Saturation 97 O2 % 50.0 ABG pCO2 63.8 H ABG pO2 95 Morgan Test Positive Respiration Rate 16 O2 Delivery Device ET Tube Vent Mode AC Tidal Volume 450.0 POC PEEP 5 Physical Exam Const Constitutional Narrative: Remains intubated and mechanically ventilated. HEENT normocephalic and head/scalp atraumatic Mouth: endotracheal tube in place and OG tube in place Eyes PERRL, EOMs intact bilaterally and conjunctivae normal Neck supple General: trachea midline Chest inspection of chest normal Resp Auscultation: diminished lung sounds; Negative for rales, rhonchi or wheezes Cardio regular rate and regular rhythm GI normal to inspection, nondistended, normoactive bowel sounds Extremity no clubbing, cyanosis or edema Skin no rashes or lesions noted Neuro Sensorium / Orientation: sedated on vent Psych Mood & Affect: anxious Charges/Coding Procedures Hospitalists Procedures: 42276 Critical Care 1st Hr
--- NOTE | 2024-07-11 09:49 | NURSING ---
0840: Patient on SBT, calm and following commands, VSS 0855: patient self extubated, this RN and RT came to bedside. 8L NC applied. MD aware. Patient agitated, crying. Patient told to take deep breaths and needs to calm down. Patient able to follow instructions and was able to relax. Family notified and came to bedside.
[2024-07-11] MEDS: Chlorhexidine 15 ML PO (10:05)
[2024-07-11] MEDS: Pantoprazole Sodium 40 MG in 0.9% Normal Saline (100mL MB+) 100 ML 330 MG IV (10:05)
[2024-07-11] MEDS: Dexmedetomidine 1,000 mcg in 0.9% NS 240 mL 25.3 MCG CONT INF ×2 (10:08→20:47)
[2024-07-11] MEDS: Ceftriaxone 1 GM/50 ML BAG IV (10:41)
--- NOTE | 2024-07-11 11:46 | CPS ---
PATIENT SELF EXTUBATED DURING SBT, PLACED ON 8LPM
[2024-07-12] VITALS (24 sets, daily range): BP systolic 122–171; BP diastolic 64–94; PULSE 70–118; RESP 11–23; TEMP 36.2–36.7; O2SAT 90–97; BMI 22.8
[2024-07-12] MEDS: Ondansetron 4 MG/2 ML Vial IV ×2 (02:46→20:59)
[2024-07-12] MEDS: 0.9% Saline Lock 10 ML Syringe IV (02:46)
[2024-07-12 04:37] LABS: Absolute Lymphocyte Count 3.13 X10^3/uL (0.83-4.51); Absolute Neutrophil Count 8.8 X10^3/uL (2.0-7.7); Basophil# 0.09 X10^3/uL; Basophil% 0.7 % (0-1); Eosinophils% 0.8 % (0-5); Hematocrit 49.6 % (37-47); Lymphocyte # 3.13 X10^3/ul (0.83-4.51); Lymphocyte % 24.2 % (19-41); Mean Corp Hgb Conc 32.3 g/dL (32-36); Mean Corpuscular Hgb 26.6 pg (27.0-32.0); Mean Corpuscular Volume 82.4 fL (81-99); Mean Platelet Vol. 9.3 fl (6.2-12.0); Monocyte# 0.72 X10^3/uL; Monocyte% 5.6 % (0-10); NRBC Flagged by Analyzer 0 % (0-5); Neutrophil # 8.81 X10^3/uL (2.7-7.7); Neutrophil % 68.2 % (47-70); Platelet Count 285 K/mm3 (150-450); RBC Distribution Width CV 19.9 % (11.6-14.6); RBC Distribution Width SD 56.5 fl (35.1-43.9); Red Blood Count 6.02 M/mm3 (4.2-5.4); White Blood Count 12.9 K/mm3 (4.4-11.0)
[2024-07-12 05:02] LABS: Anion Gap 12 (5-15); BUN 11 mg/dL (4-19); BUN/Creat Ratio 24.7 RATIO (10-20); Calcium,Total 9.1 mg/dL (7.6-11.0); Carbon Dioxide 29.8 mmol/L (21.0-32.0); Chloride 99 mmol/L (98-108); Creatinine, Serum 0.43 mg/dL (0.70-1.20); EST Glomerular Filtration Rate 119 (>60); Estimated Creatinine Clearance 142.41 ml/min (50-250); Glucose 107 mg/dL (70-99); Potassium 3.2 mmol/L (3.3-5.1); Sodium Level 140 mmol/L (133-145)
[2024-07-12] MEDS: Dexmedetomidine 1,000 mcg in 0.9% NS 240 mL 25.3 MCG CONT INF (06:41)
[2024-07-12] MEDS: Ipratropium/Albuterol Sulfate 3 ML AMPUL.NEB INHALATION ×4 (07:09→21:53)
--- NOTE | 2024-07-12 07:22 | PCM.PN.HOSP ---
Reason for Visit Reason for Visit: Diagnoses Pneumonia, unspecified organism (07/06/24) Acute respiratory failure with hypoxia (07/06/24) Acute respiratory failure with hypercapnia (07/06/24) Other nonspecific abnormal finding of lung field (07/06/24) Objective Data Objective Data Vital Signs: Vital Signs Temp Pulse Resp BP Pulse Ox O2 Del Method O2 Flow Rate 97.3 F L 70 16 160/87 H 97 Nasal Cannula 10 07/12/24 04:00 07/12/24 07:12 07/12/24 07:12 07/12/24 07:00 07/12/24 07:12 07/12/24 07:12 07/12/24 07:12 FiO2 40 07/11/24 08:00 Oxygen Flow Rate (L/min) 10 Oxygen Delivery Method Nasal Cannula Weight: 137 lb 2.04 oz Body Mass Index (BMI) 22.8 Intake & Output: Intake and Output for Last 24 Hours 07/10/24 07/11/24 07/12/24 23:59 23:59 23:59 Intake Total 3781.65 / 3917.76 2249.69 / 2274.99 201.92 / 201.92 Output Total 3515 / 4265 4800 / 4800 400 / 400 Balance 266.65 / -347.24 -2550.31 / -2525.01 -198.08 / -198.08 Lab / Micro Data 07/12/24 04:15 07/12/24 04:15 Labs: Laboratory Results - last 24 hr 07/12/24 04:15: WBC 12.9 H, RBC 6.02 H, Hgb 16.0 H, Hct 49.6 H, MCV 82.4, MCH 26.6 L, MCHC 32.3, RDW Std Deviation 56.5 H, RDW Coeff of Myla 19.9 H, Plt Count 285, MPV 9.3, Immature Gran % (Auto) 0.500, Neut % (Auto) 68.2, Lymph % (Auto) 24.2, [place] % (Auto) 5.6, Eos % (Auto) 0.8, Baso % (Auto) 0.7, Absolute Neuts (auto) 8.8 H, Absolute Lymphs (auto) 3.13, Nucleated RBC % 0, Sodium 140, Potassium 3.2 L, Chloride 99, Carbon Dioxide 29.8, Anion Gap 12, BUN 11, Creatinine 0.43 L, Estim Creat Clear Calc 142.41, Est GFR (MDRD) Non-Af 119, BUN/Creatinine Ratio 24.7 H, Glucose 107 H, Calcium 9.1 Micro: Microbiology 07/06/24 16:06 Blood Culture (Wb) - Anticubital Right Blood Culture - Final No growth in 5 days. 07/06/24 14:56 Blood Culture (Wb) - Anticubital Left Blood Culture - Final No growth in 5 days. 07/07/24 Unknown Bronchial Lavage - Right Middle Lobe Gram Stain - Final 07/07/24 Unknown Bronchial Lavage - Right Middle Lobe Respiratory Culture - Final Presumptive C albicans Streptococcus pneumoniae 07/06/24 21:00 Sputum, Induced/Lukens Gram Stain - Final 07/06/24 21:00 Sputum, Induced/Lukens Respiratory Culture - Final Streptococcus pneumoniae Presumptive C albicans 07/06/24 16:06 Urine, Clean Catch Urine Culture - Final Klebsiella aerogenes 07/07/24 01:20 Mucosa - Nasopharyngeal Respiratory Panel (PCR) - Final Rhinovirus 07/07/24 01:50 Nasal Secretion MRSA (PCR) - Final 07/06/24 16:06 Urine Catheter - Catheter Legionella Antigen - Final 07/06/24 16:06 Urine Catheter - Catheter Streptococcus pneumoniae Antigen (M - Final 07/06/24 14:55 Mucosa - Nose SARS-CoV-2, Influenza & RSV (PCR) - Final Physical Exam Narrative Seen and examined. Patient is extubated actually self extubated at night. Currently on Precedex drip Sinus rhythm. BP better. Kirby catheter removed. She feels short of breath and has auditory hallucination Physical exam General: Awake, lethargic. HEENT: Atraumatic, PERRLA, EOMI, Normocephalic Oral: No oral ulcer. Neck: Supple, No JVD, Negative Carotid Bruits Chest wall/Lungs: Air entry diminished in bilateral lung bases. Bilateral wheezing Cardiovascular: Sinus rhythm normal S1, Normal S2, No M/G/R Abdomen: Bowel Sounds Present, Soft, Non Tender, Non-Distended : No dysuria. No renal angle tenderness. No suprapubic tenderness. Extremities: No edema, Capillary Refill Less than 3 Seconds Skin: No rashes, No breakdown Musculoskeletal: Hands and feet in soft restraint. No Tenderness to Palpation of Joints or Extremities Neurological: Mild sedation. No lateralizing sign. Psych/Mental Status: Auditory hallucination Assessment & Plan Assessment/Plan (1) Acute respiratory failure with hypoxia and hypercarbia: (2) Lung mass: (3) Postobstructive pneumonia: PLAN: Plan Patient is a 48-year-old lady with history of polysubstance dependence who was admitted with progressive shortness of breath 1. Acute hypoxic and hypercarbic combined respiratory failure: candida with bronchus intermedius narrowing and resultant right middle lobe collapsed. Findings concerning for primary lung malignancy,/malignant adenopathy. Was also found to have Right middle lobe consolidative, ground-glass opacities and interlobular septal thickening, likely secondary to postobstructive pneumonitis. Patient was intubated in the emergency department admitted to the intensive care unit patient viral respiratory panel came back positive for rhinovirus. IV Solu-Medrol was added. 07/11: Seen by jewelry drilling machine operator. Patient on 3 sedative medications, propofol, fentanyl and Precedex. Continue scheduled steroid and bronchodilator. 07/12: Patient self extubated. Currently on high flow oxygen 12 L. BAL positive of strep pneumo and [place]. Continue IV ceftriaxone. Later on Precedex drip discontinued. Patient is being transferred out of ICU. She is still on withdrawal having anxiety and restlessness. Started on buprenorphine. Patient U tox was positive of benzodiazepines. 2. Postobstructive pneumonia ? Patient was started on vancomycin as well as Zosyn. Consult placed to jewelry drilling machine operator. Case discussed with Dr. Morales plans for patient to undergo bronchoscopy ? 07/08/2024;Underwent bronchoscopy with bronchial lavage. Patient remains on the vent. Per nursing staff patient was reported to be hypoxic during her weaning and continues to experience copious amount of secretions from her endotracheal tube cultures from bronchial lavage came back positive for strep pneumo. Patient remains on appropriate antibiotic therapy 07/11: Antibiotic de-escalated to IV ceftriaxone for strep pneumo. 3. History of polysubstance dependence U tox on admission reported presumptive buprenorphine as well as benzos. 4. Tobacco dependence ? Per history plan is to residential treatment counselor patient on cessation, once extubated 5. Hypophosphatemia ? Corrected via parenteral route repeat phosphate levels ordered in a.m. Also ordered magnesium level 6. Hyperglycemia with hemoglobin A1c of 6.5 ?Accu-Chek before meals and at bedtime with Humalog sliding scale coverage and hypoglycemia protocol. 7. DVT prophylaxis ? On enoxaparin Charges/Coding Visit Charges Inpatient E&M: 43068 Subs Hosp L3
--- NOTE | 2024-07-12 07:43 | PCM.PN.INT ---
Assessment & Plan Assessment/Plan (1) Acute respiratory failure with hypoxia and hypercarbia: (2) Postobstructive pneumonia: (3) Lung mass: PLAN: Plan RECOMMENDATIONS: 1. Supplemental oxygen to maintain saturations at or above 90%. 2. Discontinue Precedex. Okay to start scheduled BuSpar. 3. Continue antimicrobials to complete 7 days of therapy. 4. Continue scheduled bronchodilators and steroids. Okay to transition to prednisone 40 mg daily x 5 days. 5. Potassium repletion as ordered. 6. Encourage incentive spirometer use and mobilize patient as tolerated. 7. The patient will need to follow-up in our office after discharge so that we can coordinate timing for EBUS. IMPRESSIONS: 1. Acute combined respiratory failure Most likely multifactorial in etiology. The patient has suspected underlying obstructive lung disease, based upon a longstanding history of tobacco abuse, which is likely in a state of exacerbation secondary to a rhinovirus infection with superimposed pneumococcal pneumonia. In addition, CT imaging demonstrated the presence of a right hilar lung mass leading to adjacent airway compression and mucous plugging. Accordingly, the patient has been maintained on antimicrobials, bronchodilators and steroids. The patient ultimately underwent bedside bronchoscopy on July 07 which demonstrated significant secretions throughout the right tracheobronchial tree with narrowing at the orifice of the right middle lobe. No endobronchial lesions were identified. Therapeutic airway suctioning was performed and BAL was obtained. The patient will ultimately need to follow-up in the pulmonary medicine clinic after discharge so that we can coordinate the timing for an EBUS procedure to be performed. Ultimately, the patient self extubated on July 11. Plan to continue supplemental oxygen to maintain saturations at or above 90%. Antibiotics will be continued to complete 7 days of therapy. The patient will be transitioned from IV Solu-Medrol to prednisone 40 mg daily to complete 5 days of therapy. 2. Longstanding tobacco abuse history/polysubstance abuse Complicates care, management, recovery and prognosis. Continue supportive measures as noted above. Physical therapy to continue to work with the patient. This note was generated with MyPron[employer] software. It may contain incorrect words, spelling, and punctuation that were not noted in checking the note before signing. Subjective Subjective The patient was seen and examined at the bedside this morning. Events from the last 24 hours have been reviewed. The patient is currently afebrile, hemodynamically stable and maintaining appropriate oxygen saturations on 12 L/min via nasal cannula. The patient does report baseline anxiety at home. She is currently documented to be overall net +2.4 L for the hospitalization. Potassium was low this morning at 3.2. Objective Data Objective Data The patient's most recent lab work, culture data and imaging studies have all been personally reviewed. Respiratory viral panel was positive for rhinovirus. BAL culture was positive for Streptococcus pneumonia. Vital Signs: Vital Signs Temp Pulse Resp BP Pulse Ox O2 Del Method O2 Flow Rate 97.3 F L 70 16 160/87 H 97 Nasal Cannula 10 07/12/24 04:00 07/12/24 07:12 07/12/24 07:12 07/12/24 07:00 07/12/24 07:12 07/12/24 07:12 07/12/24 07:12 FiO2 40 07/11/24 08:00 Oxygen Flow Rate (L/min) 10 Oxygen Delivery Method Nasal Cannula Weight: 137 lb 2.04 oz Body Mass Index (BMI) 22.8 Intake & Output: Intake and Output for Last 24 Hours 07/10/24 07/11/24 07/12/24 23:59 23:59 23:59 Intake Total 3781.65 / 3917.76 2249.69 / 2274.99 201.92 / 201.92 Output Total 3515 / 4265 4800 / 4800 400 / 400 Balance 266.65 / -347.24 -2550.31 / -2525.01 -198.08 / -198.08 Lab / Micro Data Attestation: I reviewed the patient's lab results. 07/12/24 04:15 07/12/24 04:15 Labs: Laboratory Results - last 24 hr 07/12/24 04:15: WBC 12.9 H, RBC 6.02 H, Hgb 16.0 H, Hct 49.6 H, MCV 82.4, MCH 26.6 L, MCHC 32.3, RDW Std Deviation 56.5 H, RDW Coeff of Myla 19.9 H, Plt Count 285, MPV 9.3, Immature Gran % (Auto) 0.500, Neut % (Auto) 68.2, Lymph % (Auto) 24.2, [place] % (Auto) 5.6, Eos % (Auto) 0.8, Baso % (Auto) 0.7, Absolute Neuts (auto) 8.8 H, Absolute Lymphs (auto) 3.13, Nucleated RBC % 0, Sodium 140, Potassium 3.2 L, Chloride 99, Carbon Dioxide 29.8, Anion Gap 12, BUN 11, Creatinine 0.43 L, Estim Creat Clear Calc 142.41, Est GFR (MDRD) Non-Af 119, BUN/Creatinine Ratio 24.7 H, Glucose 107 H, Calcium 9.1 Micro: Microbiology 07/06/24 16:06 Blood Culture (Wb) - Anticubital Right Blood Culture - Final No growth in 5 days. 07/06/24 14:56 Blood Culture (Wb) - Anticubital Left Blood Culture - Final No growth in 5 days. 07/07/24 Unknown Bronchial Lavage - Right Middle Lobe Gram Stain - Final 07/07/24 Unknown Bronchial Lavage - Right Middle Lobe Respiratory Culture - Final Presumptive C albicans Streptococcus pneumoniae 07/06/24 21:00 Sputum, Induced/Lukens Gram Stain - Final 07/06/24 21:00 Sputum, Induced/Lukens Respiratory Culture - Final Streptococcus pneumoniae Presumptive C albicans 07/06/24 16:06 Urine, Clean Catch Urine Culture - Final Klebsiella aerogenes 07/07/24 01:20 Mucosa - Nasopharyngeal Respiratory Panel (PCR) - Final Rhinovirus 07/07/24 01:50 Nasal Secretion MRSA (PCR) - Final 07/06/24 16:06 Urine Catheter - Catheter Legionella Antigen - Final 07/06/24 16:06 Urine Catheter - Catheter Streptococcus pneumoniae Antigen (M - Final 07/06/24 14:55 Mucosa - Nose SARS-CoV-2, Influenza & RSV (PCR) - Final ABG Data ABG results: ABG 07/06/24 22:25 Specimen Type ART Sample Site R Radial pH 7.34 L Bicarbonate Actual 34.7 H Total CO2 37 Base Excess 9 H O2 Saturation 97 O2 % 50.0 ABG pCO2 63.8 H ABG pO2 95 Morgan Test Positive Respiration Rate 16 O2 Delivery Device ET Tube Vent Mode AC Tidal Volume 450.0 POC PEEP 5 Physical Exam Const alert and no apparent distress General Appearance: cooperative HEENT normocephalic, head/scalp atraumatic and moist oral mucous membranes Eyes PERRL, EOMs intact bilaterally and conjunctivae normal Neck supple General: trachea midline Chest inspection of chest normal Resp Auscultation: diminished lung sounds; Negative for rales, rhonchi or wheezes Cardio regular rate and regular rhythm GI normal to inspection, nondistended, normoactive bowel sounds Extremity no clubbing, cyanosis or edema Skin no rashes or lesions noted Neuro oriented x3, CN's II-XII intact bilaterally and moves all extremities Psych Mood & Affect: anxious Charges/Coding Visit Charges Inpatient E&M: 75444 Subs Hosp L3
[2024-07-12] MEDS: CHLORHEXIDINE GLUC 2% CLOTH 1 EACH TOWELETTE TOPICAL (09:09)
[2024-07-12] MEDS: Enoxaparin 40 MG/0.4 ML Syringe SC (09:09)
[2024-07-12] MEDS: busPIRone 5 MG Tablet 10 MG PO ×3 (09:09→23:13)
[2024-07-12] MEDS: Ceftriaxone 1 GM/50 ML BAG IV (09:10)
[2024-07-12] MEDS: Gabapentin 600 MG Tablet PO ×2 (09:10→20:59)
[2024-07-12] MEDS: Pantoprazole Sodium 40 MG in 0.9% Normal Saline (100mL MB+) 100 ML 330 MG IV (09:11)
--- NOTE | 2024-07-12 11:48 | CHAPLAIN ---
Type of Pastoral Visit ___ Initial Visit _x__ Follow-up Visit ___ On-call Visit ___ General Patient Visit ___ Spiritual Assessment ___ Family Conference ___ Bereavement ___ Rapid Response ___ Code Blue ___ Other (describe below) Pastoral Care Referral From ___ Patient _x__ Family ___ Nurse ___ Physician ___ Dielectric Testing Machine Operator ___ Advertising Manager ___ Other (describe below) Sacrament/Intervention _x__ Active listening ___ Anointing ___ Anabaptist ___ Bereavement ___ Communion ___ Tricia exploration ___ ___ Life review _x__ Prayer ___ Reconciliation ___ Sacrament of Sick ___ Supportive presence ___ Wedding ___ Other (describe below) Pastoral Comments patient is breathing on her own and recovering better now; spouse is with her again; both are welcoming as they explain the current status of health and care; pt is uncomfortable and admits to some pain while acknowledging her improvements; pt welcomes a prayer; ongoing support is offered as needed
[2024-07-12] MEDS: predniSONE 20 MG Tablet 40 MG PO (12:06)
[2024-07-12] MEDS: guaiFENesin/D-Methorphan TAB.SR.12H 2 TABLET PO (14:32)
[2024-07-12] MEDS: Phenobarbital 32.4 MG Tablet 64.8 MG PO (14:33)
--- NOTE | 2024-07-12 15:59 | CASEMGMT ---
RADHA CM to pt room at this time to discuss DC planning. At this time, the pt states that she prefers to go home at the time of DC with her family and feels safe doing so. Pt denies SNF needs. Pt is aware that HHC is not an option as she does not have a PCP. Pt was encouraged to get established [facility] and reports understanding. Pt states that her daughter has home oxygen equipment but the pt does not. Pt does not have insurance and will likely have to SP if she were to qualify. Pt states that she was already aware of this. Pt denies wanting to review a list of local DME companies and states that she prefers [employer] if she were to qualify for home oxygen use. Pt is also aware that pulmonary is recommending OP f/u for an OP EBUS. Pt states understanding and denies further questions or concerns at this time. CM to continue to follow. Tentative plan: Home with pt's family support, follow for home oxygen needs, Rx costs d/t SP status, establishment with a PCP, and f/u with Pulmonary for OP EBUS.
[2024-07-12 16:40] LABS: Prothrombin Time (Protime)PT. 13.3 SECONDS (11.7-14.9)
[2024-07-12] MEDS: Phenobarbital 32.4 MG Tablet 97.2 MG PO (20:37)
[2024-07-12] MEDS: guaiFENesin Dm 10 ML UDC PO (23:13)
[2024-07-13] VITALS (12 sets, daily range): BP systolic 97–156; BP diastolic 66–80; PULSE 97–118; RESP 17–19; TEMP 36.8–37.5; O2SAT 91–96; BMI 22.7
[2024-07-13] MEDS: Phenobarbital 32.4 MG Tablet 64.8 MG PO ×6 (02:19→22:12)
[2024-07-13] MEDS: guaiFENesin Dm 10 ML UDC PO ×5 (02:19→22:12)
[2024-07-13] MEDS: 0.9% Saline Lock 10 ML Syringe IV (04:44)
[2024-07-13] MEDS: 0.9% Normal Saline (500mL Bag) 500 ML 999 ML IV (04:44)
[2024-07-13 06:45] LABS: Absolute Lymphocyte Count 3.76 X10^3/uL (0.83-4.51); Absolute Neutrophil Count 8.7 X10^3/uL (2.0-7.7); Basophil# 0.07 X10^3/uL; Basophil% 0.5 % (0-1); Eosinophil# 0.13 X10^3/uL; Hematocrit 50.3 % (37-47); Lymphocyte # 3.76 X10^3/ul (0.83-4.51); Lymphocyte % 27.7 % (19-41); Mean Corp Hgb Conc 31.8 g/dL (32-36); Mean Corpuscular Hgb 26.4 pg (27.0-32.0); Mean Platelet Vol. 9.5 fl (6.2-12.0); Monocyte# 0.82 X10^3/uL; NRBC Flagged by Analyzer 0 % (0-5); Neutrophil # 8.74 X10^3/uL (2.7-7.7); Neutrophil % 64.3 % (47-70); Platelet Count 308 K/mm3 (150-450); RBC Distribution Width CV 19.8 % (11.6-14.6); RBC Distribution Width SD 56.1 fl (35.1-43.9); Red Blood Count 6.06 M/mm3 (4.2-5.4); White Blood Count 13.6 K/mm3 (4.4-11.0)
[2024-07-13] MEDS: busPIRone 5 MG Tablet 10 MG PO ×3 (06:54→22:12)
[2024-07-13] MEDS: Ipratropium/Albuterol Sulfate 3 ML AMPUL.NEB INHALATION ×4 (07:02→20:33)
[2024-07-13 07:10] LABS: ALB/GLOB Ratio 1.2 RATIO (0.9-2.4); AST(SGOT) 17 U/L (<=31); Alanine Aminotransfer ALT/SGPT 13 U/L (<=34); Albumin, Serum 3.3 g/dL (3.5-5.0); Alkaline Phosphatase 66 U/L (35-104); Anion Gap 13 (5-15); BUN 16 mg/dL (4-19); BUN/Creat Ratio 31.1 RATIO (10-20); Carbon Dioxide 27.5 mmol/L (21.0-32.0); Chloride 100 mmol/L (98-108); EST Glomerular Filtration Rate 115 (>60); Estimated Creatinine Clearance 122.47 ml/min (50-250); Globulin 2.8 g/dL (2.2-4.2); Glucose 105 mg/dL (70-99); Potassium 3.1 mmol/L (3.3-5.1); Protein, Total 6.2 g/dL (5.9-8.4); Sodium Level 140 mmol/L (133-145); Total Bilirubin 0.56 mg/dL (0.00-1.30)
[2024-07-13] MEDS: Ceftriaxone 1 GM/50 ML BAG IV (10:11)
[2024-07-13] MEDS: Potassium Chloride Oral Tablet 20 MEQ 40 MEQ PO ×2 (10:11→18:24)
[2024-07-13] MEDS: Polyethylene Glycol 3350 17 GM PACKET 34 GM NG (10:11)
[2024-07-13] MEDS: Gabapentin 600 MG Tablet PO ×2 (10:11→22:12)
[2024-07-13] MEDS: CHLORHEXIDINE GLUC 2% CLOTH 1 EACH TOWELETTE TOPICAL (10:14)
[2024-07-13] MEDS: 0.9% Normal Saline (100mL Bag) 100 ML 15 ML IV (10:21)
[2024-07-13] MEDS: Folic Acid 1 MG Tablet PO (10:21)
[2024-07-13] MEDS: predniSONE 20 MG Tablet 40 MG PO (10:21)
[2024-07-13] MEDS: Enoxaparin 40 MG/0.4 ML Syringe SC (10:22)
--- NOTE | 2024-07-13 10:44 | PCM.PN.INT ---
Assessment & Plan Assessment/Plan (1) Acute respiratory failure with hypoxia and hypercarbia: (2) Postobstructive pneumonia: (3) Lung mass: PLAN: Plan RECOMMENDATIONS: 1. Supplemental oxygen to maintain saturations at or above 90%. 2. Continue antimicrobials to complete 7 days of therapy. 3. Continue scheduled bronchodilators and prednisone 40 mg daily x 5 days. 4. Encourage incentive spirometer use and mobilize patient as tolerated. 5. Perform walking oximetry study prior to consideration for discharge home. 6. The patient will need to follow-up in our office after discharge so that we can coordinate timing for EBUS. 7. Will sign off at this time. Please call with any additional questions. IMPRESSIONS: 1. Acute combined respiratory failure Most likely multifactorial in etiology. The patient has suspected underlying obstructive lung disease, based upon a longstanding history of tobacco abuse, which is likely in a state of exacerbation secondary to a rhinovirus infection with superimposed pneumococcal pneumonia. In addition, CT imaging demonstrated the presence of a right hilar lung mass leading to adjacent airway compression and mucous plugging. Accordingly, the patient has been maintained on antimicrobials, bronchodilators and steroids. The patient ultimately underwent bedside bronchoscopy on July 07 which demonstrated significant secretions throughout the right tracheobronchial tree with narrowing at the orifice of the right middle lobe. No endobronchial lesions were identified. Therapeutic airway suctioning was performed and BAL was obtained. The patient will ultimately need to follow-up in the pulmonary medicine clinic after discharge so that we can coordinate the timing for an EBUS procedure to be performed. Ultimately, the patient self extubated on July 11. Plan to continue supplemental oxygen to maintain saturations at or above 90%. Antibiotics will be continued to complete 7 days of therapy along with prednisone 40 mg daily to complete 5 days of therapy. 2. Longstanding tobacco abuse history/polysubstance abuse Complicates care, management, recovery and prognosis. Continue supportive measures as noted above. Physical therapy to continue to work with the patient. This note was generated with [employer] dictation software. It may contain incorrect words, spelling, and punctuation that were not noted in checking the note before signing. Subjective Subjective The patient was seen and examined at the bedside this morning. Events from the last 24 hours have been reviewed. The patient is currently afebrile, hemodynamically stable and maintaining appropriate oxygen saturations on 5 L/min via nasal cannula. White blood cell count is stable at 13,000. Potassium is low at 3.1. Objective Data Objective Data The patient's most recent lab work, culture data and imaging studies have all been personally reviewed. Respiratory viral panel was positive for rhinovirus. BAL culture was positive for Streptococcus pneumonia. Vital Signs: Vital Signs Temp Pulse Resp BP Pulse Ox O2 Del Method O2 Flow Rate 98.2 F 108 H 18 116/67 94 Nasal Cannula 5 07/13/24 06:52 07/13/24 07:02 07/13/24 07:02 07/13/24 06:52 07/13/24 07:02 07/13/24 07:02 07/13/24 07:02 FiO2 40 07/11/24 08:00 Oxygen Flow Rate (L/min) 5 Oxygen Delivery Method Nasal Cannula Weight: 136 lb 10.986 oz Body Mass Index (BMI) 22.7 Intake & Output: Intake and Output for Last 24 Hours 07/11/24 07/12/24 07/13/24 23:59 23:59 23:59 Intake Total 2249.69 / 2274.99 500.29 / 500.29 500 / 500 Output Total 4800 / 4800 400 / 400 Balance -2550.31 / -2525.01 100.29 / 100.29 500 / 500 Lab / Micro Data Attestation: I reviewed the patient's lab results. 07/13/24 05:26 07/13/24 05:26 Labs: Laboratory Results - last 24 hr 07/12/24 16:00: PT 13.3, INR 1.0 07/13/24 05:26: WBC 13.6 H, RBC 6.06 H, Hgb 16.0 H, Hct 50.3 H, MCV 83.0, MCH 26.4 L, MCHC 31.8 L, RDW Std Deviation 56.1 H, RDW Coeff of Myla 19.8 H, Plt Count 308, MPV 9.5, Immature Gran % (Auto) 0.500, Neut % (Auto) 64.3, Lymph % (Auto) 27.7, [facility] % (Auto) 6.0, Eos % (Auto) 1.0, Baso % (Auto) 0.5, Absolute Neuts (auto) 8.7 H, Absolute Lymphs (auto) 3.76, Nucleated RBC % 0, Sodium 140, Potassium 3.1 L, Chloride 100, Carbon Dioxide 27.5, Anion Gap 13, BUN 16, Creatinine 0.50 L, Estim Creat Clear Calc 122.47, Est GFR (MDRD) Non-Af 115, BUN/Creatinine Ratio 31.1 H, Glucose 105 H, Calcium 9.0, Total Bilirubin 0.56, AST 17, ALT 13, Alkaline Phosphatase 66, Total Protein 6.2, Albumin 3.3 L, Globulin 2.8, Albumin/Globulin Ratio 1.2 Micro: Microbiology 07/06/24 16:06 Blood Culture (Wb) - Anticubital Right Blood Culture - Final No growth in 5 days. 07/06/24 14:56 Blood Culture (Wb) - Anticubital Left Blood Culture - Final No growth in 5 days. 07/07/24 Unknown Bronchial Lavage - Right Middle Lobe Gram Stain - Final 07/07/24 Unknown Bronchial Lavage - Right Middle Lobe Respiratory Culture - Final Presumptive C albicans Streptococcus pneumoniae 07/06/24 21:00 Sputum, Induced/Lukens Gram Stain - Final 07/06/24 21:00 Sputum, Induced/Lukens Respiratory Culture - Final Streptococcus pneumoniae Presumptive C albicans 07/06/24 16:06 Urine, Clean Catch Urine Culture - Final Klebsiella aerogenes 07/07/24 01:20 Mucosa - Nasopharyngeal Respiratory Panel (PCR) - Final Rhinovirus 07/07/24 01:50 Nasal Secretion MRSA (PCR) - Final 07/06/24 16:06 Urine Catheter - Catheter Legionella Antigen - Final 07/06/24 16:06 Urine Catheter - Catheter Streptococcus pneumoniae Antigen (M - Final 07/06/24 14:55 Mucosa - Nose SARS-CoV-2, Influenza & RSV (PCR) - Final ABG Data ABG results: ABG 07/06/24 22:25 Specimen Type ART Sample Site R Radial pH 7.34 L Bicarbonate Actual 34.7 H Total CO2 37 Base Excess 9 H O2 Saturation 97 O2 % 50.0 ABG pCO2 63.8 H ABG pO2 95 Morgan Test Positive Respiration Rate 16 O2 Delivery Device ET Tube Vent Mode AC Tidal Volume 450.0 POC PEEP 5 Physical Exam Const alert and no apparent distress Constitutional Narrative: Sitting in bedside recliner. General Appearance: cooperative HEENT normocephalic, head/scalp atraumatic and moist oral mucous membranes Eyes PERRL, EOMs intact bilaterally and conjunctivae normal Neck supple General: trachea midline Chest inspection of chest normal Resp Auscultation: diminished lung sounds; Negative for rales, rhonchi or wheezes Cardio regular rate and regular rhythm GI normal to inspection, nondistended, normoactive bowel sounds Extremity no clubbing, cyanosis or edema Skin no rashes or lesions noted Neuro oriented x3, CN's II-XII intact bilaterally and moves all extremities Psych Mood & Affect: anxious Charges/Coding Visit Charges Inpatient E&M: 22166 Subs Hosp L2
[2024-07-13 13:52] LABS: Pathologist Comment/Body Fluid Reviewed
--- NOTE | 2024-07-13 16:53 | PN.HOSP_ITS ---
Reason for Visit Reason for Visit: Diagnoses Pneumonia, unspecified organism (07/06/24) Acute respiratory failure with hypoxia (07/06/24) Acute respiratory failure with hypercapnia (07/06/24) Other nonspecific abnormal finding of lung field (07/06/24) Objective Data Objective Data Vital Signs: Vital Signs Temp Pulse Resp BP Pulse Ox O2 Del Method O2 Flow Rate 98.2 F 103 H 18 125/80 H 93 Nasal Cannula 4 07/13/24 12:00 07/13/24 14:54 07/13/24 14:54 07/13/24 12:00 07/13/24 14:54 07/13/24 14:54 07/13/24 15:36 FiO2 40 07/11/24 08:00 Oxygen Flow Rate (L/min) 4 Oxygen Delivery Method Nasal Cannula Weight: 136 lb 10.986 oz Body Mass Index (BMI) 22.7 Intake & Output: Intake and Output for Last 24 Hours 07/11/24 07/12/24 07/13/24 23:59 23:59 23:59 Intake Total 2249.69 / 2274.99 500.29 / 500.29 650 / 650 Output Total 4800 / 4800 400 / 400 Balance -2550.31 / -2525.01 100.29 / 100.29 650 / 650 Lab / Micro Data 07/13/24 05:26 07/13/24 05:26 Labs: Laboratory Results - last 24 hr 07/07/24 : Fl Pathologist Comment Reviewed 07/13/24 05:26: WBC 13.6 H, RBC 6.06 H, Hgb 16.0 H, Hct 50.3 H, MCV 83.0, MCH 26.4 L, MCHC 31.8 L, RDW Std Deviation 56.1 H, RDW Coeff of Myla 19.8 H, Plt Count 308, MPV 9.5, Immature Gran % (Auto) 0.500, Neut % (Auto) 64.3, Lymph % (Auto) 27.7, [place] % (Auto) 6.0, Eos % (Auto) 1.0, Baso % (Auto) 0.5, Absolute Neuts (auto) 8.7 H, Absolute Lymphs (auto) 3.76, Nucleated RBC % 0, Sodium 140, Potassium 3.1 L, Chloride 100, Carbon Dioxide 27.5, Anion Gap 13, BUN 16, C reatinine 0.50 L, Estim Creat Clear Calc 122.47, Est GFR (MDRD) Non-Af 115, B UN/Creatinine Ratio 31.1 H, Glucose 105 H, Calcium 9.0, Total Bilirubin 0.56, AST 17, ALT 13, Alkaline Phosphatase 66, Total Protein 6.2, Albumin 3.3 L, Globulin 2.8, Albumin/Globulin Ratio 1.2 Micro: Microbiology 07/06/24 16:06 Blood Culture (Wb) - Anticubital Right Blood Culture - Final No growth in 5 days. 07/06/24 14:56 Blood Culture (Wb) - Anticubital Left Blood Culture - Final No growth in 5 days. 07/07/24 Unknown Bronchial Lavage - Right Middle Lobe Gram Stain - Final 07/07/24 Unknown Bronchial Lavage - Right Middle Lobe Respiratory Culture - Final Presumptive C albicans Streptococcus pneumoniae 07/06/24 21:00 Sputum, Induced/Lukens Gram Stain - Final 07/06/24 21:00 Sputum, Induced/Lukens Respiratory Culture - Final Streptococcus pneumoniae Presumptive C albicans 07/06/24 16:06 Urine, Clean Catch Urine Culture - Final Klebsiella aerogenes 07/07/24 01:20 Mucosa - Nasopharyngeal Respiratory Panel (PCR) - Final Rhinovirus 07/07/24 01:50 Nasal Secretion MRSA (PCR) - Final 07/06/24 16:06 Urine Catheter - Catheter Legionella Antigen - Final 07/06/24 16:06 Urine Catheter - Catheter Streptococcus pneumoniae Antigen (M - Final 07/06/24 14:55 Mucosa - Nose SARS-CoV-2, Influenza & RSV (PCR) - Final Physical Exam Narrative Seen and examined. Patient is extubated actually self extubated at night on 07/12/2019. Patient transferred to floor yesterday evening. Sinus rhythm. BP better. Kirby catheter removed. On phenobarb. Her hallucinations are controlled. No auditory hallucinations. Physical exam General: Awake, lethargic. HEENT: Atraumatic, PERRLA, EOMI, Normocephalic Oral: No oral ulcer. Neck: Supple, No JVD, Negative Carotid Bruits Chest wall/Lungs: Air entry diminished in bilateral lung bases. Mild wheezing. Cardiovascular: Sinus rhythm normal S1, Normal S2, No M/G/R Abdomen: Bowel Sounds Present, Soft, Non Tender, Non-Distended : No dysuria. No renal angle tenderness. No suprapubic tenderness. Extremities: No edema, Capillary Refill Less than 3 Seconds Skin: No rashes, No breakdown Musculoskeletal: Hands and feet in soft restraint. No Tenderness to Palpation of Joints or Extremities Neurological: Mild sedation. No lateralizing sign. Psych/Mental Status: Mild anxiety. Assessment & Plan Assessment/Plan (1) Acute respiratory failure with hypoxia and hypercarbia: (2) Lung mass: (3) Postobstructive pneumonia: PLAN: Plan Patient is a 48-year-old lady with history of polysubstance dependence who was admitted with progressive shortness of breath 1. Acute hypoxic and hypercarbic combined respiratory failure: candida with bronchus intermedius narrowing and resultant right middle lobe collapsed. Findings concerning for primary lung malignancy,/malignant adenopathy. Was also found to have Right middle lobe consolidative, ground-glass opacities and interlobular septal thickening, likely secondary to postobstructive pneumonitis. Patient was intubated in the emergency department admitted to the intensive care unit patient viral respiratory panel came back positive for rhinovirus. IV Solu- Medrol was added. 07/11: Seen by culled fruit packer. Patient on 3 sedative medications, propofol, fentanyl and Precedex. Continue scheduled steroid and bronchodilator. 07/12: Patient self extubated. Currently on high flow oxygen 12 L. BAL positive of strep pneumo and Candace. Continue IV ceftriaxone. Later on Precedex drip discontinued. Patient is being transferred out of ICU. She is still on withdrawal having anxiety and restlessness. Patient U tox was positive of benzodiazepines. 07/13: Continue phenobarb. She was on buprenorphine that was discontinued 2. Postobstructive pneumonia ? Patient was started on vancomycin as well as Zosyn. Consult placed to culled fruit packer. Case discussed with Dr. Morales plans for patient to undergo bronchoscopy ? 07/08/2024;Underwent bronchoscopy with bronchial lavage. Patient remains on the vent. Per nursing staff patient was reported to be hypoxic during her weaning and continues to experience copious amount of secretions from her endotracheal tube cultures from bronchial lavage came back positive for strep pneumo. Patient remains on appropriate antibiotic therapy 07/11: Antibiotic de-escalated to IV ceftriaxone for strep pneumo. 07/13: Discussed with ID. She will complete 7/3-day of antibiotic tomorrow. No indication for treatment of Candace on BAL. 3. History of polysubstance dependence U tox on admission reported presumptive buprenorphine as well as benzos. 4. Tobacco dependence ? Per history plan is to area counselor patient on cessation, once extubated 5. Hypophosphatemia ? Corrected via parenteral route repeat phosphate levels ordered in a.m. Also ordered magnesium level 6. Hyperglycemia with hemoglobin A1c of 6.5 ?Accu-Chek before meals and at bedtime with Humalog sliding scale coverage and hypoglycemia protocol. 7. DVT prophylaxis ? On enoxaparin Charges/Coding Visit Charges Inpatient E&M: 21728 Subs Hosp L2
[2024-07-14 01:59] VITALS: BP 145/65; PULSE 93; RESP 18; TEMP 37; O2SAT 94
[2024-07-14] MEDS: Phenobarbital 32.4 MG Tablet 64.8 MG PO ×3 (02:21→10:12)
[2024-07-14] MEDS: guaiFENesin Dm 10 ML UDC PO ×2 (02:21→10:13)
[2024-07-14] MEDS: busPIRone 5 MG Tablet 10 MG PO (06:31)
[2024-07-14 06:59] VITALS: PULSE 98; RESP 20; O2SAT 96
[2024-07-14] MEDS: Ipratropium/Albuterol Sulfate 3 ML AMPUL.NEB INHALATION (06:59)
[2024-07-14 07:18] LABS: Absolute Lymphocyte Count 3.75 X10^3/uL (0.83-4.51); Absolute Neutrophil Count 7.2 X10^3/uL (2.0-7.7); Basophil# 0.09 X10^3/uL; Basophil% 0.8 % (0-1); Eosinophil# 0.08 X10^3/uL; Eosinophils% 0.7 % (0-5); Hematocrit 53.9 % (37-47); Hemoglobin 17.4 g/dL (12.0-15.0); Lymphocyte # 3.75 X10^3/ul (0.83-4.51); Lymphocyte % 31.5 % (19-41); Mean Corp Hgb Conc 32.3 g/dL (32-36); Mean Corpuscular Hgb 26.4 pg (27.0-32.0); Mean Corpuscular Volume 81.8 fL (81-99); Mean Platelet Vol. 9.4 fl (6.2-12.0); Monocyte# 0.73 X10^3/uL; Monocyte% 6.1 % (0-10); NRBC Flagged by Analyzer 0 % (0-5); Neutrophil # 7.21 X10^3/uL (2.7-7.7); Neutrophil % 60.5 % (47-70); Platelet Count 280 K/mm3 (150-450); RBC Distribution Width CV 19.9 % (11.6-14.6); Red Blood Count 6.59 M/mm3 (4.2-5.4); White Blood Count 11.9 K/mm3 (4.4-11.0)
[2024-07-14 07:46] LABS: Anion Gap 14 (5-15); BUN 9 mg/dL (4-19); BUN/Creat Ratio 18.5 RATIO (10-20); Calcium,Total 9.4 mg/dL (7.6-11.0); Carbon Dioxide 28.5 mmol/L (21.0-32.0); Chloride 101 mmol/L (98-108); Creatinine, Serum 0.47 mg/dL (0.70-1.20); EST Glomerular Filtration Rate 117 (>60); Estimated Creatinine Clearance 130.29 ml/min (50-250); Glucose 103 mg/dL (70-99); Potassium 2.9 mmol/L (3.3-5.1); Sodium Level 143 mmol/L (133-145)
[2024-07-14 07:57] VITALS: BP 140/75; PULSE 109; RESP 18; TEMP 36.8; O2SAT 91
[2024-07-14 08:51] VITALS: O2SAT 84; O2SAT 88; O2SAT 90; O2SAT 91
--- NOTE | 2024-07-14 08:51 | DCINST_ITS ---
Discharge Instructions Follow Up Care Test Results: Test results from this visit will be discussed in further detail at your follow- up appointment, if applicable. Discharge Plan Admission Admit Date/Time: 07/06/24 23:48 Primary Reason for Your Visit: pneumonia, substance use Attending Provider: Radames Thomas Primary Care Provider: Care Physician,No Primary Consulting Providers: Mila Hartman; Bhupendra Tran; Lj Morel; Felton Wall; John Dickey; Víctor Morales; Bhupendra Emmanuel; Praveen Ashraf; Elder Castle; Samantha Jaimes; Amadou Collier; Chas Salcido; Jamey Higginbotham; Kirstie Cerrato; Jocelyne Truong; Almita Padron; Brien Winters; Vikram Mckeon; Jose Antonio Lee; William Farrell; Kim Lira; Lorraine Condon; Adrian Pereira; Nikos Ugalde; Valerio Hopkins; Davie Culver; Selene Gonzalez NP; Alma Santillan Discharge Orders/Prescriptions Prescriptions: No Action gabapentin 600 mg tablet 600 mg PO BID buprenorphine HCl 8 mg tablet, sublingual 16 mg sublingual DAILY multivitamin [Daily Multi-Vitamin] Tablet 1 tab PO DAILY Referrals / Follow Up: Care Physician,No Primary [Primary Care Provider] -
--- NOTE | 2024-07-14 08:51 | PCM.DC ---
Discharge Instructions DC O2, CPAP, BIPAP needs Home O2 Discharge instructions: Yes Type of respiratory needs?: Oxygen Oxygen frequency: Continuous Continuous oxygen liters per minute: 4 Follow Up Care Test Results: Test results from this visit will be discussed in further detail at your follow-up appointment, if applicable. Discharge Plan Admission Admit Date/Time: 07/06/24 23:48 Primary Reason for Your Visit: pneumonia, substance use Attending Provider: Radames Thomas Primary Care Provider: Care Physician,No Primary Consulting Providers: Mila Hartman; Bhupendra Tran; Lj Morel; Felton Wall; John Dickey; Víctor Morales; Bhupendra Emmanuel; Praveen Ashraf; Elder Castle; Samantha Jaimes; Amadou Collier; Chas Salcido; Jamey Higginbotham; Kirstie Cerrato; Jocelyne Truong; Almita Pardon; Brien Winters; Vikram Mckeon; Jose Antonio Lee; William Farrell; Kim Lira; Lorraine Condon; Adrian Pereira; Nikos Ugalde; Valerio Hopkins; Davie Culver; Selene Gonzalez NP; Alma Santillan Instructions Additional Instructions / Restrictions: Continue incentive spirometry and PEP for 1 week Discharge Orders/Prescriptions Prescriptions: New nicotine 14 mg/24 hr Patch 24 Hour 14 mg transdermal DAILY 28 Days Qty: 28 0RF prednisone 20 mg Tablet 40 mg PO BID 7 Days Qty: 28 0RF dextromethorphan-guaifenesin [Mucinex DM] 60-1,200 mg tablet extended release 12 hr 1 tab PO Q12H 7 Days Qty: 14 0RF potassium chloride 20 mEq Tablet,Er Particles/Crystals 40 meq PO BIDCM 7 Days Qty: 28 0RF Continued gabapentin 600 mg tablet 600 mg PO BID buprenorphine HCl 8 mg tablet, sublingual 16 mg sublingual DAILY multivitamin [Daily Multi-Vitamin] Tablet 1 tab PO DAILY Referrals / Follow Up: Care Physician,No Primary [Primary Care Provider] - Víctor Morales, [Med Staff - Active Staff] - Within 2 Weeks Disposition Disposition (needs filled in before D/C Order can be placed): Home, Self Care
--- NOTE | 2024-07-14 08:57 | DS.PCM_ITS ---
Providers Date of Admission: 07/06/24 Date of Discharge: 07/14/24 Primary Care Physician: Debi Primary Care Phys Consultations 07/07/24 00:39 Consult: Dry Cleaner Hand / Pulmonary Medicine Routine Consulting Provider: Pulmonary Medicine kristine Ann Reason for Consult: Vent management EMERGENT Consult: No MD Notified: Yes Date Notified: 07/07/24 Time Notified: 05:12 Method of Notification: Text Reason For Visit: RESPITORY FAILURE LUNG MASS POST OBSTRUCTIVE PNA Diagnosis Discharge Diagnosis (1) Acute respiratory failure with hypoxia and hypercarbia: Status: Acute Code(s): J96.01 - Acute respiratory failure with hypoxia; J96.02 - Acute respiratory failure with hypercapnia (2) Lung mass: Status: Acute Code(s): R91.8 - Other nonspecific abnormal finding of lung field (3) Postobstructive pneumonia: Status: Acute Code(s): J18.9 - Pneumonia, unspecified organism Plan Patient is a 48-year-old lady with history of polysubstance dependence who was admitted with progressive shortness of breath 1. Acute hypoxic and hypercarbic combined respiratory failure: candida with bronchus intermedius narrowing and resultant right middle lobe collapsed. Findings concerning for primary lung malignancy,/malignant adenopathy. Was also found to have Right middle lobe consolidative, ground-glass opacities and interlobular septal thickening, likely secondary to postobstructive pneumonitis. Patient was intubated in the emergency department admitted to the intensive care unit patient viral respiratory panel came back positive for rhinovirus. IV Solu- Medrol was added. 07/11: Seen by full time staff interpreter. Patient on 3 sedative medications, propofol, fentanyl and Precedex. Continue scheduled steroid and bronchodilator. 07/12: Patient self extubated. Currently on high flow oxygen 12 L. BAL positive of strep pneumo and Candace. Continue IV ceftriaxone. Later on Precedex drip discontinued. Patient is being transferred out of ICU. She is still on withdrawal having anxiety and restlessness. Patient U tox was positive of benzodiazepines. 07/13: Continue phenobarb. She was on buprenorphine that was discontinued 07/14: Patient is awake and alert. On 4 L of oxygen. She wants to go home. I think she has decision-making capacity. She has been here for 8 days and wants to go home with family. Her daughter is going to live with her. On oxygen testing it was found that patient needs 6 L of oxygen at rest and ambulation. She is not going to stay and she states she will sign AMA anyway. She is being discharged 2. Postobstructive pneumonia ? Patient was started on vancomycin as well as Zosyn. Consult placed to full time staff interpreter. Case discussed with Dr. Morales plans for patient to undergo bronchoscopy ? 07/08/2024;Underwent bronchoscopy with bronchial lavage. Patient remains on the vent. Per nursing staff patient was reported to be hypoxic during her weaning and continues to experience copious amount of secretions from her endotracheal tube cultures from bronchial lavage came back positive for strep pneumo. Patient remains on appropriate antibiotic therapy 07/11: Antibiotic de-escalated to IV ceftriaxone for strep pneumo. 07/13: Discussed with ID. She will complete 7-day of antibiotic tomorrow. No indication for treatment of Candace on BAL. 07/14: She completed her antibiotic as per ID recommendation 3. History of polysubstance dependence U tox on admission reported presumptive buprenorphine as well as benzos. She has buprenorphine at home. advised follow-up with PCP and outpatient [facility] rehab 4. Tobacco dependence ? 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 Hypophosphatemia ? Corrected via parenteral route repeat phosphate levels ordered in a.m. Also ordered magnesium level 6. Hyperglycemia with hemoglobin A1c of 6.5 ?Accu-Chek before meals and at bedtime with Humalog sliding scale coverage and hypoglycemia protocol. 7. DVT prophylaxis ? On enoxaparin Advised to stay as her oxygen currently 6 L at rest but he states he is signing AMA. Medications at Discharge Home Medications buprenorphine HCl 8 mg sublingual tablet 16 mg sublingual DAILY 07/06/24 gabapentin 600 mg tablet 600 mg PO BID 07/06/24 multivitamin (Daily Multi-Vitamin tablet) 1 tab PO DAILY 07/06/24 dextromethorphan-guaifenesin ER 60 mg-1,200 mg tab,extend release,12hr (Mucinex DM) 1 tab PO Q12H 7 days #14 tabs 07/14/24 nicotine 14 mg/24 hr daily transdermal patch 14 mg transdermal DAILY 28 days #28 ea 07/14/24 potassium chloride 20 mEq tablet,extended release(part/cryst) 40 meq (2 x 20 mEq) PO BIDCM 7 days #28 tabs 07/14/24 prednisone 20 mg tablet 40 mg (2 x 20 mg) PO BID 7 days #28 tabs 07/14/24 Physical Exam Narrative Seen and examined. Patient is awake, oriented x 3. She is talking, oriented. Physical exam General: Awake, lethargic. HEENT: Atraumatic, PERRLA, EOMI, Normocephalic Oral: No oral ulcer. Neck: Supple, No JVD, Negative Carotid Bruits Chest wall/Lungs: Air entry diminished in bilateral lung bases. Mild expiratory wheezing. Cardiovascular: Sinus rhythm normal S1, Normal S2, No M/G/R Abdomen: Bowel Sounds Present, Soft, Non Tender, Non-Distended : No dysuria. No renal angle tenderness. No suprapubic tenderness. Extremities: No edema, Capillary Refill Less than 3 Seconds Skin: No rashes, No breakdown Musculoskeletal: Hands and feet in soft restraint. No Tenderness to Palpation of Joints or Extremities Neurological: Mild sedation. No lateralizing sign. Psych/Mental Status: Mild anxiety. Weight / BMI Weight Weight: 136 lb 10.986 oz Body Mass Index (BMI) 22.7 ABG / Lab / Microbiology Data 07/14/24 06:53 07/14/24 06:53 Laboratory: Laboratory Results - last 24 hr 07/07/24 : Fl Pathologist Comment Reviewed 07/14/24 06:53: WBC 11.9 H, RBC 6.59 H, Hgb 17.4 H, Hct 53.9 H, MCV 81.8, MCH 26.4 L, MCHC 32.3, RDW Std Deviation 55.0 H, RDW Coeff of Myla 19.9 H, Plt Count 280, MPV 9.4, Immature Gran % (Auto) 0.400, Neut % (Auto) 60.5, Lymph % (Auto) 31.5, [place] % (Auto) 6.1, Eos % (Auto) 0.7, Baso % (Auto) 0.8, Absolute Neuts (auto) 7.2, Absolute Lymphs (auto) 3.75, Nucleated RBC % 0, Sodium 143, P otassium 2.9 L, Chloride 101, Carbon Dioxide 28.5, Anion Gap 14, BUN 9, C reatinine 0.47 L, Estim Creat Clear Calc 130.29, Est GFR (MDRD) Non-Af 117, BUN/Creatinine Ratio 18.5, Glucose 103 H, Calcium 9.4 Microbiology: Microbiology 07/06/24 16:06 Blood Culture (Wb) - Anticubital Right Blood Culture - Final No growth in 5 days. 07/06/24 14:56 Blood Culture (Wb) - Anticubital Left Blood Culture - Final No growth in 5 days. 07/07/24 Unknown Bronchial Lavage - Right Middle Lobe Gram Stain - Final 07/07/24 Unknown Bronchial Lavage - Right Middle Lobe Respiratory Culture - Final Presumptive C albicans Streptococcus pneumoniae 07/06/24 21:00 Sputum, Induced/Lukens Gram Stain - Final 07/06/24 21:00 Sputum, Induced/Lukens Respiratory Culture - Final Streptococcus pneumoniae Presumptive C albicans 07/06/24 16:06 Urine, Clean Catch Urine Culture - Final Klebsiella aerogenes 07/07/24 01:20 Mucosa - Nasopharyngeal Respiratory Panel (PCR) - Final Rhinovirus 07/07/24 01:50 Nasal Secretion MRSA (PCR) - Final 07/06/24 16:06 Urine Catheter - Catheter Legionella Antigen - Final 07/06/24 16:06 Urine Catheter - Catheter Streptococcus pneumoniae Antigen (M - Final 07/06/24 14:55 Mucosa - Nose SARS-CoV-2, Influenza & RSV (PCR) - Final D/C Instructions DC O2, CPAP, BIPAP Needs Home O2 Discharge instructions: Yes Type of respiratory needs?: Oxygen Oxygen frequency: Continuous Continuous oxygen liters per minute: 4 DC home with Oxygen: Yes Home O2 MD Review: I have reviewed the oxygen testing, and the patient qualifies for home oxygen equipment and portability. The patient is mobile in the home and the community. Meaningful Use Info Meaningful Use Meaningful Use Diagnoses (Choose all that apply): None applicable Ischemic Stroke Statin Dosing Therapy Reference: STATIN DOSE THERAPY REFERENCE: * Patients > 75 years receive moderate or high dose statin therapy. * Patients 75 years or YOUNGER should receive HIGH intensity statin dose unless contraindicated. You will be required to document reason for non-treatment if statin daily dose does not meet guidelines. HIGH DOSE STATIN THERAPY DAILY Atorvastatin > than or = to 40 mg Rosuvastatin > than or = to 20 mg Amlodipine + Atorvastatin > than or = to 2.5/40 mg Ezetimibe + Simvastatin 10/80 mg Simvastatin 80mg Discharge Plan Admission Admit Date/Time: 07/06/24 23:48 Primary Reason for Your Visit: pneumonia, substance use Attending Provider: Radames Thomas Primary Care Provider: Care Physician,No Primary Consulting Providers: Mila Hartman; Bhupendra Tran; Lj Morel; Felton Wall; John Dickey; Víctor Morales; Bhupendra Emmanuel; Praveen Ashraf; Elder Castle; Samantha Jaimes; Amadou Collier; Chas Salcido; Jamey Higginbotham; Kirstie Cerrato; Jocelyne Truong; Padron,Almita; Vianey,Brien; Irukanna,Vikram; Rosa,Jose Antonio; William Farrell; Kim Lira; Lorraine Condon; Adrian Pereira; Nikos Ugalde; Valerio Hopkins; Davie Culver; Selene Gonzalez NP; Alma Santillan Instructions Additional Instructions / Restrictions: Continue incentive spirometry and PEP for 1 week Discharge Orders/Prescriptions Prescriptions: New nicotine 14 mg/24 hr Patch 24 Hour 14 mg transdermal DAILY 28 Days Qty: 28 0RF prednisone 20 mg Tablet 40 mg PO BID 7 Days Qty: 28 0RF dextromethorphan-guaifenesin [Mucinex DM] 60-1,200 mg tablet extended release 12 hr 1 tab PO Q12H 7 Days Qty: 14 0RF potassium chloride 20 mEq Tablet,Er Particles/Crystals 40 meq PO BIDCM 7 Days Qty: 28 0RF Continued gabapentin 600 mg tablet 600 mg PO BID buprenorphine HCl 8 mg tablet, sublingual 16 mg sublingual DAILY multivitamin [Daily Multi-Vitamin] Tablet 1 tab PO DAILY Referrals / Follow Up: Víctor Morales DO [Med Staff - Active Staff] - Within 2 Weeks Care Physician,No Primary [Primary Care Provider] - Disposition Disposition (needs filled in before D/C Order can be placed): Home, Self Care Charges/Coding Visit Charges Inpatient E&M: 46575 Disch Hosp >30min
--- NOTE | 2024-07-14 09:44 | CASEMGMT ---
SW noted patient triggered SDOH, but unsure for what. SW did see something about advance directives. SW met with patient. Introduced self and role at [facility]. Patient denied having any concerns with living situation, food, utilities, and abuse. Patient declined interest in advance directives. Patient thanked NIMA for checking in with her. Mariela Fernandez [employer]
[2024-07-14] MEDS: Folic Acid 1 MG Tablet PO (10:12)
[2024-07-14] MEDS: predniSONE 20 MG Tablet 40 MG PO (10:12)
[2024-07-14] MEDS: Potassium Chloride Oral Tablet 20 MEQ 40 MEQ PO (10:12)
[2024-07-14] MEDS: Gabapentin 600 MG Tablet PO (10:14)
[2024-07-14] MEDS: CHLORHEXIDINE GLUC 2% CLOTH 1 EACH TOWELETTE TOPICAL (10:16)
--- NOTE | 2024-07-14 10:34 | CASEMGMT ---
Patient has order for discharge. Patient will need oxygen at discharge, prefers [employer] per RN CM assessment. Script received and referral sent to [facility] via [employer] and requested tank to be delivered to room with financial information. RN CM in to discuss needs at discharge. RN CM updated patient regarding home oxygen setup. Patient denied further needs or concerns at this time. RN CM updated discharge plan.
== END 2024-07-14 11:38 | disposition home or self-care (01) | DRG 207 ==
LOC: ED 23:08 → ICU 07-07 00:17 → PCU 07-12 18:48
PROVIDERS: Internal Medicine; Internal Medicine Critical Care Medicine; Admitting Provider Family Medicine; Emergency Provider Emergency Medicine; Referring Provider Emergency Medicine; Visit Provider Internal Medicine
PROC: 0BJ08ZZ Inspection of Tracheobronchial Tree, Via Natural or Artificial Opening Endoscopic (ICD-10-PCS; CPT 31622; principal; 2024-07-07 12:45)
DX: J96.01 Acute respiratory failure with hypoxia (principal); J13 Pneumonia due to Streptococcus pneumoniae; F11.20 Opioid dependence, uncomplicated; J98.19 Other pulmonary collapse; F13.20 Sedative, hypnotic or anxiolytic dependence, uncomplicated; E83.39 Other disorders of phosphorus metabolism; B37.9 Candidiasis, unspecified; B97.89 Other viral agents as the cause of diseases classified elsewhere; J96.02 Acute respiratory failure with hypercapnia; F17.210 Nicotine dependence, cigarettes, uncomplicated; K59.00 Constipation, unspecified; R91.8 Other nonspecific abnormal finding of lung field; R73.9 Hyperglycemia, unspecified
CPT/HCPCS: 31500; 31720; 36415; 36569; 36600; 51702; 71045; 71046; 71275; 74018; 80048; 80053; 80202; 80307; 81001; 82550; 82803; 82962; 83036; 83605; 83735; 83880; 84100; 84145; 84156; 84478; 84484; 85025; 85027; 85610; 85730; 86703; 86706; 86780; 86803; 87015; 87040; 87070; 87077; 87086; 87088; 87101; 87116; 87186; 87205; 87206; 87340; 87449; 87631; 87633; 87641; 88108; 88305; 88312; 88313; 89050; 93005; 94002; 94003; 94640; 94660; 94762; 97162; 97166; 97530; 97535; 97802; 99252; 99285; 99406; Q9967; A4216; G0463; J0330; J0696; J2405